=== PATIENT | male | born 1955 | race Caucasian/White ===

== ENCOUNTER 2017-06-12 14:34 | Emergency (ER) | payer MEDICAID, SELFPAY ==
[2017-06-12 14:37] VITALS: BP 128/84; PULSE 94; RESP 17; TEMP 37.3; O2SAT 93; BMI 29.5
--- NOTE | 2017-06-12 15:10 | EKG12_ITS ---
Test Reason : FALL Blood Pressure : / mmHG Vent. Rate : 089 BPM Atrial Rate : 089 BPM P-R Int : 194 ms QRS Dur : 096 ms QT Int : 352 ms P-R-T Axes : 045 -01 062 degrees QTc Int : 428 ms Normal sinus rhythm Inferior [place], age undetermined, cannot be excluded Confirmed by [address], KYLAH ([id number]), editor newspaper SATNAM MCFARLANE ([id number]) on 06/16/2017 1:13:41 PM Referred By: LYNETTE Confirmed By:KYLAH LEDEZMA MD
--- NOTE | 2017-06-12 15:10 | CT_ITS ---
STUDY: CT BRAIN WITHOUT CONTRAST REASON FOR EXAM: Male, 62 years old. Fell, + ETOH, laceration to bridge of nose. Hx hypertension, prostate cancer. RADIATION DOSAGE (If Supplied By Facility): CTDIvol = ( 44.99 ) mGy, DLP = ( 812.98 ) mGycm TECHNIQUE: Transaxial CT imaging of the brain was performed without administration of intravenous contrast material. Individualized dose optimization techniques were used for this CT. COMPARISON: None. FINDINGS: Normal soft tissue structures. Normal calvarium. Nasal bone fracture. There are calcifications around the cavernous carotid arteries. This is consistent for atherosclerotic disease. Normal size ventricles and extra-axial spaces for the patient's age. Normal white matter tracts of the cerebral hemispheres. Normal basal ganglia and thalami. Normal brainstem. Normal cerebellum. There is no intracranial hemorrhage. There are no findings of an acute ischemic infarction. There is mild maxillary sinus disease. There is an old right basal ganglia lacunar infarct. CT/Brain/Head without Contrast IMPRESSION: Normal unenhanced CT scan of the brain. Nasal bone fracture. Electronically Signed: Yvan Clifford MD at 17:37 EST , Service support ,
[2017-06-12] MEDS: 0.9% Normal Saline 1,000 ML 150 ML IV (15:43)
[2017-06-12] MEDS: Diphth,Pertuss(Acell),Tet Vac 0.5 ML Vial IM (15:43)
--- NOTE | 2017-06-12 15:46 | ED.DCSUM_ITS ---
- ER Visit Summary Date of Service: 06/12/17 Chief Complaint: Fall, blacked out History of Present Illness: The patient is a 62 M with a history of alcoholism. Patient states he has had approximately 6 24 ounce drinks today. He went to [facility] today to request detox. He apparently lost his balance walking down a ramp and fell. He states he either passed out briefly or blacked out. Patient does state that he normally drinks 6-12 24 ounce beers daily. He last went through detox last summer at [facility]. He states he has never had withdrawal seizures. Physical Examination: Vital signs are unremarkable. Patient's lying in bed in no acute distress. Head and neck examination reveals abrasions across the nasal bridge. There is no C-spine tenderness. Heart is regular rate and rhythm. Lung sounds are clear. Abdomen is soft nontender. Extremity examination is unremarkable. He has strong distal pulses with a normal neuro exam. Test Results: EKG is sinus 89 with no sign of acute ischemia. CT head is normal brain. There is a nasal bone fracture noted. CBC and chemistry studies are grossly unremarkable. He has mild hyponatremia 134. LFTs are significant only for an ALT is 69. Coags normal. EtOH is 336. Emergency Department Course and Treatment: Patient's nasal wounds were cleansed. He has large abrasions with areas of skin avulsion. There is no laceration amenable to suture. Patient is given a dose of Keflex due to the underlying nasal bone fracture. Patient tells me repeatedly that he does not want to go home, he wants to be admitted for detox. Although patient states he is starting to feel shaky has he has no visible tremor. He is not tachycardic. He is able to get up and ambulate to the restroom without difficulty. Spoke with the hospitalist and asked if there was any way to admit him for treatment with [facility]. I was advised they could not admit him for this. Patient was given the number for [facility] encouraged to call tomorrow morning. Patient has been in the ER 5-1/2 hours at this point. Treatment Plan: [] Disposition: Discharge Impression: 1. EtOH intoxication 2. Nasal bone fracture 3. Nasal abrasions 4. Fall This note was generated with [employer] dictation software. It may contain incorrect words, spelling, and punctuation that were not noted in review of the chart prior to signing ED Disposition - Plan for ED Patient: Disposition: Home or Assisted Living Chief Complaint: Fall Instructions: ED Abrasion, ED Alcohol Intoxication, ED Mechanical Fall, ED Fx Nasal Conf W X Ray Prescriptions: Cephalexin [Keflex] 500 mg PO Q6 #40 capsule Referrals: [facility] Doctor,Out of [NON-STAFF] - Additional Instructions: Please call [facility] tomorrow to be evaluated for detox [phone]
[2017-06-12 16:30] LABS: Absolute Lymphocyte Count 1.11 X10^3/ul (0.83-4.51); Absolute Neutrophil Count 4.5 X10^3/uL (2.0-7.7); Basophil# 0.14 X10^3/uL; Basophil% 2.2 % (0-1); Eosinophil# 0.06 X10^3/uL; Eosinophils% 0.9 % (0-5); Hematocrit 44.6 % (40-54); Hemoglobin 15.1 g/dl (13.0-16.5); Lymphocyte # 1.11 X10^3/ul (4.0); Lymphocyte % 17.5 % (19-41); Mean Corp Hgb Conc 33.9 g/gl (32-36); Mean Corpuscular Hgb 30.7 pg (27.0-32.0); Mean Corpuscular Volume 90.7 fL (80-94); Mean Platelet Vol. 9.3 fl (6.2-12.0); Monocyte# 0.48 X10^3/uL; Monocyte% 7.6 % (0-10); Neutrophil # 4.53 X10^3/uL (2.7-7.7); Neutrophil % 71.5 % (47-70); Platelet Count 305 K/mm3 (150-450); RBC Distribution Width CV 14.4 % (11.6-14.6); RBC Distribution Width SD 46.7 fl (35.1-43.9); Red Blood Count 4.92 M/mm3 (4.6-6.2); White Blood Count 6.3 K/mm3 (4.4-11.0)
[2017-06-12 16:32] LABS: POSITIVE COUNT NO; POSITIVE DIFFERENTIAL NO; POSITIVE MORPHOLOGY NO; Prothrombin Time (Protime)PT. 12.6 SECONDS (11.7-14.9)
[2017-06-12 16:33] LABS: Partial Thromboplast Time 24.3 Seconds (24.1-36.2)
[2017-06-12 16:45] LABS: AST(SGOT) 37 U/L (15-37); Alanine Aminotransfer ALT/SGPT 69 U/L (16-61); Albumin, Serum 4.3 g/dL (3.2-5.0); Alkaline Phosphatase 85 U/L (45-117); Anion Gap 14 (5-15); BUN 5 mg/dL (7-18); BUN/Creat Ratio 9.8 RATIO (10-20); Bilirubin, Direct 0.07 mg/dL (0.00-0.30); Calcium,Total 8.6 mg/dL (8.5-10.1); Chloride 98 mmol/L (98-107); Creatinine, Serum 0.51 mg/dL (0.70-1.30); EST Glomerular Filtration Rate 177 mL/min (>60); Est Glom Filt Rate - Afr Amer 214 mL/min (>60); Globulin 3.8 g/dL (2.2-4.2); Glucose 85 mg/dL (74-106); Protein, Total 8.1 g/dL (6.4-8.2); Sodium Level 134 mmol/L (136-145)
--- NOTE | 2017-06-12 17:20 | ED.RN ---
this rn received call from, pt etoh 336. dr. goodwin and yun rn informed.
--- NOTE | 2017-06-12 19:13 | ED.DEP ---
ED Disposition - Plan for ED Patient: Disposition: Home or Assisted Living Chief Complaint: Fall Instructions: ED Mechanical Fall, ED Fx Nasal Conf W X Ray, ED Abrasion, ED Alcohol Intoxication Prescriptions: Cephalexin [Keflex] 500 mg PO Q6 #40 capsule Referrals: [facility] Doctor,Out of [NON-STAFF] - Additional Instructions: Please call [facility] tomorrow to be evaluated for detox [phone]
--- NOTE | 2017-06-12 19:17 | DCINST.ED_ITS ---
ED Disposition - Plan for ED Patient: Disposition: Home or Assisted Living Chief Complaint: Fall Instructions: ED Mechanical Fall, ED Fx Nasal Conf W X Ray, ED Abrasion, ED Alcohol Intoxication Prescriptions: Cephalexin [Keflex] 500 mg PO Q6 #40 capsule Referrals: [facility] Doctor,Out of [NON-STAFF] - Additional Instructions: Please call [facility] tomorrow to be evaluated for detox [phone]
[2017-06-12] MEDS: LORazepam 1 MG Tablet PO (19:59)
[2017-06-12] MEDS: Cephalexin 250 MG Capsule 500 MG PO (19:59)
[2017-06-12 20:01] VITALS: BP 132/86; RESP 14; RESP 17
== END 2017-06-12 20:02 | disposition home or self-care (01) ==
PROVIDERS: Emergency Provider Emergency Medicine
DX: S02.2XXA Fracture of nasal bones, initial encounter for closed fracture (principal); F10.129 Alcohol abuse with intoxication, unspecified; E87.1 Hypo-osmolality and hyponatremia; I10 Essential (primary) hypertension; G62.9 Polyneuropathy, unspecified; Z85.46 Personal history of malignant neoplasm of prostate; Z72.0 Tobacco use; R00.0 Tachycardia, unspecified; Z79.899 Other long term (current) drug therapy; Z79.891 Long term (current) use of opiate analgesic; W10.2XXA Fall (on)(from) incline, initial encounter; Y93.01 Activity, walking, marching and hiking; Y92.538 Other ambulatory health services establishments as the place of occurrence of the external cause; Y99.8 Other external cause status; Y90.8 Blood alcohol level of 240 mg/100 ml or more
CPT/HCPCS: 70450; 80048; 80076; 80320; 85025; 85610; 85730; 90715; 93005; 96360; 96361; 99285; J7030; G0480

== ENCOUNTER 2017-06-13 15:20 | Inpatient (IN) | payer MEDICAID, SELFPAY ==
[2017-06-13 15:50] VITALS: BMI 27.7
[2017-06-13 15:56] VITALS: BMI 27.7
[2017-06-13 16:00] VITALS: BP 145/95; PULSE 104; RESP 18; TEMP 36.8; O2SAT 97
[2017-06-13] MEDS: Buprenorphine HCl 2 MG TAB.SUBL SL (17:23)
[2017-06-13] MEDS: Methocarbamol 750 MG Tablet PO ×2 (17:24→23:49)
[2017-06-13] MEDS: QUEtiapine 25 MG Tablet PO ×2 (17:25→23:49)
[2017-06-13] MEDS: cloNIDine HCl 0.1 MG Tablet PO ×2 (17:25→21:25)
[2017-06-13] MEDS: Dicyclomine 10 MG Capsule 20 MG PO ×2 (17:25→23:49)
[2017-06-13] MEDS: LORazepam 1 MG Tablet PO ×2 (17:25→21:21)
[2017-06-13 17:42] LABS: Absolute Lymphocyte Count 0.94 X10^3/ul (0.83-4.51); Absolute Neutrophil Count 4.1 X10^3/uL (2.0-7.7); Basophil# 0.13 X10^3/uL; Basophil% 2.3 % (0-1); Eosinophil# 0.04 X10^3/uL; Eosinophils% 0.7 % (0-5); Hematocrit 44.3 % (40-54); Hemoglobin 15.3 g/dl (13.0-16.5); Lymphocyte # 0.94 X10^3/ul (4.0); Lymphocyte % 16.6 % (19-41); Mean Corp Hgb Conc 34.5 g/gl (32-36); Mean Corpuscular Hgb 31.2 pg (27.0-32.0); Mean Corpuscular Volume 90.2 fL (80-94); Mean Platelet Vol. 9.6 fl (6.2-12.0); Monocyte# 0.43 X10^3/uL; Monocyte% 7.6 % (0-10); Neutrophil # 4.09 X10^3/uL (2.7-7.7); Neutrophil % 72.1 % (47-70); POSITIVE COUNT NO; POSITIVE DIFFERENTIAL NO; POSITIVE MORPHOLOGY NO; Platelet Count 330 K/mm3 (150-450); RBC Distribution Width CV 14.7 % (11.6-14.6); RBC Distribution Width SD 47.7 fl (35.1-43.9); Red Blood Count 4.91 M/mm3 (4.6-6.2); White Blood Count 5.7 K/mm3 (4.4-11.0)
[2017-06-13 17:50] LABS: ALB/GLOB Ratio 1.2 RATIO (0.9-2.4); AST(SGOT) 41 U/L (15-37); Alanine Aminotransfer ALT/SGPT 67 U/L (16-61); Albumin, Serum 4.3 g/dL (3.2-5.0); Alkaline Phosphatase 85 U/L (45-117); Anion Gap 15 (5-15); BUN 5 mg/dL (7-18); BUN/Creat Ratio 8.8 RATIO (10-20); Calcium,Total 8.8 mg/dL (8.5-10.1); Chloride 101 mmol/L (98-107); Creatinine, Serum 0.57 mg/dL (0.70-1.30); EST Glomerular Filtration Rate 156 mL/min (>60); Est Glom Filt Rate - Afr Amer 189 mL/min (>60); Estimated Creatinine Clearance 164.72 ml/min; Globulin 3.7 g/dL (2.2-4.2); Glucose 82 mg/dL (74-106); Magnesium 2.3 mg/dL (1.6-2.6); Potassium 3.9 mmol/L (3.5-5.1); Sodium Level 136 mmol/L (136-145)
[2017-06-13 19:54] LABS: Bacteria 0 SEEN /hpf (None Seen); Mucous, Urine 0 SEEN /hpf (<or=2+)
[2017-06-13 20:06] LABS: Color, Urine Yellow (Yellow); Glucose, Dipstick 250 mg/dl (Normal); Ketone-Dipstick 5 mg/dl (Negative); Leukocyte Esterase-Dipstick 25 /ul (Negative); Nitrite-Dipstick Negative (Negative); Occult Blood-Urine 250 /ul (Negative); Protein-Dipstick 30 mg/dl (Negative); Urine Bilirubin Dipstick Negative (Negative); Urine Clarity Clear (Clear); Urine Urobilinogen Normal (Normal)
[2017-06-13 20:16] LABS: Amphetamine Urine VISTA NEGATIVE (<1000 ng/mL); Barbiturate Urine VISTA NEGATIVE (< 200 ng/mL); Benzodiazepine Urine VISTA NEGATIVE (< 200 ng/mL); Cocaine Urine VISTA NEGATIVE (< 300 ng/mL); Ecstacy Urine VISTA NEGATIVE (< 500 ng/mL); Methadone Urine VISTA NEGATIVE (< 300 ng/mL); PCP Urine VISTA NEGATIVE (< 25 ng/mL); THC Urine VISTA NEGATIVE (< 50 ng/mL); Vista UDS pH Range 6
[2017-06-13 20:40] LABS: Amorphous Sediment 1+; Red Blood Cells-Urine 10-25 SEEN /hpf (0-5); Squamous Epithelial Cells - UA 5-10 SEEN /hpf (0-5); White Blood Cells 5-10 SEEN /hpf (0-5)
--- NOTE | 2017-06-13 21:16 | PCM.HP.STD ---
Problem List (1) Alcohol dependency Status: Acute Qualifiers: Substance use status: uncomplicated Qualified Code(s): F10.20 - Alcohol dependence, uncomplicated (2) Urinary incontinence with continuous leakage Status: Chronic (3) Chronic back pain Status: Chronic (4) Alcohol withdrawal Status: Acute Qualifiers: Complication of substance-induced condition: uncomplicated Qualified Code(s): F10.230 - Alcohol dependence with withdrawal, uncomplicated (5) History of prostate cancer Status: Acute History of Present Illness Date of Admission: 06/13/17 Chief Complaint: Alcohol withdrawal Patient is a 62 years old male with history of alcohol dependency. He consumes about 6 to 9 cans of 24 oz each a day, drinks through out the days. He had alcohol dependency rehabilitation 6 times in the past, last was in December 2016, where he remained sober for about 2 weeks. He states that he had bad withdrawal in the past, but he had no history of seizure or hallucination associated with withdrawal. Past Medical History Past Medical History (Chronic Problems): Chronic Problems Urinary incontinence with continuous leakage (Chronic) Chronic back pain (Chronic) Allergies ciprofloxacin [From Cipro] Allergy (Verified 06/13/17 16:27) Other PT STATES MAKES ME FALL DOWN Home Medications: Ambulatory Orders Medication Instructions Recorded Diltiazem HCl [Diltiazem 24Hr Cd] 240 mg PO DAILY 06/12/17 Lisinopril [Lisinopril] 20 mg PO DAILY 06/12/17 Oxycodone HCl/Acetaminophen 1 tab PO TID PRN 06/12/17 [Oxycodone-Acetaminophen 10-325] Surgical History: TURP Smoking Status: Current every day smoker Alcohol: Heavy Drugs: Cocaine - History of. No recent use., Marijuana - Occasionally. - *Family History Maternal History Items: No pertinent history Review of Systems Comment: ROS: In general: Patient has been in fair health. Weight is stable. NO fever, chills, or night sweats. Generalized feeling of tiredness. HEENT: Unremarkable. Patient denied of any dizziness, chronic headache, blurred vision, double vision, dry mouth, or nasal congestion. CV/respiratory: There is no exertional shortness of breath, chest pain, palpitation, wheezing, cough, claudication, cold feet, or peripheral edema. GI: Patient denied any abdominal pain, nausea, vomiting, diarrhea, constipation, melena, or hematochezia. : Urinary incontinence after prostate surgery. Neurology: Unremarkable. There is no history of seizure as an adult. Psychological: See HPI. Endocrine: Unremarkable. Musculoskeletal: Unremarkable. VTE Information - Inpt Only VTE Present on Admission: No VTE Mechan Device Prophylaxis: None VTE Pharm Prophylaxis ordered?: No Reason prophylaxis not ordered:: Treatment Not Indicated - Low risk. Patient Problems: Active and Suspected Problems Alcohol dependency (Acute) Alcohol withdrawal (Acute) History of prostate cancer (Acute) Objective: In general, patient is a well-nourished and developed adult. HEENT: Abrasion of left forehead and bridge of nose noted from an episode of fall yesterday while he was intoxicated. Heart: Auscultation is normal with regular rhythm and rate. There is no extra heart sounds, or murmurs. S1 and S2 are present. Point of maximal impulse is not displaced. Lungs: Lungs are clear to auscultation bilaterally. There is no wheezing, or crackles. Abdomen: Abdominal wall is non-tender, and non-distended. There is no palpable mass or organomegaly. Normoactive bowel sounds are present. Extremities: There is no cyanosis or clubbing. Peripheral pulses are palpable. There is no edema. Skin: There are no any skin discoloration or lesions. Neurological: CN II - XII are intact. Sensory and motor functions are grossly normal with no obvious deficit. Cerebellar functions are within normal range. Gait was not tested. - Physical Exam Vital Signs Temp Pulse Resp BP Pulse Ox 98.3 F 104 H 18 145/95 H 97 06/13/17 16:00 06/13/17 16:00 06/13/17 16:00 06/13/17 16:00 06/13/17 16:00 Oxygen Delivery Method Room Air Weight: 222 lb Body Mass Index (BMI) 27.7 Intake and Output for Last 24 Hours 06/11/17 06/12/17 06/13/17 23:59 23:59 23:59 Intake Total 600 / 600 Balance 600 / 600 Laboratory Tests Past 24 Hrs 06/13/17 06/13/17 06/13/17 17:17 17:17 19:45 WBC 5.7 RBC 4.91 Hgb 15.3 Hct 44.3 MCV 90.2 MCH 31.2 MCHC 34.5 RDW 14.7 H RDW Differential 47.7 H Plt Count 330 MPV 9.6 Immature Gran % (Auto) 0.700 Neut % (Auto) 72.1 H Lymph % (Auto) 16.6 L [place] % (Auto) 7.6 Eos % (Auto) 0.7 Baso % (Auto) 2.3 H Absolute Neuts (auto) 4.1 Absolute Lymphs (auto) 0.94 Total Counted Not Reportable Sodium 136 Potassium 3.9 Chloride 101 Carbon Dioxide 20.0 L Anion Gap 15 BUN 5 L Creatinine 0.57 L Estim Creat Clear Calc 164.72 Est GFR (MDRD) Af Amer 189 Est GFR (MDRD) Non-Af 156 BUN/Creatinine Ratio 8.8 L Glucose 82 Calcium 8.8 Magnesium 2.3 Total Bilirubin 0.30 AST 41 H ALT 67 H Alkaline Phosphatase 85 Total Protein 8.0 Albumin 4.3 Globulin 3.7 Albumin/Globulin Ratio 1.2 Urine Color Urine Clarity Urine pH Ur Specific [place] Urine Protein Urine Glucose (UA) Urine Ketones Urine Occult Blood Urine Nitrite Urine Bilirubin Urine Urobilinogen Ur Leukocyte Esterase Urine RBC Urine WBC Ur Squamous Epith Cells Amorphous Sediment Urine Bacteria Urine Mucus Urine Opiates Screen NEGATIVE Urine Methadone Screen NEGATIVE Ur Barbiturates Screen NEGATIVE Ur Phencyclidine Scrn NEGATIVE Ur Amphetamines Screen NEGATIVE U Methamphetamin-MDMA NEGATIVE U Benzodiazepines Scrn NEGATIVE Urine Cocaine Screen NEGATIVE U Cannabinoids Screen NEGATIVE Ur Drug Screen Comment 06/13/17 19:45 WBC RBC Hgb Hct MCV MCH MCHC RDW RDW Differential Plt Count MPV Immature Gran % (Auto) Neut % (Auto) Lymph % (Auto) [place] % (Auto) Eos % (Auto) Baso % (Auto) Absolute Neuts (auto) Absolute Lymphs (auto) Total Counted Sodium Potassium Chloride Carbon Dioxide Anion Gap BUN Creatinine Estim Creat Clear Calc Est GFR (MDRD) Af Amer Est GFR (MDRD) Non-Af BUN/Creatinine Ratio Glucose Calcium Magnesium Total Bilirubin AST ALT Alkaline Phosphatase Total Protein Albumin Globulin Albumin/Globulin Ratio Urine Color Yellow Urine Clarity Clear Urine pH 6.0 Ur Specific [place] 1.020 Urine Protein 30 H Urine Glucose (UA) 250 H Urine Ketones 5 H Urine Occult Blood 250 H Urine Nitrite Negative Urine Bilirubin Negative Urine Urobilinogen Normal Ur Leukocyte Esterase 25 H Urine RBC 10-25 SEEN Urine WBC 5-10 SEEN Ur Squamous Epith Cells 5-10 SEEN Amorphous Sediment 1+ Urine Bacteria 0 SEEN Urine Mucus 0 SEEN Urine Opiates Screen Urine Methadone Screen Ur Barbiturates Screen Ur Phencyclidine Scrn Ur Amphetamines Screen U Methamphetamin-MDMA U Benzodiazepines Scrn Urine Cocaine Screen U Cannabinoids Screen Ur Drug Screen Comment Assessment/Plan Active and Suspected Problems Alcohol dependency (Acute) Alcohol withdrawal (Acute) History of prostate cancer (Acute) Patient is a 62 years old male with history of alcohol dependency. He consumes about 6 to 9 cans of 24 oz each a day, drinks through out the days. He had alcohol dependency rehabilitation 6 times in the past, last was in December 2016, where he remained sober for about 2 weeks. He states that he had bad withdrawal in the past, but he had no history of seizure or hallucination associated with withdrawal. #1 Alcohol withdrawal. Follow [facility] stabilization protocol for alcohol, along with opiate withdrawal for oxycodone use. #2 Urinary incontinence. Chronic. #3 History of prostate cancer. #4 Chronic back pain. #5 S/P Fall while intoxicated. #6 Nicotine dependency. Nicotine path was provided. VTE prophylaxis: early ambulation. Patient is low risk. GI prophylaxis: H2 linh po. Patient is full code. Disposition: To be determined by [facility]. Code Visit Inpatient E&M: 10920 Init Hosp L2
[2017-06-13] MEDS: Famotidine 20 MG Tablet PO (21:25)
[2017-06-13] MEDS: traZODone 50 MG Tablet PO (21:25)
[2017-06-13 21:34] VITALS: BP 114/71; PULSE 112; RESP 18; TEMP 36.8; O2SAT 96
[2017-06-13] MEDS: dilTIAZem CD 240 MG Capsule PO (22:23)
[2017-06-13] MEDS: Lisinopril 20 MG Tablet PO (22:23)
[2017-06-13] MEDS: Pramipexole Di-HCl 0.25 MG Tablet PO (22:26)
[2017-06-13 22:34] VITALS: PULSE 125
[2017-06-13 22:48] VITALS: PULSE 142
[2017-06-13 23:51] VITALS: BP 99/59; PULSE 122; RESP 18; TEMP 36.8; O2SAT 96
[2017-06-14] VITALS (16 sets, daily range): BP systolic 85–113; BP diastolic 47–72; PULSE 89–109; RESP 16–18; TEMP 36.1–37.4; O2SAT 92–96
[2017-06-14] MEDS: LORazepam 1 MG Tablet PO ×5 (00:49→18:31)
[2017-06-14] MEDS: Buprenorphine HCl 2 MG TAB.SUBL SL ×3 (02:07→17:58)
[2017-06-14] MEDS: cloNIDine HCl 0.1 MG Tablet PO ×3 (02:07→21:24)
[2017-06-14] MEDS: Gabapentin 800 MG Tablet PO ×3 (05:22→17:59)
[2017-06-14] MEDS: Multivitamins,Ther W-Minerals Tablet 1 TABLET PO (08:27)
[2017-06-14] MEDS: Folic Acid 1 MG Tablet PO (08:27)
[2017-06-14] MEDS: Famotidine 20 MG Tablet PO ×2 (08:27→21:33)
[2017-06-14] MEDS: Thiamine Hydrochloride 100 MG Tablet PO (08:27)
--- NOTE | 2017-06-14 09:43 | PCM.PN.HOSP ---
Patient Problems: Active and Suspected Problems Alcohol dependency (Acute) Alcohol withdrawal (Acute) History of prostate cancer (Acute) Subjective: Patient is a 62-year-old male with a past medical history of severe alcohol abuse and prostate cancer who was admitted because he wanted to detox from alcohol and opiates. He is currently on the [facility] protocol for alcohol withdrawal and opiate withdrawal. Objective: Patient seen and examined. He complains of tremors in his upper extremities. He denies fever but admits to chills. He denies any nausea vomiting, any abdominal pain, any diarrhea, any cough or shortness of breath. Review of systems otherwise negative. Per discussion with nurse, CIWA score today is 5. According to nurse, patient was tachycardic up to the 130s yesterday. However his blood pressure was found in the 90s. Patient is on Cardizem for history of tachycardia and is also receiving clonidine per alcohol withdrawal protocol. Vitals/I&O's: Vital Signs Temp Pulse Resp BP Pulse Ox 98.3 F 103 H 18 94/56 L 92 06/14/17 08:16 06/14/17 08:16 06/14/17 08:16 06/14/17 08:16 06/14/17 08:16 Oxygen Delivery Method Room Air Weight: 222 lb Body Mass Index (BMI) 27.7 Intake and Output for Last 24 Hours 06/12/17 06/13/17 06/14/17 23:59 23:59 23:59 Intake Total 600 / 600 550 / 550 Balance 600 / 600 550 / 550 General: Alert, Oriented x3, Cooperative, - - Mild distress HEENT: Atraumatic, PERRLA, EOMI, Normocephalic Oral: Dry Mucosa Neck: Supple, No JVD, Negative Carotid Bruits Lungs: Clear to auscultation, Normal air movement, No rhonchi Cardiovascular: Regular Rhythm, Normal S1, Normal S2, No murmurs, Tachycardic Abdomen: Bowel Sounds Present, Soft, Non Tender, Non-Distended, No Hepato-splenomegaly Extremities: No clubbing, No cyanosis, No edema, Capillary Refill Less than 3 Seconds Skin: No rashes, No breakdown Musculoskeletal: No Tenderness to Palpation of Joints or Extremities Lymphatic: No Cervical, Supraclavicular, or Inguinal Adenopathy Neurological: Cranial nerves II-XII grossly intact, Motor Exam 5/5 strength throughout Psych/Mental Status: Anxious, Alert and oriented to time, place, person, mood and affect Laboratory Results 06/13/17 17:17: WBC 5.7, RBC 4.91, Hgb 15.3, Hct 44.3, MCV 90.2, MCH 31.2, MCHC 34.5, RDW 14.7 H, RDW Differential 47.7 H, Plt Count 330, MPV 9.6, Immature Gran % (Auto) 0.700, Neut % (Auto) 72.1 H, Lymph % (Auto) 16.6 L, [place] % (Auto) 7.6, Eos % (Auto) 0.7, Baso % (Auto) 2.3 H, Absolute Neuts (auto) 4.1, Absolute Lymphs (auto) 0.94, Total Counted Not Reportable 06/13/17 17:17: Sodium 136, Potassium 3.9, Chloride 101, Carbon Dioxide 20.0 L, Anion Gap 15, BUN 5 L, Creatinine 0.57 L, Estim Creat Clear Calc 164.72, Est GFR (MDRD) Af Amer 189, Est GFR (MDRD) Non-Af 156, BUN/Creatinine Ratio 8.8 L, Glucose 82, Calcium 8.8, Magnesium 2.3, Total Bilirubin 0.30, AST 41 H, ALT 67 H, Alkaline Phosphatase 85, Total Protein 8.0, Albumin 4.3, Globulin 3.7, Albumin/Globulin Ratio 1.2 06/13/17 19:45: Urine Opiates Screen NEGATIVE, Urine Methadone Screen NEGATIVE, Ur Barbiturates Screen NEGATIVE, Ur Phencyclidine Scrn NEGATIVE, Ur Amphetamines Screen NEGATIVE, U Methamphetamin-MDMA NEGATIVE, U Benzodiazepines Scrn NEGATIVE, Urine Cocaine Screen NEGATIVE, U Cannabinoids Screen NEGATIVE, Ur Drug Screen Comment 06/13/17 19:45: Urine Color Yellow, Urine Clarity Clear, Urine pH 6.0, Ur Specific [place] 1.020, Urine Protein 30 H, Urine Glucose (UA) 250 H, Urine Ketones 5 H, Urine Occult Blood 250 H, Urine Nitrite Negative, Urine Bilirubin Negative, Urine Urobilinogen Normal, Ur Leukocyte Esterase 25 H, Urine RBC 10-25 SEEN, Urine WBC 5-10 SEEN, Ur Squamous Epith Cells 5-10 SEEN, Amorphous Sediment 1+, Urine Bacteria 0 SEEN, Urine Mucus 0 SEEN Current Medications Acetaminophen (Tylenol) 500 mg PO Q4H PRN PRN PRN Reason: Temp > 100.4 F Al Hydroxide/Mg Hydroxide (Mylanta Ii) 30 ml PO Q6H PRN PRN PRN Reason: dyspesia Bisacodyl (Dulcolax) 10 mg RECTAL DAILY PRN PRN Reason: Constipation Buprenorphine HCl (Buprenorphine Hcl) 4 mg SL Q8H [facility] PRN Reason: Taper Stop: 06/16/17 21:59 Last Admin: 06/14/17 02:07 Dose: 4 mg Clonidine (Catapres) 0.1 mg PO Q4 [facility] Last Admin: 06/14/17 05:37 Dose: 0.1 mg Dicyclomine HCl (Bentyl) 20 mg PO Q6H PRN PRN PRN Reason: abdominal discomfort Last Admin: 06/13/17 23:49 Dose: 20 mg Diltiazem HCl (Cardizem Cd) 240 mg PO DAILY [facility] Last Admin: 06/13/17 22:23 Dose: 240 mg Famotidine (Pepcid) 20 mg PO BID [facility] Last Admin: 06/14/17 08:27 Dose: 20 mg Folic Acid (Folic Acid) 1 mg PO DAILY@0800 [facility] Last Admin: 06/14/17 08:27 Dose: 1 mg Gabapentin (Neurontin) 800 mg PO TIDCM [facility] Last Admin: 06/14/17 05:22 Dose: 800 mg Hydroxyzine Pamoate (Vistaril) 50 mg PO Q6H PRN PRN PRN Reason: Mild Anxiety (score 1/3) Last Admin: 06/13/17 21:30 Dose: 50 mg Ibuprofen (Motrin) 600 mg PO Q8H PRN PRN PRN Reason: Mild-Moderate Pain (1-5/10) Influenza Virus Vaccine Quadrival (Fluarix/Fluzone) 0.5 ml IM .ONCE ONE Stop: 06/14/17 10:01 Last Admin: 06/14/17 08:28 Dose: 0.5 ml Lisinopril (Zestril) 20 mg PO DAILY [facility] Last Admin: 06/14/17 08:23 Dose: Not Given Loperamide HCl (Imodium) 2 - 4 mg PO UD PRN PRN Reason: LOOSE STOOLS Lorazepam (Ativan) 1 mg PO Q4H [facility] PRN Reason: Taper Stop: 06/16/17 20:44 Last Admin: 06/14/17 08:27 Dose: 1 mg Magnesium Hydroxide (Milk Of Magnesia) 30 ml PO DAILY PRN PRN PRN Reason: Constipation Methocarbamol (Methocarbamol) 750 mg PO Q6H PRN PRN PRN Reason: Muscle Aches Last Admin: 06/13/17 23:49 Dose: 750 mg [facility]ivit[facility]/Minerals ([facility]) [facility] Last Admin: 06/14/17 08:27 Dose: 1 tablet Nicotine (Nicoderm Cq (Pbkc)) 21 mg TRANSDERM. DAILY [facility] Last Admin: 06/14/17 08:27 Dose: 21 mg Ondansetron HCl (Zofran Odt) 4 mg PO Q6H PRN PRN PRN Reason: NAUSEA Pramipexole Dihydrochloride (Mirapex) 0.25 mg PO Q12H PRN PRN PRN Reason: Restless legs Last Admin: 06/13/17 22:26 Dose: 0.25 mg Quetiapine Fumarate (Seroquel) 25 mg PO Q6H PRN PRN PRN Reason: Moderate Anxiety (score 2/3) Last Admin: 06/13/17 23:49 Dose: 25 mg Senna (Senokot) 1 tablet PO QHS PRN PRN Reason: Constipation Thi[facility] ([facility]amin B1) [facility] Last Admin: 06/14/17 08:27 Dose: 100 mg Trazodone HCl (Desyrel) 50 mg PO QHS [facility] Last Admin: 06/13/17 21:25 Dose: 50 mg Assessment/Plan Active and Suspected Problems Alcohol dependency (Acute) Alcohol withdrawal (Acute) History of prostate cancer (Acute) 1. Alcohol withdrawal Complaining of tremors. CIWA score today is 5. He has remained tachycardic which resolved with administration of Cardizem. He does have a history of sinus tachycardia and is on Cardizem for that. However blood pressure has been down in the 90s. Will keep on Cardizem and hold lisinopril. On alcohol withdrawal protocol per [facility] protoco 2. History of sinus tachycardia as documented above. Heart rate went up to the 130s yesterday but came down to the 90s with initiation of Cardizem. currently improving. Will continue cardizem 3. History of prostate cancer: Stable. 4. Chronic back pain: Is prescribed oxycodone by his PCP. Currently on opiate withdrawal protocol as well. 5. Nicotine dependence: On nicotine patch 6. Attention: On lisinopril and Cardizem. Lisinopril currently on hold due to hypotension. 7. DVT Prophylaxis: Encourage ambulation. Heparin 8. GI prophylaxis:famotidine This note was generated with [employer] software. It may contain incorrect words, spelling, and punctuation that were not noted in checking the note before signing. Code Visit Inpatient E&M: 48642 Subs Hosp L3
--- NOTE | 2017-06-14 09:51 | PN_ITS ---
Patient Problems: Active and Suspected Problems Alcohol dependency (Acute) Alcohol withdrawal (Acute) History of prostate cancer (Acute) Subjective: Patient is a 62-year-old male with a past medical history of severe alcohol abuse and prostate cancer who was admitted because he wanted to detox from alcohol and opiates. He is currently on the [facility] protocol for alcohol withdrawal and opiate withdrawal. Objective: Patient seen and examined. He complains of tremors in his upper extremities. He denies fever but admits to chills. He denies any nausea vomiting, any abdominal pain, any diarrhea, any cough or shortness of breath. Review of systems otherwise negative. Per discussion with nurse, CIWA score today is 5. According to nurse, patient was tachycardic up to the 130s yesterday. However his blood pressure was found in the 90s. Patient is on Cardizem for history of tachycardia and is also receiving clonidine per alcohol withdrawal protocol. Vitals/I&O's: Vital Signs Temp Pulse Resp BP Pulse Ox 98.3 F 103 H 18 94/56 L 92 06/14/17 08:16 06/14/17 08:16 06/14/17 08:16 06/14/17 08:16 06/14/17 08:16 Oxygen Delivery Method Room Air Weight: 222 lb Body Mass Index (BMI) 27.7 Intake and Output for Last 24 Hours 06/12/17 06/13/17 06/14/17 23:59 23:59 23:59 Intake Total 600 / 600 550 / 550 Balance 600 / 600 550 / 550 General: Alert, Oriented x3, Cooperative, - - Mild distress HEENT: Atraumatic, PERRLA, EOMI, Normocephalic Oral: Dry Mucosa Neck: Supple, No JVD, Negative Carotid Bruits Lungs: Clear to auscultation, Normal air movement, No rhonchi Cardiovascular: Regular Rhythm, Normal S1, Normal S2, No murmurs, Tachycardic Abdomen: Bowel Sounds Present, Soft, Non Tender, Non-Distended, No Hepato- splenomegaly Extremities: No clubbing, No cyanosis, No edema, Capillary Refill Less than 3 Seconds Skin: No rashes, No breakdown Musculoskeletal: No Tenderness to Palpation of Joints or Extremities Lymphatic: No Cervical, Supraclavicular, or Inguinal Adenopathy Neurological: Cranial nerves II-XII grossly intact, Motor Exam 5/5 strength throughout Psych/Mental Status: Anxious, Alert and oriented to time, place, person, mood and affect Laboratory Results 06/13/17 17:17: WBC 5.7, RBC 4.91, Hgb 15.3, Hct 44.3, MCV 90.2, MCH 31.2, MCHC 34.5, RDW 14.7 H, RDW Differential 47.7 H, Plt Count 330, MPV 9.6, Immature Gran % (Auto) 0.700, Neut % (Auto) 72.1 H, Lymph % (Auto) 16.6 L, [place] % (Auto) 7.6, Eos % (Auto) 0.7, Baso % (Auto) 2.3 H, Absolute Neuts (auto) 4.1, Absolute Lymphs (auto) 0.94, Total Counted Not Reportable 06/13/17 17:17: Sodium 136, Potassium 3.9, Chloride 101, Carbon Dioxide 20.0 L, Anion Gap 15, BUN 5 L, Creatinine 0.57 L, Estim Creat Clear Calc 164.72, Est GFR (MDRD) Af Amer 189, Est GFR (MDRD) Non-Af 156, BUN/Creatinine Ratio 8.8 L, Glucose 82, Calcium 8.8, Magnesium 2.3, Total Bilirubin 0.30, AST 41 H, ALT 67 H , Alkaline Phosphatase 85, Total Protein 8.0, Albumin 4.3, Globulin 3.7, Albumin /Globulin Ratio 1.2 06/13/17 19:45: Urine Opiates Screen NEGATIVE, Urine Methadone Screen NEGATIVE, Ur Barbiturates Screen NEGATIVE, Ur Phencyclidine Scrn NEGATIVE, Ur Amphetamines Screen NEGATIVE, U Methamphetamin-MDMA NEGATIVE, U Benzodiazepines Scrn NEGATIVE, Urine Cocaine Screen NEGATIVE, U Cannabinoids Screen NEGATIVE, Ur Drug Screen Comment 06/13/17 19:45: Urine Color Yellow, Urine Clarity Clear, Urine pH 6.0, Ur Specific [place] 1.020, Urine Protein 30 H, Urine Glucose (UA) 250 H, Urine Ketones 5 H, Urine Occult Blood 250 H, Urine Nitrite Negative, Urine Bilirubin Negative, Urine Urobilinogen Normal, Ur Leukocyte Esterase 25 H, Urine RBC 10- 25 SEEN, Urine WBC 5-10 SEEN, Ur Squamous Epith Cells 5-10 SEEN, Amorphous Sediment 1+, Urine Bacteria 0 SEEN, Urine Mucus 0 SEEN Current Medications Acetaminophen (Tylenol) 500 mg PO Q4H PRN PRN PRN Reason: Temp > 100.4 F Al Hydroxide/Mg Hydroxide (Mylanta Ii) 30 ml PO Q6H PRN PRN PRN Reason: dyspesia Bisacodyl (Dulcolax) 10 mg RECTAL DAILY PRN PRN Reason: Constipation Buprenorphine HCl (Buprenorphine Hcl) 4 mg SL Q8H [facility] PRN Reason: Taper Stop: 06/16/17 21:59 Last Admin: 06/14/17 02:07 Dose: 4 mg Clonidine (Catapres) 0.1 mg PO Q4 [facility] Last Admin: 06/14/17 05:37 Dose: 0.1 mg Dicyclomine HCl (Bentyl) 20 mg PO Q6H PRN PRN PRN Reason: abdominal discomfort Last Admin: 06/13/17 23:49 Dose: 20 mg Diltiazem HCl (Cardizem Cd) 240 mg PO DAILY [facility] Last Admin: 06/13/17 22:23 Dose: 240 mg Famotidine (Pepcid) 20 mg PO BID [facility] Last Admin: 06/14/17 08:27 Dose: 20 mg Folic Acid (Folic Acid) 1 mg PO DAILY@0800 [facility] Last Admin: 06/14/17 08:27 Dose: 1 mg Gabapentin (Neurontin) 800 mg PO TIDCM [facility] Last Admin: 06/14/17 05:22 Dose: 800 mg Hydroxyzine Pamoate (Vistaril) 50 mg PO Q6H PRN PRN PRN Reason: Mild Anxiety (score 1/3) Last Admin: 06/13/17 21:30 Dose: 50 mg Ibuprofen (Motrin) 600 mg PO Q8H PRN PRN PRN Reason: Mild-Moderate Pain (1-5/10) Influenza Virus Vaccine Quadrival (Fluarix/Fluzone) 0.5 ml IM .ONCE ONE Stop: 06/14/17 10:01 Last Admin: 06/14/17 08:28 Dose: 0.5 ml Lisinopril (Zestril) 20 mg PO DAILY [facility] Last Admin: 06/14/17 08:23 Dose: Not Given Loperamide HCl (Imodium) 2 - 4 mg PO UD PRN PRN Reason: LOOSE STOOLS Lorazepam (Ativan) 1 mg PO Q4H [facility] PRN Reason: Taper Stop: 06/16/17 20:44 Last Admin: 06/14/17 08:27 Dose: 1 mg Magnesium Hydroxide (Milk Of Magnesia) 30 ml PO DAILY PRN PRN PRN Reason: Constipation Methocarbamol (Methocarbamol) 750 mg PO Q6H PRN PRN PRN Reason: Muscle Aches Last Admin: 06/13/17 23:49 Dose: 750 mg Multivitamins/Minerals (Multivitamin With Minerals) [facility] Last Admin: 06/14/17 08:27 Dose: 1 tablet Nicotine (Nicoderm Cq (Pbkc)) 21 mg TRANSDERM. DAILY [facility] Last Admin: 06/14/17 08:27 Dose: 21 mg Ondansetron HCl (Zofran Odt) 4 mg PO Q6H PRN PRN PRN Reason: NAUSEA Pramipexole Dihydrochloride (Mirapex) 0.25 mg PO Q12H PRN PRN PRN Reason: Restless legs Last Admin: 06/13/17 22:26 Dose: 0.25 mg Quetiapine Fumarate (Seroquel) 25 mg PO Q6H PRN PRN PRN Reason: Moderate Anxiety (score 2/3) Last Admin: 06/13/17 23:49 Dose: 25 mg Senna (Senokot) 1 tablet PO QHS PRN PRN Reason: Constipation Thiamine HCl (Vitamin B1) [facility] Last Admin: 06/14/17 08:27 Dose: 100 mg Trazodone HCl (Desyrel) 50 mg PO QHS [facility] Last Admin: 06/13/17 21:25 Dose: 50 mg Assessment/Plan Active and Suspected Problems Alcohol dependency (Acute) Alcohol withdrawal (Acute) History of prostate cancer (Acute) 1. Alcohol withdrawal * Complaining of tremors. CIWA score today is 5. * He has remained tachycardic which resolved with administration of Cardizem. He does have a history of sinus tachycardia and is on Cardizem for that. However blood pressure has been down in the 90s. Will keep on Cardizem and hold lisinopril. * On alcohol withdrawal protocol per [facility] protoco * * 2. History of sinus tachycardia * as documented above. Heart rate went up to the 130s yesterday but came down to the 90s with initiation of Cardizem. * currently improving. Will continue cardizem * 3. History of prostate cancer: Stable. 4. Chronic back pain: Is prescribed oxycodone by his PCP. Currently on opiate withdrawal protocol as well. 5. Nicotine dependence: On nicotine patch 6. Attention: On lisinopril and Cardizem. Lisinopril currently on hold due to hypotension. 7. DVT Prophylaxis: Encourage ambulation. Heparin 8. GI prophylaxis:famotidine This note was generated with [employer] dictation software. It may contain incorrect words, spelling, and punctuation that were not noted in checking the note before signing. Code Visit Inpatient E&M: 95751 Subs Hosp L3
[2017-06-14] MEDS: dilTIAZem CD 240 MG Capsule PO (12:21)
[2017-06-14] MEDS: 0.9% Normal Saline 1,000 ML 125 ML IV (18:23)
[2017-06-14] MEDS: traZODone 50 MG Tablet PO (21:24)
[2017-06-15] VITALS (12 sets, daily range): BP systolic 94–153; BP diastolic 53–76; PULSE 87–103; RESP 14–18; TEMP 36.4–37.7; O2SAT 94–96
[2017-06-15] MEDS: LORazepam 1 MG Tablet PO ×4 (00:49→22:42)
[2017-06-15] MEDS: Buprenorphine HCl 2 MG TAB.SUBL SL ×3 (02:06→22:42)
[2017-06-15] MEDS: cloNIDine HCl 0.1 MG Tablet PO ×6 (02:11→22:41)
[2017-06-15] MEDS: 0.9% Normal Saline 1,000 ML 125 ML IV ×3 (02:25→17:28)
[2017-06-15 06:43] LABS: Absolute Lymphocyte Count 0.84 X10^3/ul (0.83-4.51); Absolute Neutrophil Count 2.3 X10^3/uL (2.0-7.7); Basophil% 2.7 % (0-1); Eosinophil# 0.14 X10^3/uL; Eosinophils% 3.8 % (0-5); Hematocrit 36.1 % (40-54); Hemoglobin 11.6 g/dl (13.0-16.5); Lymphocyte # 0.84 X10^3/ul (4.0); Lymphocyte % 22.6 % (19-41); Mean Corp Hgb Conc 32.1 g/gl (32-36); Mean Corpuscular Hgb 30.4 pg (27.0-32.0); Mean Corpuscular Volume 94.8 fL (80-94); Mean Platelet Vol. 9.7 fl (6.2-12.0); Monocyte# 0.34 X10^3/uL; Monocyte% 9.1 % (0-10); Neutrophil # 2.28 X10^3/uL (2.7-7.7); Neutrophil % 61.3 % (47-70); Platelet Count 189 K/mm3 (150-450); RBC Distribution Width CV 14.4 % (11.6-14.6); RBC Distribution Width SD 48.9 fl (35.1-43.9); Red Blood Count 3.81 M/mm3 (4.6-6.2); White Blood Count 3.7 K/mm3 (4.4-11.0)
[2017-06-15 06:45] LABS: POSITIVE COUNT NO; POSITIVE DIFFERENTIAL NO; POSITIVE MORPHOLOGY NO
[2017-06-15 07:02] LABS: Anion Gap 6 (5-15); BUN 16 mg/dL (7-18); BUN/Creat Ratio 15.7 RATIO (10-20); Calcium,Total 8.4 mg/dL (8.5-10.1); Chloride 101 mmol/L (98-107); Creatinine, Serum 1.02 mg/dL (0.70-1.30); EST Glomerular Filtration Rate 79 mL/min (>60); Est Glom Filt Rate - Afr Amer 96 mL/min (>60); Estimated Creatinine Clearance 92.05 ml/min; Glucose 96 mg/dL (74-106); Magnesium 2.1 mg/dL (1.6-2.6); Sodium Level 135 mmol/L (136-145)
[2017-06-15] MEDS: Thiamine Hydrochloride 100 MG Tablet PO (08:47)
[2017-06-15] MEDS: Famotidine 20 MG Tablet PO ×2 (08:47→22:41)
[2017-06-15] MEDS: Multivitamins,Ther W-Minerals Tablet 1 TABLET PO (08:47)
[2017-06-15] MEDS: dilTIAZem CD 240 MG Capsule PO (08:48)
[2017-06-15] MEDS: Folic Acid 1 MG Tablet PO (08:48)
[2017-06-15] MEDS: Gabapentin 800 MG Tablet PO ×3 (08:48→16:55)
[2017-06-15] MEDS: Lisinopril 20 MG Tablet PO (08:51)
--- NOTE | 2017-06-15 09:32 | PCM.PN.HOSP ---
Patient Problems: Active and Suspected Problems Alcohol dependency (Acute) Alcohol withdrawal (Acute) History of prostate cancer (Acute) Subjective: Patient seen and examined. He feels well today even though he still complains of tremors. He denies any fever or chills, any shortness of breath, any cough, any lightheadedness or dizziness, any abdominal pain, any diarrhea vomiting. Review of systems otherwise negative. Patient was sitting up in bed eating a healthy breakfast when I saw him. Objective: Patient is a 62-year-old male with a past medical history of severe alcohol abuse and prostate cancer who was admitted because he wanted to detox from alcohol and opiates. He is currently on the [facility] protocol for alcohol withdrawal and opiate withdrawal. He has remained stable. Vitals/I&O's: Vital Signs Temp Pulse Resp BP Pulse Ox 97.6 F L 101 H 18 102/55 L 94 06/15/17 09:00 06/15/17 09:00 06/15/17 09:00 06/15/17 09:00 06/15/17 09:00 Oxygen Flow Rate 2 Oxygen Delivery Method Room Air Weight: 222 lb Body Mass Index (BMI) 27.7 Intake and Output for Last 24 Hours 06/13/17 06/14/17 06/15/17 23:59 23:59 23:59 Intake Total 600 / 600 550 / 550 1896 / 189 Balance 600 / 600 550 / 550 1896 / 1896 General: Alert, Oriented x3, Cooperative HEENT: Atraumatic, PERRLA, EOMI, Normocephalic Oral: Moist Mucosa Neck: Supple, No JVD, Negative Carotid Bruits Lungs: Clear to auscultation, Normal air movement, No rhonchi, No wheeze, No rales Cardiovascular: Regular Rhythm, Normal S1, Normal S2, No murmurs, Tachycardic - Heart rate is around 101 Abdomen: Bowel Sounds Present, Soft, Non Tender Extremities: No clubbing, No cyanosis, No edema, Capillary Refill Less than 3 Seconds Skin: No rashes, No breakdown Musculoskeletal: No Tenderness to Palpation of Joints or Extremities Lymphatic: No Cervical, Supraclavicular, or Inguinal Adenopathy Neurological: Cranial nerves II-XII grossly intact, - - Has very minimal tremors of upper extremities. Psych/Mental Status: Normal Affect, Appropriate, Alert and oriented to time, place, person, mood and affect Laboratory Results 06/15/17 06:25: WBC 3.7 L, RBC 3.81 L, Hgb 11.6 L, Hct 36.1 L, MCV 94.8 H, MCH 30.4, MCHC 32.1, RDW 14.4, RDW Differential 48.9 H, Plt Count 189, MPV 9.7, Immature Gran % (Auto) 0.500, Neut % (Auto) 61.3, Lymph % (Auto) 22.6, [place] % (Auto) 9.1, Eos % (Auto) 3.8, Baso % (Auto) 2.7 H, Absolute Neuts (auto) 2.3, Absolute Lymphs (auto) 0.84, Total Counted Not Reportable 06/15/17 06:25: Sodium 135 L, Potassium 4.0, Chloride 101, Carbon Dioxide 28.0, Anion Gap 6, BUN 16, Creatinine 1.02, Estim Creat Clear Calc 92.05, Est GFR (MDRD) Af Amer 96, Est GFR (MDRD) Non-Af 79, BUN/Creatinine Ratio 15.7, Glucose 96, Calcium 8.4 L, Magnesium 2.1 Current Medications Acetaminophen (Tylenol) 500 mg PO Q4H PRN PRN PRN Reason: Temp > 100.4 F Al Hydroxide/Mg Hydroxide (Mylanta Ii) 30 ml PO Q6H PRN PRN PRN Reason: dyspesia Bisacodyl (Dulcolax) 10 mg RECTAL DAILY PRN PRN Reason: Constipation Buprenorphine HCl (Buprenorphine Hcl) 2 mg SL Q8H [facility] PRN Reason: Taper Stop: 06/16/17 21:59 Last Admin: 06/15/17 08:57 Dose: 2 mg Clonidine (Catapres) 0.1 mg PO Q4 [facility] Last Admin: 06/15/17 08:49 Dose: 0.1 mg Dicyclomine HCl (Bentyl) 20 mg PO Q6H PRN PRN PRN Reason: abdominal discomfort Last Admin: 06/13/17 23:49 Dose: 20 mg Diltiazem HCl (Cardizem Cd) 240 mg PO DAILY [facility] Last Admin: 06/15/17 08:48 Dose: 240 mg Famotidine (Pepcid) 20 mg PO BID [facility] Last Admin: 06/15/17 08:47 Dose: 20 mg Folic Acid (Folic Acid) 1 mg PO DAILY@0800 [facility] Last Admin: 06/15/17 08:48 Dose: 1 mg Gabapentin (Neurontin) 800 mg PO TIDCM [facility] Last Admin: 06/15/17 08:48 Dose: 800 mg Heparin Sodium (Porcine) (Heparin Na) 5,000 unit SC Q8 [facility] Last Admin: 06/15/17 05:53 Dose: 5,000 units Hydroxyzine Pamoate (Vistaril) 50 mg PO Q6H PRN PRN PRN Reason: Mild Anxiety (score 1/3) Last Admin: 06/13/17 21:30 Dose: 50 mg Sodium Chloride () 1,000 mls @ 125 mls/hr IV .Q8H [facility] Last Admin: 06/15/17 09:01 Dose: 125 mls/hr Ibuprofen (Motrin) 600 mg PO Q8H PRN PRN PRN Reason: Mild-Moderate Pain (1-5/10) Lisinopril (Zestril) 20 mg PO DAILY [facility] Last Admin: 06/15/17 08:51 Dose: 20 mg Loperamide HCl (Imodium) 2 - 4 mg PO UD PRN PRN Reason: LOOSE STOOLS Lorazepam (Ativan) 1 mg PO Q6H [facility] PRN Reason: Taper Stop: 06/16/17 20:44 Last Admin: 06/15/17 06:52 Dose: 1 mg Magnesium Hydroxide (Milk Of Magnesia) 30 ml PO DAILY PRN PRN PRN Reason: Constipation Methocarbamol (Methocarbamol) 750 mg PO Q6H PRN PRN PRN Reason: Muscle Aches Last Admin: 06/13/17 23:49 Dose: 750 mg Multivitamins/Minerals ([facility]ivitamin With Minerals) [facility] Last Admin: 06/15/17 08:47 Dose: 1 tablet Nicotine (Nicoderm Cq (Pbkc)) 21 mg TRANSDERM. DAILY [facility] Last Admin: 06/15/17 08:49 Dose: 21 mg Ondansetron HCl (Zofran Odt) 4 mg PO Q6H PRN PRN PRN Reason: NAUSEA Pramipexole Dihydrochloride (Mirapex) 0.25 mg PO Q12H PRN PRN PRN Reason: Restless legs Last Admin: 06/13/17 22:26 Dose: 0.25 mg Quetiapine Fumarate (Seroquel) 25 mg PO Q6H PRN PRN PRN Reason: Moderate Anxiety (score 2/3) Last Admin: 06/13/17 23:49 Dose: 25 mg Senna (Senokot) 1 tablet PO QHS PRN PRN Reason: Constipation Sodium Chloride () 5 - 30 ml IV UD PRN PRN Reason: SALINE FLUSH Thiamine HCl ([facility]itamin B1) [facility] Last Admin: 06/15/17 08:47 Dose: 100 mg Trazodone HCl (Desyrel) 50 mg PO QHS [facility] Last Admin: 06/14/17 21:24 Dose: 50 mg Assessment/Plan Active and Suspected Problems Alcohol dependency (Acute) Alcohol withdrawal (Acute) History of prostate cancer (Acute) 1. Alcohol withdrawal Still complaining of tremors. CIWA score today is 7 Still remains mildly tachycardic with heart rate around 101 this morning. Cardizem for tachycardia. On alcohol withdrawal protocol with Ativan per [facility] protocol. Today Is day 3 of admission. 2. History of sinus tachycardia as documented above. HR is improving. Is 101 this morning on Cardizem; will continue 3. History of prostate cancer: Stable. 4. Chronic back pain: Is prescribed oxycodone by his PCP. Currently on opiate withdrawal protocol as well. 5. Nicotine dependence: On nicotine patch 6. Hypertension: On lisinopril and Cardizem. Lisinopril currently on hold due to hypotension. BP this morning is 102/55; will continue holding lisinopril 7. Macrocytic anemia Hb is 11.6, with MCV of ~ 95; this is most likely due to alcohol will monitor; encouraged to stop drinking will check vitamin B12 and folate levels as well 8. Hyponatremia Na today is 135; on IVF. WIll monitor 9. DVT Prophylaxis: Encourage ambulation. Heparin sc 10. GI prophylaxis:famotidine This note was generated with [employer] dictation software. It may contain incorrect words, spelling, and punctuation that were not noted in checking the note before signing. Code Visit Inpatient E&M: 84667 Subs Hosp L3
--- NOTE | 2017-06-15 09:37 | PN_ITS ---
Patient Problems: Active and Suspected Problems Alcohol dependency (Acute) Alcohol withdrawal (Acute) History of prostate cancer (Acute) Subjective: Patient seen and examined. He feels well today even though he still complains of tremors. He denies any fever or chills, any shortness of breath, any cough, any lightheadedness or dizziness, any abdominal pain, any diarrhea vomiting. Review of systems otherwise negative. Patient was sitting up in bed eating a healthy breakfast when I saw him. Objective: Patient is a 62-year-old male with a past medical history of severe alcohol abuse and prostate cancer who was admitted because he wanted to detox from alcohol and opiates. He is currently on the [facility] protocol for alcohol withdrawal and opiate withdrawal. He has remained stable. Vitals/I&O's: Vital Signs Temp Pulse Resp BP Pulse Ox 97.6 F L 101 H 18 102/55 L 94 06/15/17 09:00 06/15/17 09:00 06/15/17 09:00 06/15/17 09:00 06/15/17 09:00 Oxygen Flow Rate 2 Oxygen Delivery Method Room Air Weight: 222 lb Body Mass Index (BMI) 27.7 Intake and Output for Last 24 Hours 06/13/17 06/14/17 06/15/17 23:59 23:59 23:59 Intake Total 600 / 600 550 / 550 1896 / 189 Balance 600 / 600 550 / 550 1896 / 1896 General: Alert, Oriented x3, Cooperative HEENT: Atraumatic, PERRLA, EOMI, Normocephalic Oral: Moist Mucosa Neck: Supple, No JVD, Negative Carotid Bruits Lungs: Clear to auscultation, Normal air movement, No rhonchi, No wheeze, No rales Cardiovascular: Regular Rhythm, Normal S1, Normal S2, No murmurs, Tachycardic - Heart rate is around 101 Abdomen: Bowel Sounds Present, Soft, Non Tender Extremities: No clubbing, No cyanosis, No edema, Capillary Refill Less than 3 Seconds Skin: No rashes, No breakdown Musculoskeletal: No Tenderness to Palpation of Joints or Extremities Lymphatic: No Cervical, Supraclavicular, or Inguinal Adenopathy Neurological: Cranial nerves II-XII grossly intact, - - Has very minimal tremors of upper extremities. Psych/Mental Status: Normal Affect, Appropriate, Alert and oriented to time, place, person, mood and affect Laboratory Results 06/15/17 06:25: WBC 3.7 L, RBC 3.81 L, Hgb 11.6 L, Hct 36.1 L, MCV 94.8 H, MCH 30.4, MCHC 32.1, RDW 14.4, RDW Differential 48.9 H, Plt Count 189, MPV 9.7, Immature Gran % (Auto) 0.500, Neut % (Auto) 61.3, Lymph % (Auto) 22.6, [place] % ( Auto) 9.1, Eos % (Auto) 3.8, Baso % (Auto) 2.7 H, Absolute Neuts (auto) 2.3, Absolute Lymphs (auto) 0.84, Total Counted Not Reportable 06/15/17 06:25: Sodium 135 L, Potassium 4.0, Chloride 101, Carbon Dioxide 28.0, Anion Gap 6, BUN 16, Creatinine 1.02, Estim Creat Clear Calc 92.05, Est GFR ( MDRD) Af Amer 96, Est GFR (MDRD) Non-Af 79, BUN/Creatinine Ratio 15.7, Glucose 96, Calcium 8.4 L, Magnesium 2.1 Current Medications Acetaminophen (Tylenol) 500 mg PO Q4H PRN PRN PRN Reason: Temp > 100.4 F Al Hydroxide/Mg Hydroxide (Mylanta Ii) 30 ml PO Q6H PRN PRN PRN Reason: dyspesia Bisacodyl (Dulcolax) 10 mg RECTAL DAILY PRN PRN Reason: Constipation Buprenorphine HCl (Buprenorphine Hcl) 2 mg SL Q8H [facility] PRN Reason: Taper Stop: 06/16/17 21:59 Last Admin: 06/15/17 08:57 Dose: 2 mg Clonidine (Catapres) 0.1 mg PO Q4 [facility] Last Admin: 06/15/17 08:49 Dose: 0.1 mg Dicyclomine HCl (Bentyl) 20 mg PO Q6H PRN PRN PRN Reason: abdominal discomfort Last Admin: 06/13/17 23:49 Dose: 20 mg Diltiazem HCl (Cardizem Cd) 240 mg PO DAILY [facility] Last Admin: 06/15/17 08:48 Dose: 240 mg Famotidine (Pepcid) 20 mg PO BID [facility] Last Admin: 06/15/17 08:47 Dose: 20 mg Folic Acid (Folic Acid) 1 mg PO DAILY@0800 [facility] Last Admin: 06/15/17 08:48 Dose: 1 mg Gabapentin (Neurontin) 800 mg PO TIDCM [facility] Last Admin: 06/15/17 08:48 Dose: 800 mg Heparin Sodium (Porcine) (Heparin Na) 5,000 unit SC Q8 [facility] Last Admin: 06/15/17 05:53 Dose: 5,000 units Hydroxyzine Pamoate (Vistaril) 50 mg PO Q6H PRN PRN PRN Reason: Mild Anxiety (score 1/3) Last Admin: 06/13/17 21:30 Dose: 50 mg Sodium Chloride () 1,000 mls @ 125 mls/hr IV .Q8H [facility] Last Admin: 06/15/17 09:01 Dose: 125 mls/hr Ibuprofen (Motrin) 600 mg PO Q8H PRN PRN PRN Reason: Mild-Moderate Pain (1-5/10) Lisinopril (Zestril) 20 mg PO DAILY [facility] Last Admin: 06/15/17 08:51 Dose: 20 mg Loperamide HCl (Imodium) 2 - 4 mg PO UD PRN PRN Reason: LOOSE STOOLS Lorazepam (Ativan) 1 mg PO Q6H [facility] PRN Reason: Taper Stop: 06/16/17 20:44 Last Admin: 06/15/17 06:52 Dose: 1 mg Magnesium Hydroxide (Milk Of Magnesia) 30 ml PO DAILY PRN PRN PRN Reason: Constipation Methocarbamol (Methocarbamol) 750 mg PO Q6H PRN PRN PRN Reason: Muscle Aches Last Admin: 06/13/17 23:49 Dose: 750 mg Multivitamins/Minerals (Multivitamin With Minerals) [facility] Last Admin: 06/15/17 08:47 Dose: 1 tablet Nicotine (Nicoderm Cq (Pbkc)) 21 mg TRANSDERM. DAILY [facility] Last Admin: 06/15/17 08:49 Dose: 21 mg Ondansetron HCl (Zofran Odt) 4 mg PO Q6H PRN PRN PRN Reason: NAUSEA Pramipexole Dihydrochloride (Mirapex) 0.25 mg PO Q12H PRN PRN PRN Reason: Restless legs Last Admin: 06/13/17 22:26 Dose: 0.25 mg Quetiapine Fumarate (Seroquel) 25 mg PO Q6H PRN PRN PRN Reason: Moderate Anxiety (score 2/3) Last Admin: 06/13/17 23:49 Dose: 25 mg Senna (Senokot) 1 tablet PO QHS PRN PRN Reason: Constipation Sodium Chloride () 5 - 30 ml IV UD PRN PRN Reason: SALINE FLUSH Thiamine HCl (Vitamin B1) [facility] Last Admin: 06/15/17 08:47 Dose: 100 mg Trazodone HCl (Desyrel) 50 mg PO QHS [facility] Last Admin: 06/14/17 21:24 Dose: 50 mg Assessment/Plan Active and Suspected Problems Alcohol dependency (Acute) Alcohol withdrawal (Acute) History of prostate cancer (Acute) 1. Alcohol withdrawal * Still complaining of tremors. CIWA score today is 7 * Still remains mildly tachycardic with heart rate around 101 this morning. Cardizem for tachycardia. * On alcohol withdrawal protocol with Ativan per [facility] protocol. * Today Is day 3 of admission. * * 2. History of sinus tachycardia * as documented above. HR is improving. Is 101 this morning * on Cardizem; will continue * 3. History of prostate cancer: Stable. 4. Chronic back pain: Is prescribed oxycodone by his PCP. Currently on opiate withdrawal protocol as well. 5. Nicotine dependence: On nicotine patch 6. Hypertension: On lisinopril and Cardizem. Lisinopril currently on hold due to hypotension. BP this morning is 102/55; will continue holding lisinopril 7. Macrocytic anemia * Hb is 11.6, with MCV of ~ 95; this is most likely due to alcohol * will monitor; encouraged to stop drinking * will check vitamin B12 and folate levels as well * 8. Hyponatremia * Na today is 135; on IVF. WIll monitor * 9. DVT Prophylaxis: Encourage ambulation. Heparin sc 10. GI prophylaxis:famotidine This note was generated with [employer] software. It may contain incorrect words, spelling, and punctuation that were not noted in checking the note before signing. Code Visit Inpatient E&M: 55012 [facility] Hosp L3
[2017-06-15] MEDS: QUEtiapine 25 MG Tablet PO (18:28)
[2017-06-15] MEDS: traZODone 50 MG Tablet PO (22:41)
[2017-06-16] MEDS: 0.9% Normal Saline 1,000 ML 125 ML IV (01:29)
[2017-06-16 02:23] VITALS: BP 135/76; PULSE 94; RESP 16; TEMP 37; O2SAT 93
[2017-06-16] MEDS: cloNIDine HCl 0.1 MG Tablet PO ×6 (02:33→21:27)
[2017-06-16] MEDS: LORazepam 1 MG Tablet PO ×3 (03:45→20:49)
[2017-06-16 07:00] LABS: Anion Gap 7 (5-15); BUN 8 mg/dL (7-18); BUN/Creat Ratio 12.8 RATIO (10-20); Calcium,Total 8.2 mg/dL (8.5-10.1); Chloride 104 mmol/L (98-107); Creatinine, Serum 0.63 mg/dL (0.70-1.30); EST Glomerular Filtration Rate 139 mL/min (>60); Est Glom Filt Rate - Afr Amer 168 mL/min (>60); Estimated Creatinine Clearance 149.03 ml/min; Glucose 132 mg/dL (74-106); Magnesium 1.6 mg/dL (1.6-2.6); Potassium 4.2 mmol/L (3.5-5.1); Sodium Level 136 mmol/L (136-145)
[2017-06-16] MEDS: Gabapentin 800 MG Tablet PO ×3 (08:30→17:08)
[2017-06-16] MEDS: Folic Acid 1 MG Tablet PO (08:30)
[2017-06-16] MEDS: Multivitamins,Ther W-Minerals Tablet 1 TABLET PO (08:30)
[2017-06-16] MEDS: Thiamine Hydrochloride 100 MG Tablet PO (08:30)
[2017-06-16 10:00] VITALS: BP 147/80; PULSE 101; RESP 18; TEMP 37.1
[2017-06-16] MEDS: Buprenorphine HCl 2 MG TAB.SUBL SL (10:13)
[2017-06-16] MEDS: Famotidine 20 MG Tablet PO ×2 (10:15→21:28)
--- NOTE | 2017-06-16 10:39 | PCM.PN.HOSP ---
Patient Problems: Active and Suspected Problems Alcohol dependency (Acute) Alcohol withdrawal (Acute) History of prostate cancer (Acute) Subjective: CC: f/u alcohol WD he still reports significant tremors, dizziness and unstable gait and does not feel he is ready to go home. Vitals/I&O's: Vital Signs Temp Pulse Resp BP Pulse Ox 98.7 F 96 18 127/73 H 97 06/17/17 08:13 06/17/17 08:13 06/17/17 08:22 06/17/17 08:13 06/17/17 08:13 Oxygen Flow Rate 2 Oxygen Delivery Method Room Air Weight: 100.698 kg Body Mass Index (BMI) 27.7 Intake and Output for Last 24 Hours 06/15/17 06/16/17 06/17/17 23:59 23:59 23:59 Intake Total 3100 / 3100 3219 / 3219 Balance 3100 / 3100 3219 / 3219 General: Alert, Oriented x3 HEENT: Atraumatic Oral: Moist Mucosa Neck: Supple, No JVD Lungs: Clear to auscultation Cardiovascular: Normal S1, Normal S2 Abdomen: Bowel Sounds Present, Soft, Non Tender Current Medications Acetaminophen (Tylenol) 500 mg PO Q4H PRN PRN PRN Reason: Temp > 100.4 F Al Hydroxide/Mg Hydroxide (Mylanta Ii) 30 ml PO Q6H PRN PRN PRN Reason: dyspesia Bisacodyl (Dulcolax) 10 mg RECTAL DAILY PRN PRN Reason: Constipation Clonidine (Catapres) 0.1 mg PO Q4 [facility] Last Admin: 06/17/17 08:14 Dose: 0.1 mg Dicyclomine HCl (Bentyl) 20 mg PO Q6H PRN PRN PRN Reason: abdominal discomfort Last Admin: 06/13/17 23:49 Dose: 20 mg Diltiazem HCl (Cardizem Cd) 240 mg PO DAILY [facility] Last Admin: 06/17/17 08:15 Dose: 240 mg Famotidine (Pepcid) 20 mg PO BID [facility] Last Admin: 06/17/17 08:16 Dose: 20 mg Folic Acid (Folic Acid) 1 mg PO DAILY@0800 [facility] Last Admin: 06/17/17 08:15 Dose: 1 mg Gabapentin (Neurontin) 800 mg PO TIDCM [facility] Last Admin: 06/17/17 08:15 Dose: 800 mg Heparin Sodium (Porcine) (Heparin Na) 5,000 unit SC Q8 [facility] Last Admin: 06/17/17 05:12 Dose: Not Given Hydroxyzine Pamoate (Vistaril) 50 mg PO Q6H PRN PRN PRN Reason: Mild Anxiety (score 1/3) Last Admin: 06/16/17 20:49 Dose: 50 mg Ibuprofen (Motrin) 600 mg PO Q8H PRN PRN PRN Reason: Mild-Moderate Pain (1-5/10) Last Admin: 06/16/17 13:16 Dose: 600 mg Lisinopril (Zestril) 20 mg PO DAILY [facility] Last Admin: 06/15/17 08:51 Dose: 20 mg Loperamide HCl (Imodium) 2 - 4 mg PO UD PRN PRN Reason: LOOSE STOOLS Lorazepam (Ativan) 1 mg PO Q4H PRN PRN PRN Reason: Alcohol Withdrawal Last Admin: 06/17/17 09:47 Dose: 1 mg Magnesium Hydroxide (Milk Of Magnesia) 30 ml PO DAILY PRN PRN PRN Reason: Constipation Methocarbamol (Methocarbamol) 750 mg PO Q6H PRN PRN PRN Reason: Muscle Aches Last Admin: 06/13/17 23:49 Dose: 750 mg Multivitamins/Minerals (Multivitamin With Minerals) [facility] Last Admin: 06/17/17 08:15 Dose: 1 tablet Nicotine (Nicoderm Cq (Pbkc)) 21 mg TRANSDERM. DAILY [facility] Last Admin: 06/17/17 08:16 Dose: 21 mg Ondansetron HCl (Zofran Odt) 4 mg PO Q6H PRN PRN PRN Reason: NAUSEA Pramipexole Dihydrochloride (Mirapex) 0.25 mg PO Q12H PRN PRN PRN Reason: Restless legs Last Admin: 06/13/17 22:26 Dose: 0.25 mg Quetiapine Fumarate (Seroquel) 25 mg PO Q6H PRN PRN PRN Reason: Moderate Anxiety (score 2/3) Last Admin: 06/16/17 23:43 Dose: 25 mg Senna (Senokot) 1 tablet PO QHS PRN PRN Reason: Constipation Sodium Chloride () 5 - 30 ml IV UD PRN PRN Reason: SALINE FLUSH Thiamine HCl (Vitamin B1) 100 mg PO DAILYCM [facility] Last Admin: 06/17/17 08:15 Dose: 100 mg Trazodone HCl (Desyrel) 50 mg PO QHS [facility] Last Admin: 06/16/17 21:28 Dose: 50 mg Assessment/Plan Active and Suspected Problems Alcohol dependency (Acute) Alcohol withdrawal (Acute) History of prostate cancer (Acute) 1. Alcohol withdrawal; will continue medical stabilization protocol. 2. Nicotine dependence; on nicotine patch, recommended to quit. 3. History of prostate cancer; Stable. 4. Chronic back pain; his pain is controlled. 5. Disposition; will aim for discharge in AM This is for service date 06/15/2016 Code Visit Inpatient E&M: 88733 Subs Hosp L2
[2017-06-16] MEDS: dilTIAZem CD 240 MG Capsule PO (10:59)
[2017-06-16] MEDS: Ibuprofen 600 MG Tablet PO (13:16)
[2017-06-16 14:00] VITALS: BP 138/76; PULSE 91; RESP 18; TEMP 36.9
[2017-06-16] MEDS: QUEtiapine 25 MG Tablet PO ×2 (14:29→23:43)
[2017-06-16 18:00] VITALS: BP 121/67; PULSE 87; RESP 18; TEMP 36.5
[2017-06-16 20:42] VITALS: BP 126/79; PULSE 92; RESP 16; TEMP 36.4
[2017-06-16 20:45] VITALS: BP 126/79; PULSE 92; RESP 16; TEMP 36.4; O2SAT 94
[2017-06-16] MEDS: traZODone 50 MG Tablet PO (21:28)
[2017-06-17] MEDS: LORazepam 1 MG Tablet PO ×3 (00:53→09:47)
[2017-06-17 01:00] VITALS: BP 155/100; PULSE 96; RESP 16; TEMP 36.9; O2SAT 94
[2017-06-17] MEDS: cloNIDine HCl 0.1 MG Tablet PO ×3 (01:01→08:14)
[2017-06-17 05:09] VITALS: BP 147/84; PULSE 90; RESP 18; TEMP 37.2; O2SAT 97
[2017-06-17 05:17] VITALS: BP 147/84; PULSE 90; RESP 18; TEMP 37.2
[2017-06-17 08:13] VITALS: BP 127/73; PULSE 96; RESP 18; TEMP 37.1; O2SAT 97
[2017-06-17] MEDS: Thiamine Hydrochloride 100 MG Tablet PO (08:15)
[2017-06-17] MEDS: Multivitamins,Ther W-Minerals Tablet 1 TABLET PO (08:15)
[2017-06-17] MEDS: dilTIAZem CD 240 MG Capsule PO (08:15)
[2017-06-17] MEDS: Gabapentin 800 MG Tablet PO (08:15)
[2017-06-17] MEDS: Folic Acid 1 MG Tablet PO (08:15)
[2017-06-17] MEDS: Famotidine 20 MG Tablet PO (08:16)
[2017-06-17 08:22] VITALS: RESP 18
--- NOTE | 2017-06-17 10:41 | PN_ITS ---
Patient Problems: Active and Suspected Problems Alcohol dependency (Acute) Alcohol withdrawal (Acute) History of prostate cancer (Acute) Subjective: CC: f/u alcohol WD he still reports significant tremors, dizziness and unstable gait and does not feel he is ready to go home. Vitals/I&O's: Vital Signs Temp Pulse Resp BP Pulse Ox 98.7 F 96 18 127/73 H 97 06/17/17 08:13 06/17/17 08:13 06/17/17 08:22 06/17/17 08:13 06/17/17 08:13 Oxygen Flow Rate 2 Oxygen Delivery Method Room Air Weight: 100.698 kg Body Mass Index (BMI) 27.7 Intake and Output for Last 24 Hours 06/15/17 06/16/17 06/17/17 23:59 23:59 23:59 Intake Total 3100 / 3100 3219 / 3219 Balance 3100 / 3100 3219 / 3219 General: Alert, Oriented x3 HEENT: Atraumatic Oral: Moist Mucosa Neck: Supple, No JVD Lungs: Clear to auscultation Cardiovascular: Normal S1, Normal S2 Abdomen: Bowel Sounds Present, Soft, Non Tender Current Medications Acetaminophen (Tylenol) 500 mg PO Q4H PRN PRN PRN Reason: Temp > 100.4 F Al Hydroxide/Mg Hydroxide (Mylanta Ii) 30 ml PO Q6H PRN PRN PRN Reason: dyspesia Bisacodyl (Dulcolax) 10 mg RECTAL DAILY PRN PRN Reason: Constipation Clonidine (Catapres) 0.1 mg PO Q4 [facility] Last Admin: 06/17/17 08:14 Dose: 0.1 mg Dicyclomine HCl (Bentyl) 20 mg PO Q6H PRN PRN PRN Reason: abdominal discomfort Last Admin: 06/13/17 23:49 Dose: 20 mg Diltiazem HCl (Cardizem Cd) 240 mg PO DAILY [facility] Last Admin: 06/17/17 08:15 Dose: 240 mg Famotidine (Pepcid) 20 mg PO BID [facility] Last Admin: 06/17/17 08:16 Dose: 20 mg Folic Acid (Folic Acid) 1 mg PO DAILY@0800 [facility] Last Admin: 06/17/17 08:15 Dose: 1 mg Gabapentin (Neurontin) 800 mg PO TIDCM [facility] Last Admin: 06/17/17 08:15 Dose: 800 mg Heparin Sodium (Porcine) (Heparin Na) 5,000 unit SC Q8 [facility] Last Admin: 06/17/17 05:12 Dose: Not Given Hydroxyzine Pamoate (Vistaril) 50 mg PO Q6H PRN PRN PRN Reason: Mild Anxiety (score 1/3) Last Admin: 06/16/17 20:49 Dose: 50 mg Ibuprofen (Motrin) 600 mg PO Q8H PRN PRN PRN Reason: Mild-Moderate Pain (1-5/10) Last Admin: 06/16/17 13:16 Dose: 600 mg Lisinopril (Zestril) 20 mg PO DAILY [facility] Last Admin: 06/15/17 08:51 Dose: 20 mg Loperamide HCl (Imodium) 2 - 4 mg PO UD PRN PRN Reason: LOOSE STOOLS Lorazepam (Ativan) 1 mg PO Q4H PRN PRN PRN Reason: Alcohol Withdrawal Last Admin: 06/17/17 09:47 Dose: 1 mg Magnesium Hydroxide (Milk Of Magnesia) 30 ml PO DAILY PRN PRN PRN Reason: Constipation Methocarbamol (Methocarbamol) 750 mg PO Q6H PRN PRN PRN Reason: Muscle Aches Last Admin: 06/13/17 23:49 Dose: 750 mg Multivitamins/Minerals ([facility]ivitamin With Minerals) [facility] Last Admin: 06/17/17 08:15 Dose: 1 tablet Nicotine (Nicoderm Cq (Pbkc)) 21 mg TRANSDERM. DAILY [facility] Last Admin: 06/17/17 08:16 Dose: 21 mg Ondansetron HCl (Zofran Odt) 4 mg PO Q6H PRN PRN PRN Reason: NAUSEA Pramipexole Dihydrochloride (Mirapex) 0.25 mg PO Q12H PRN PRN PRN Reason: Restless legs Last Admin: 06/13/17 22:26 Dose: 0.25 mg Quetiapine Fumarate (Seroquel) 25 mg PO Q6H PRN PRN PRN Reason: Moderate Anxiety (score 2/3) Last Admin: 06/16/17 23:43 Dose: 25 mg Senna (Senokot) 1 tablet PO QHS PRN PRN Reason: Constipation Sodium Chloride () 5 - 30 ml IV UD PRN PRN Reason: SALINE FLUSH Thiamine HCl (Vitamin B1) 100 mg PO DAILYCM [facility] Last Admin: 06/17/17 08:15 Dose: 100 mg Trazodone HCl (Desyrel) 50 mg PO QHS [facility] Last Admin: 06/16/17 21:28 Dose: 50 mg Assessment/Plan Active and Suspected Problems Alcohol dependency (Acute) Alcohol withdrawal (Acute) History of prostate cancer (Acute) 1. Alcohol withdrawal; will continue medical stabilization protocol. 2. Nicotine dependence; on nicotine patch, recommended to quit. 3. History of prostate cancer; Stable. 4. Chronic back pain; his pain is controlled. 5. Disposition; will aim for discharge in AM This is for service date 06/15/2016 Code Visit Inpatient E&M: 16750 Subs Hosp L2
--- NOTE | 2017-06-17 10:57 | PCM.DC ---
- Discharge Diagnoses Current Active Problems: Current Active and Chronic Problems Alcohol dependency (Acute) Urinary incontinence with continuous leakage (Chronic) Chronic back pain (Chronic) Alcohol withdrawal (Acute) History of prostate cancer (Acute) You will use the following diet at home:: Regular Discharge Activity: Return to Normal Activity Allergies/Adverse Reactions: Allergies ciprofloxacin [From Cipro] Allergy (Verified 06/13/17 16:27) Other PT STATES MAKES ME FALL DOWN Medications to take at Discharge Diltiazem HCl [Diltiazem 24Hr Cd] 240 mg PO DAILY 06/12/17 Lisinopril [Lisinopril] 20 mg PO DAILY 06/12/17 Oxycodone HCl/Acetaminophen [Oxycodone-Acetaminophen 10-325] 1 tab PO TID PRN 06/12/17 Gabapentin [Neurontin] 800 mg PO TIDCM 06/13/17 Primary Care Physician: Care Physician,No Primary [Primary Care Provider] - Within 1 Week Proposed Discharge Date: 06/17/17
--- NOTE | 2017-06-17 10:59 | PCM.DC.SUM ---
Discharge Date and Diagnosis Date of Admission: 06/13/17 Date of Discharge: 06/17/17 - Primary Discharge Diagnosis Active and Suspected Problems Alcohol dependency (Acute) Alcohol withdrawal (Acute) History of prostate cancer (Acute) - Secondary Discharge Diagnosis Chronic Problems Urinary incontinence with continuous leakage (Chronic) Chronic back pain (Chronic) Hospital Course and Treatment Summary of Care Provided: This is a 62 years old male with history of alcohol dependency who presented with symptom Complex of alcohol withdrawal after he had quit drinking. She was diagnosed with acute alcohol withdrawal and admitted to the hospital, based on the alcohol withdrawal protocol for medical stabilization. His symptoms did improve with his stay in the hospital and at this point the patient denies any tremors or any obvious symptoms noted with. He was discharged in a stable condition and recommended to follow-up for outpatient alcohol rehabilitation program. Discharge Diet: No Restrictions Discharge Activity: Return to Normal Activity Home Medications: Medications to take at Discharge Diltiazem HCl [Diltiazem 24Hr Cd] 240 mg PO DAILY 06/12/17 Lisinopril [Lisinopril] 20 mg PO DAILY 06/12/17 Oxycodone HCl/Acetaminophen [Oxycodone-Acetaminophen 10-325] 1 tab PO TID PRN 06/12/17 Gabapentin [Neurontin] 800 mg PO TIDCM 06/13/17 Primary Care Physician: Care Physician,No Primary [Primary Care Provider] - Within 1 Week Disposition: Home Meaningful Use Info Meaningful Use Diagnoses (Choose all that apply): None applicable Code Visit Inpatient E&M: 01780 Disch Hosp
== END 2017-06-17 11:55 | disposition home or self-care (01) | DRG 434 ==
PROVIDERS: Student in an Organized Health Care Education/Training Program; Admitting Provider Hospitalist; Visit Provider Internal Medicine
DX: F10.239 Alcohol dependence with withdrawal, unspecified (principal); E87.1 Hypo-osmolality and hyponatremia; F10.229 Alcohol dependence with intoxication, unspecified; S02.2XXA Fracture of nasal bones, initial encounter for closed fracture; D53.9 Nutritional anemia, unspecified; F17.200 Nicotine dependence, unspecified, uncomplicated; R00.0 Tachycardia, unspecified; Z79.891 Long term (current) use of opiate analgesic; Y90.8 Blood alcohol level of 240 mg/100 ml or more; Z85.46 Personal history of malignant neoplasm of prostate; Z23 Encounter for immunization; W10.2XXA Fall (on)(from) incline, initial encounter; Y93.01 Activity, walking, marching and hiking; Z79.899 Other long term (current) drug therapy; S00.31XA Abrasion of nose, initial encounter; G89.29 Other chronic pain; M54.9 Dorsalgia, unspecified; I10 Essential (primary) hypertension; S00.81XA Abrasion of other part of head, initial encounter; R32 Unspecified urinary incontinence
CPT/HCPCS: 36415; 70450; 80048; 80053; 80076; 80307; 80320; 81001; 83735; 85025; 85610; 85730; 90715; 93005; 96360; 96361; 99285; J7030; 90686; G0480

== ENCOUNTER 2017-08-18 11:26 | Inpatient (IN) | payer MEDICAID, SELFPAY ==
[2017-08-18] VITALS (10 sets, daily range): BP systolic 142–171; BP diastolic 96–109; PULSE 102–117; RESP 16–20; TEMP 36.7–37.1; O2SAT 96–98; BMI 26.9; BMI 27.1
--- NOTE | 2017-08-18 11:53 | EKG12_ITS ---
Test Reason : Blood Pressure : / mmHG Vent. Rate : 097 BPM Atrial Rate : 097 BPM P-R Int : 174 ms QRS Dur : 092 ms QT Int : 338 ms P-R-T Axes : 051 -20 065 degrees QTc Int : 429 ms Normal sinus rhythm Leftward axis Low voltage QRS (limb leads) Confirmed by DARIEN STRE[address], KYLAH ([id number]), rewrite editor SATNAM MCFARLANE ([id number] on 08/21/2017 1:00:57 PM Referred By: MARELY Confirmed By:KYLAH LEDEZMA MD
--- NOTE | 2017-08-18 11:53 | CT_ITS ---
STUDY: CT BRAIN WITHOUT CONTRAST REASON FOR EXAM: Male, 62 years old. Confusion. RADIATION DOSAGE (If Supplied By Facility): CTDIvol = ( 44.99 ) mGy, DLP = ( 796.11 ) mGycm TECHNIQUE: Transaxial CT imaging of the brain was performed without administration of intravenous contrast material. Individualized dose optimization techniques were used for this CT. COMPARISON: June 12, 2017. FINDINGS: Normal soft tissue structures. Nasal bone fracture is redemonstrated. Normal size ventricles and extra-axial spaces for the patient's age. Normal white matter tracts of the cerebral hemispheres. And seen is a subinsular cyst versus chronic right basal ganglia lacunar infarct. Normal brainstem. Normal cerebellum. There is no intracranial hemorrhage. There is no large vessel territory ischemia/edema. Again seen is opacification with air within the left maxillary sinus. CT/Brain/Head without Contrast IMPRESSION: No CT evident acute intracranial pathology. Nonspecific left maxillary sinus disease. No paranasal sinus air-fluid levels. Electronically Signed: Jevon Alexandra MD at 13:01 EDT , Service support ,
[2017-08-18 12:26] LABS: Absolute Lymphocyte Count 0.61 X10^3/ul (0.83-4.51); Absolute Neutrophil Count 2.9 X10^3/uL (2.0-7.7); Basophil# 0.09 X10^3/uL; Basophil% 2.2 % (0-1); Eosinophil# 0.03 X10^3/uL; Eosinophils% 0.7 % (0-5); Hematocrit 45.6 % (40-54); Hemoglobin 15.4 g/dl (13.0-16.5); Lymphocyte # 0.61 X10^3/ul (4.0); Lymphocyte % 14.6 % (19-41); Mean Corp Hgb Conc 33.8 g/gl (32-36); Mean Corpuscular Hgb 30.6 pg (27.0-32.0); Mean Corpuscular Volume 90.5 fL (80-94); Mean Platelet Vol. 9.9 fl (6.2-12.0); Monocyte# 0.52 X10^3/uL; Monocyte% 12.5 % (0-10); Neutrophil # 2.89 X10^3/uL (2.7-7.7); Neutrophil % 69.3 % (47-70); Platelet Count 181 K/mm3 (150-450); RBC Distribution Width CV 15.2 % (11.6-14.6); Red Blood Count 5.04 M/mm3 (4.6-6.2); White Blood Count 4.2 K/mm3 (4.4-11.0)
[2017-08-18 12:31] LABS: POSITIVE COUNT NO; POSITIVE DIFFERENTIAL NO; POSITIVE MORPHOLOGY NO
[2017-08-18] MEDS: 0.9% Normal Saline 1,000 ML 150 ML IV (12:32)
[2017-08-18 12:44] LABS: AST(SGOT) 158 U/L (15-37); Alanine Aminotransfer ALT/SGPT 158 U/L (16-61); Albumin, Serum 3.8 g/dL (3.2-5.0); Alkaline Phosphatase 122 U/L (45-117); Anion Gap 11 (5-15); BUN 3 mg/dL (7-18); BUN/Creat Ratio 5.3 RATIO (10-20); Calcium,Total 8.7 mg/dL (8.5-10.1); Chloride 102 mmol/L (98-107); Creatinine, Serum 0.56 mg/dL (0.70-1.30); EST Glomerular Filtration Rate 157 mL/min (>60); Est Glom Filt Rate - Afr Amer 190 mL/min (>60); Estimated Creatinine Clearance 167.66 ml/min; Globulin 3.9 g/dL (2.2-4.2); Glucose 88 mg/dL (74-106); Potassium 3.7 mmol/L (3.5-5.1); Protein, Total 7.7 g/dL (6.4-8.2); Sodium Level 136 mmol/L (136-145)
--- NOTE | 2017-08-18 13:23 | ED.RN ---
HOSPITALIST PAGED FOR DR YAP
--- NOTE | 2017-08-18 13:41 | ED.VISSUMM ---
- ER Visit Summary Date of Service: 08/18/17 Chief Complaint: [Confusion] History of Present Illness: The patient is a 62 M [presents to the emergency department with confusion over the last 4-5 weeks. Patient has been at home alone and binge drinking for the last 5 weeks. Passer brings the patient and after speaking with [facility] as patient would like alcohol detox. Patient's informaticist states that he has had several visits to the patient's home with the patient's brother and the patient has no recollection of these visits. Patient's been speaking with his mother on the phone and patient has no recollection of these conversations. Patient's more withdrawn than usual and less verbal than usual per informaticist. Patient denies any headache or recent falls. Patient did have a fall a few months ago. Patient states that he normally drinks beer and his last drink was this morning. Patient denies recent illness. Patient does have a history of urinary incontinence related to states surgery years ago.] Physical Examination: [HEENT-PERRLA, EOMI. Cranial nerves II through XII grossly intact. TMs clear. Mucous membranes moist. No adenopathy. There is a strong smell of urine as I enter the room. Cardiovascular-regular rate and rhythm without murmur or ectopy Lungs-clear to auscultation, chest wall stable without crepitus or subcu emphysema Abdomen-normoactive bowel sounds, soft, nontender, no rebound or rigidity, no peritoneal signs. Neuro imnf-wufzab-koid and heel wood testing within normal limits. Negative Romberg. Patient does have a fine tremor noted. Patient is confused to time but is alert person and place. Extremities-intact ?4, normal range of motion, normal pulses, atraumatic] Test Results: [CT scan of the brain without contrast showed chronic changes otherwise nothing acute. EKG obtained arrival shows sinus rhythm with a ventricular rate 97 bpm. CBC with differential showed a white count of 4.2, hemoglobin 15, hematocrit 46, platelets 181. Chemistries unremarkable. LFTs showed an elevated alk phos 122 ALT was 158 and AST was 158 troponin was less than 0.02 alcohol was 167. Urinalysis ordered and pending] Emergency Department Course and Treatment: [Patient was given normal saline and started on Librium.] Treatment Plan: [Admit for further workup and evaluation of patient's confusion as I suspect likely related to alcohol] Disposition: [Admit ] Impression: [Mental status change/confusion Alcohol intoxication/abuse] This note was generated with [employer] dictation software. It may contain incorrect words, spelling, and punctuation that were not noted in review of the chart prior to signing ED Disposition - Plan for ED Patient: Chief Complaint: General Illness Referrals: Care Physician,No Primary [Primary Care Provider] -
--- NOTE | 2017-08-18 13:46 | ED.DCSUM_ITS ---
- ER Visit Summary Date of Service: 08/18/17 Chief Complaint: [Confusion] History of Present Illness: The patient is a 62 M [presents to the emergency department with confusion over the last 4-5 weeks. Patient has been at home alone and binge drinking for the last 5 weeks. Passer brings the patient and after speaking with [facility] as patient would like alcohol detox. Patient's shotweld operator states that he has had several visits to the patient's home with the patient's brother and the patient has no recollection of these visits. Patient' s been speaking with his mother on the phone and patient has no recollection of these conversations. Patient's more withdrawn than usual and less verbal than usual per shotweld operator. Patient denies any headache or recent falls. Patient did have a fall a few months ago. Patient states that he normally drinks beer and his last drink was this morning. Patient denies recent illness. Patient does have a history of urinary incontinence related to states surgery years ago.] Physical Examination: [HEENT-PERRLA, EOMI. Cranial nerves II through XII grossly intact. TMs clear. Mucous membranes moist. No adenopathy. There is a strong smell of urine as I enter the room. Cardiovascular-regular rate and rhythm without murmur or ectopy Lungs-clear to auscultation, chest wall stable without crepitus or subcu emphysema Abdomen-normoactive bowel sounds, soft, nontender, no rebound or rigidity, no peritoneal signs. Neuro nioe-jjhouq-fsgc and heel wood testing within normal limits. Negative Romberg. Patient does have a fine tremor noted. Patient is confused to time but is alert person and place. Extremities-intact ?4, normal range of motion, normal pulses, atraumatic] Test Results: [CT scan of the brain without contrast showed chronic changes otherwise nothing acute. EKG obtained arrival shows sinus rhythm with a ventricular rate 97 bpm. CBC with differential showed a white count of 4.2, hemoglobin 15, hematocrit 46, platelets 181. Chemistries unremarkable. LFTs showed an elevated alk phos 122 ALT was 158 and AST was 158 troponin was less than 0.02 alcohol was 167. Urinalysis ordered and pending] Emergency Department Course and Treatment: [Patient was given normal saline and started on Librium.] Treatment Plan: [Admit for further workup and evaluation of patient's confusion as I suspect likely related to alcohol] Disposition: [Admit ] Impression: [Mental status change/confusion Alcohol intoxication/abuse] This note was generated with [employer] dictation software. It may contain incorrect words, spelling, and punctuation that were not noted in review of the chart prior to signing ED Disposition - Plan for ED Patient: Chief Complaint: General Illness Referrals: Care Physician,No Primary [Primary Care Provider] -
[2017-08-18] MEDS: chlordiazePOXIDE 25 MG Capsule PO (13:50)
--- NOTE | 2017-08-18 14:12 | PCM.HP.STD ---
Problem List (1) Encephalopathy Status: Acute (2) Chest pain Status: Acute (3) Anxiety Status: Acute (4) Alcohol withdrawal Status: Acute (5) Alcohol dependency Status: Acute Qualifiers: (6) Urinary incontinence with continuous leakage Status: Chronic (7) Chronic back pain Status: Chronic (8) History of prostate cancer Status: Acute History of Present Illness Date of Admission: 08/18/17 Chief Complaint: Confusion. Chest pain. The patient is a 62 year old M who is been brought in for confusion by his pastors. Patient's had some pastors, see him and talk with him in the patient has no recollection of any encounter happening. Patient's mother's called him before patient has no recollection or when he has. So with the confusion, patient was brought into the hospital. Head CT was unremarkable for any acute process. Patient also is also complaining of some midsternal chest pain and some anxiety. Patient states that this is been going on for months and states that his symptoms get worse when he longer he is not drinking and better when he does resume drinking. Patient thinks that he is quit alcohol before but had no recollection of actually being admitted here in May for alcohol withdrawal treatment. Patient is a poor historian so much of the history is taken to the emergency room physician. Patient is requesting withdrawal treatment for alcohol. States that it is he wants to do it for his health. When told that he does not really manifest a lot of remorse regards to his alcohol abuse he said that he wants to essentially mend fences with his family quitting. [] Past Medical History Past Medical History (Chronic Problems): Chronic Problems Urinary incontinence with continuous leakage (Chronic) Chronic back pain (Chronic) Allergies ciprofloxacin [From Cipro] Allergy (Verified 08/18/17 11:31) Other PT STATES MAKES ME FALL DOWN Home Medications: Ambulatory Orders Medication Instructions Recorded NK [NK] 08/18/17 Surgical History: TURP Smoking Status: Heavy Smoker (>10/day) Tobacco Use: Cigarettes Alcohol: Heavy Drugs: None - *Family History Maternal History Items: No pertinent history, - - No heart disease Review of Systems Constitutional: Denies: Chills, Fever, Weight Change Eyes: Denies: Blurred vision, Double vision HEENT: Denies: Head Aches, Sinus Congestion, Sinus Drainage Cardiovascular: Reports: Chest Pain. Denies: Palpitations Respiratory: Denies: Cough, Shortness of breath at rest, Sputum production Gastrointestinal: Denies: Abdominal Pain, Nausea, Vomiting Genitourinary: Denies: Dysuria Musculoskeletal: Denies: Joint Pain, Joint Tenderness Skin: Denies: Rash, Wounds Neurological: Denies: Numbness, Tingling, Focal weakness Psychiatric: Denies: Anxiety, Depression Hematologic/ Lymphatic: Denies: Easy Bruising, Easy Bleeding, Hx of blood clot VTE Information - Inpt Only VTE Present on Admission: No VTE Pharm Prophylaxis ordered?: Yes Patient Problems: Active and Suspected Problems Encephalopathy (Acute) Chest pain (Acute) Anxiety (Acute) Alcohol withdrawal (Acute) - Physical Exam General: Alert, Cooperative, No apparent distress, - - oriented x1 HEENT: Atraumatic, PERRLA, Normocephalic, - - bilaterally lateral nystagmus Oral: Moist Mucosa, No Gingival or Mucosal Lesions/ Ulcerations Neck: No Nodes, Thyroid Normal Size and Texture Lungs: Clear to auscultation, Normal air movement, No rhonchi, No wheeze Cardiovascular: Regular rate, Regular Rhythm, Normal S1, Normal S2, No murmurs Abdomen: Bowel Sounds Present, Soft, Non Tender, Non-Distended, No Hepato-splenomegaly Extremities: No edema, No Calf Tenderness Skin: No rashes, No breakdown Musculoskeletal: No Tenderness to Palpation of Joints or Extremities, No Muscle Wasting Neurological: Cranial nerves II-XII grossly intact, Deep Tendon Reflexes 2+/4 and Symmetrical, Neuro grossly intact, Motor Exam 5/5 strength throughout Psych/Mental Status: Flat Affect Vital Signs Temp Pulse Resp BP Pulse Ox 36.7 C 108 H 16 142/96 H 97 08/18/17 11:28 08/18/17 13:37 08/18/17 13:37 08/18/17 13:37 08/18/17 13:37 Oxygen Delivery Method Room Air Weight: 97.7 kg Body Mass Index (BMI) 26.9 Laboratory Tests Past 24 Hrs 08/18/17 08/18/17 08/18/17 12:10 12:10 12:10 WBC 4.2 L RBC 5.04 Hgb 15.4 Hct 45.6 MCV 90.5 MCH 30.6 MCHC 33.8 RDW 15.2 H RDW Differential 49.0 H Plt Count 181 MPV 9.9 Immature Gran % (Auto) 0.700 Neut % (Auto) 69.3 Lymph % (Auto) 14.6 L [place] % (Auto) 12.5 H Eos % (Auto) 0.7 Baso % (Auto) 2.2 H Absolute Neuts (auto) 2.9 Absolute Lymphs (auto) 0.61 L Total Counted Not Reportable Sodium 136 Potassium 3.7 Chloride 102 Carbon Dioxide 23.0 Anion Gap 11 BUN 3 L Creatinine 0.56 L Estim Creat Clear Calc 167.66 Est GFR (MDRD) Af Amer 190 Est GFR (MDRD) Non-Af 157 BUN/Creatinine Ratio 5.3 L Glucose 88 Calcium 8.7 Total Bilirubin 0.40 AST 158 H ALT 158 H Alkaline Phosphatase 122 H Troponin I < 0.02 Total Protein 7.7 Albumin 3.8 Globulin 3.9 Albumin/Globulin Ratio 1.0 Ethyl Alcohol 167.0 Assessment/Plan Active and Suspected Problems Encephalopathy (Acute) Chest pain (Acute) Anxiety (Acute) Alcohol withdrawal (Acute) 1. Acute alcohol withdrawal Patient's CIWA score is 7, however he did receive Librium before I saw him. I expressed the patient is very concerned he is really does know obvious remorse and I felt that he would be not an ideal candidate for seeking withdrawal treatment I told him that we have given the benefit of doubt. Afterwards, I reviewed his chart and saw that he was here in May for acute alcohol withdrawal treatment and that he is always a failed that. He has been consuming 624 ounce beers per day. Patient will be on thiamine and folate. I am not sure the patient will really qualify for [facility] at this hospital being that he was here 2 months ago for the same reason. 2. Encephalopathy Patient is oriented ?1. May be warranted he is [place]. The patient is technically intoxicated as well which certainly adds to that. He has no idea what the date is he does not know who the president is he does not know his location at this time. I suspect this is chronic but previous evaluations did not assess his orientation. Suspect patient probably at his baseline but will order an MRI to evaluate for any other acute process. Head CT was unremarkable. 3. Chest pain: Suspect more related with anxiety than anything. We will cycle troponins and check a stress test. 4. Prophylaxis with Lovenox. Code Visit Inpatient E&M: 75058 Init Hosp L3
--- NOTE | 2017-08-18 14:22 | HP.PCM_ITS ---
Problem List (1) Encephalopathy Status: Acute (2) Chest pain Status: Acute (3) Anxiety Status: Acute (4) Alcohol withdrawal Status: Acute (5) Alcohol dependency Status: Acute Qualifiers: (6) Urinary incontinence with continuous leakage Status: Chronic (7) Chronic back pain Status: Chronic (8) History of prostate cancer Status: Acute History of Present Illness Date of Admission: 08/18/17 Chief Complaint: Confusion. Chest pain. The patient is a 62 year old M who is been brought in for confusion by his pastors. Patient's had some pastors, see him and talk with him in the patient has no recollection of any encounter happening. Patient's mother's called him before patient has no recollection or when he has. So with the confusion, patient was brought into the hospital. Head CT was unremarkable for any acute process. Patient also is also complaining of some midsternal chest pain and some anxiety. Patient states that this is been going on for months and states that his symptoms get worse when he longer he is not drinking and better when he does resume drinking. Patient thinks that he is quit alcohol before but had no recollection of actually being admitted here in May for alcohol withdrawal treatment. Patient is a poor historian so much of the history is taken to the emergency room physician. Patient is requesting withdrawal treatment for alcohol. States that it is he wants to do it for his health. When told that he does not really manifest a lot of remorse regards to his alcohol abuse he said that he wants to essentially mend fences with his family quitting. [] Past Medical History Past Medical History (Chronic Problems): Chronic Problems Urinary incontinence with continuous leakage (Chronic) Chronic back pain (Chronic) Allergies ciprofloxacin [From Cipro] Allergy (Verified 08/18/17 11:31) Other PT STATES MAKES ME FALL DOWN Home Medications: Ambulatory Orders Medication Instructions Recorded NK [NK] 08/18/17 Surgical History: TURP Smoking Status: Heavy Smoker (>10/day) Tobacco Use: Cigarettes Alcohol: Heavy Drugs: None - *Family History Maternal History Items: No pertinent history, - - No heart disease Review of Systems Constitutional: Denies: Chills, Fever, Weight Change Eyes: Denies: Blurred vision, Double vision HEENT: Denies: Head Aches, Sinus Congestion, Sinus Drainage Cardiovascular: Reports: Chest Pain. Denies: Palpitations Respiratory: Denies: Cough, Shortness of breath at rest, Sputum production Gastrointestinal: Denies: Abdominal Pain, Nausea, Vomiting Genitourinary: Denies: Dysuria Musculoskeletal: Denies: Joint Pain, Joint Tenderness Skin: Denies: Rash, Wounds Neurological: Denies: Numbness, Tingling, Focal weakness Psychiatric: Denies: Anxiety, Depression Hematologic/ Lymphatic: Denies: Easy Bruising, Easy Bleeding, Hx of blood clot VTE Information - Inpt Only VTE Present on Admission: No VTE Pharm Prophylaxis ordered?: Yes Patient Problems: Active and Suspected Problems Encephalopathy (Acute) Chest pain (Acute) Anxiety (Acute) Alcohol withdrawal (Acute) - Physical Exam General: Alert, Cooperative, No apparent distress, - - oriented x1 HEENT: Atraumatic, PERRLA, Normocephalic, - - bilaterally lateral nystagmus Oral: Moist Mucosa, No Gingival or Mucosal Lesions/ Ulcerations Neck: No Nodes, Thyroid Normal Size and Texture Lungs: Clear to auscultation, Normal air movement, No rhonchi, No wheeze Cardiovascular: Regular rate, Regular Rhythm, Normal S1, Normal S2, No murmurs Abdomen: Bowel Sounds Present, Soft, Non Tender, Non-Distended, No Hepato- splenomegaly Extremities: No edema, No Calf Tenderness Skin: No rashes, No breakdown Musculoskeletal: No Tenderness to Palpation of Joints or Extremities, No Muscle Wasting Neurological: Cranial nerves II-XII grossly intact, Deep Tendon Reflexes 2+/4 and Symmetrical, Neuro grossly intact, Motor Exam 5/5 strength throughout Psych/Mental Status: Flat Affect Vital Signs Temp Pulse Resp BP Pulse Ox 36.7 C 108 H 16 142/96 H 97 08/18/17 11:28 08/18/17 13:37 08/18/17 13:37 08/18/17 13:37 08/18/17 13:37 Oxygen Delivery Method Room Air Weight: 97.7 kg Body Mass Index (BMI) 26.9 Laboratory Tests Past 24 Hrs 08/18/17 08/18/17 08/18/17 12:10 12:10 12:10 WBC 4.2 L RBC 5.04 Hgb 15.4 Hct 45.6 MCV 90.5 MCH 30.6 MCHC 33.8 RDW 15.2 H RDW Differential 49.0 H Plt Count 181 MPV 9.9 Immature Gran % (Auto) 0.700 Neut % (Auto) 69.3 Lymph % (Auto) 14.6 L [place] % (Auto) 12.5 H Eos % (Auto) 0.7 Baso % (Auto) 2.2 H Absolute Neuts (auto) 2.9 Absolute Lymphs (auto) 0.61 L Total Counted Not Reportable Sodium 136 Potassium 3.7 Chloride 102 Carbon Dioxide 23.0 Anion Gap 11 BUN 3 L Creatinine 0.56 L Estim Creat Clear Calc 167.66 Est GFR (MDRD) Af Amer 190 Est GFR (MDRD) Non-Af 157 BUN/Creatinine Ratio 5.3 L Glucose 88 Calcium 8.7 Total Bilirubin 0.40 AST 158 H ALT 158 H Alkaline Phosphatase 122 H Troponin I < 0.02 Total Protein 7.7 Albumin 3.8 Globulin 3.9 Albumin/Globulin Ratio 1.0 Ethyl Alcohol 167.0 Assessment/Plan Active and Suspected Problems Encephalopathy (Acute) Chest pain (Acute) Anxiety (Acute) Alcohol withdrawal (Acute) 1. Acute alcohol withdrawal * Patient's CIWA score is 7, however he did receive Librium before I saw him. * I expressed the patient is very concerned he is really does know obvious remorse and I felt that he would be not an ideal candidate for seeking withdrawal treatment I told him that we have given the benefit of doubt. Afterwards, I reviewed his chart and saw that he was here in May for acute alcohol withdrawal treatment and that he is always a failed that. He has been consuming 624 ounce beers per day. Patient will be on thiamine and folate. * I am not sure the patient will really qualify for [facility] at this hospital being that he was here 2 months ago for the same reason. 2. Encephalopathy * Patient is oriented ?1. * May be warranted he is [place]. The patient is technically intoxicated as well which certainly adds to that. * He has no idea what the date is he does not know who the president is he does not know his location at this time. * I suspect this is chronic but previous evaluations did not assess his orientation. Suspect patient probably at his baseline but will order an MRI to evaluate for any other acute process. Head CT was unremarkable. 3. Chest pain: * Suspect more related with anxiety than anything. We will cycle troponins and check a stress test. 4. Prophylaxis with Lovenox. Code Visit Inpatient E&M: 74994 Init Hosp L3
--- NOTE | 2017-08-18 15:23 | MRI_ITS ---
STUDY: MRI BRAIN WITHOUT CONTRAST REASON FOR EXAM: Male, 62 years old. Confusion TECHNIQUE: Standardized multiplanar fat and water weighted pulse sequences were obtained. COMPARISON: CT of the brain on August 18, 2017 FINDINGS: Mild cerebral atrophy.. Normal white matter tracts of the supratentorial brain. Mild diffuse cerebellar atrophy. Normal bilateral basal ganglia. Normal thalami. There is no extra-axial fluid accumulation. Normal flow voids within the major intracranial circulation suggesting patency by spin echo criteria. Normal sella turcica, pituitary gland, infundibular stalk, optic chiasm and hypothalamus. Normal tectal plate and pineal gland. Normal midbrain, sylvia and medulla. Mild cerebellar atrophy. Normal basal cisterns. Normal bilateral temporal bones. Normal bilateral internal auditory canals. No demonstrated orbital abnormality, within the constraints of a routine brain study. Prominent mucosal thickening in left maxillary sinus.. Normal calvarium and skull base. Normal visualized soft tissue structures. Normal visualized upper cervical spine. MRI/Brain without Contrast IMPRESSION: Mild cerebral and cerebellar atrophy. No significant white matter disease or evidence for acute infarct Electronically Signed: Hugh Ogden MD at 19:54 EDT , Service support ,
--- NOTE | 2017-08-18 16:10 | NURSING ---
Patient's belly dump driver brought patient in to ER. His belly dump driver's name is Derek Colon and patient gave verbal consent for information to be given to him. Notified by Derek that patient's mother is his POA and that she recently went into a retirement. Derek requests to be notified for any changes or for anything that might be needed.
[2017-08-18 16:28] LABS: Prothrombin Time (Protime)PT. 13.6 SECONDS (11.7-14.9)
[2017-08-18] MEDS: Lactated Ringers 1,000 ML 125 ML IV (16:43)
[2017-08-18] MEDS: 0.9% NaCl Peripheral Flush Adult/Peds IV (16:43)
[2017-08-18] MEDS: LORazepam 1 MG Tablet PO ×2 (17:16→21:23)
[2017-08-18] MEDS: Dicyclomine 10 MG Capsule 20 MG PO (19:40)
[2017-08-18] MEDS: Famotidine 20 MG Tablet PO (21:23)
[2017-08-19] VITALS (14 sets, daily range): BP systolic 87–178; BP diastolic 54–122; PULSE 94–116; RESP 14–22; TEMP 36.7–37.2; O2SAT 97–98
[2017-08-19] MEDS: Loperamide 2 MG Capsule PO ×2 (01:11→13:58)
[2017-08-19] MEDS: LORazepam 1 MG Tablet PO ×5 (01:11→22:11)
[2017-08-19 01:34] LABS: Bacteria 0 SEEN /hpf (None Seen); Mucous, Urine 0 SEEN /hpf (<or=2+); Red Blood Cells-Urine 0 SEEN /hpf (0-5); Squamous Epithelial Cells - UA 0 SEEN /hpf (0-5); White Blood Cells 0 SEEN /hpf (0-5)
[2017-08-19 01:41] LABS: Vista UDS pH Range 7
[2017-08-19 01:54] LABS: Color, Urine Yellow (Yellow); Glucose, Dipstick Normal (Normal); Ketone-Dipstick Negative (Negative); Leukocyte Esterase-Dipstick 25 /ul (Negative); Nitrite-Dipstick Negative (Negative); Occult Blood-Urine 10 /ul (Negative); Protein-Dipstick Negative (Negative); Specific Gravity, Urine 1.015 (1.002-1.030); Urine Bilirubin Dipstick Negative (Negative); Urine Clarity Clear (Clear); Urine Urobilinogen Normal (Normal); Urine pH 6.5 (5.0 - 8.0)
[2017-08-19 02:38] LABS: Amphetamine Urine VISTA NEGATIVE (<1000 ng/mL); Barbiturate Urine VISTA NEGATIVE (< 200 ng/mL); Benzodiazepine Urine VISTA POSITIVE (< 200 ng/mL); Cocaine Urine VISTA NEGATIVE (< 300 ng/mL); Ecstacy Urine VISTA NEGATIVE (< 500 ng/mL); Methadone Urine VISTA NEGATIVE (< 300 ng/mL); PCP Urine VISTA NEGATIVE (< 25 ng/mL); THC Urine VISTA NEGATIVE (< 50 ng/mL)
[2017-08-19] MEDS: hydrALAZINE 20 MG/ML Vial IV (06:01)
[2017-08-19] MEDS: 0.9% NaCl Peripheral Flush Adult/Peds IV ×2 (06:02→19:44)
[2017-08-19 06:35] LABS: Cholesterol 140 mg/dL (200); High Density Lipoprotein 79 mg/dL; Thyroid Stim Hormone (TSH) 1.73 uIU/mL (0.358-3.74); Triglycerides 58 mg/dL; Very Low Density Lipoprotein 12 mg/dL (5-40)
--- NOTE | 2017-08-19 06:54 | PCM.PN.HOSP ---
Patient Problems: Active and Suspected Problems Encephalopathy (Acute) Chest pain (Acute) Anxiety (Acute) Alcohol withdrawal (Acute) Subjective: Patient notes overnight still having tremors and did not sleep well. Denies any hallucinations. Patient denies any recurrent chest discomfort. Patient noted that he does have ongoing anxiety and feels that this is contributing to his withdrawal symptoms. Discussed the fact that he has been using alcohol as a method of dealing with underlying anxiety and depression and related that following acute withdrawal treatment it would be beneficial for him with [facility] to arrange counseling and possible medication consideration including SSRI. patient denies fevers, chills, nausea, emesis, abdominal pain or dyspnea. Objective: Physical Examination: General: awake, alert, oriented x 3 and cooperative, seated upright in bd, fatigued appearance. Skin: normal color, turgor, no icterus, cyanosis. HEENT: AT/NC, EOMI, PERRLA, mildly dry MM. Lungs: Diminished BS BL, > bases, no rales, ronchi or wheezing. Heart: Regular rate and rhythm; no gallop, rub audible. Abdomen: soft, overweight, NTTP, ND, normal BS. Extremities: no cyanosis, clubbing, or edema. Neurological: patient awake, alert, oriented x 3; cognitive function intact; pupils equally reactive to light and accomodation; cranial nerves II-XII grossly normal, moving all 4 extremities, no focal deficits, strength mildly to moderately globally decreased secondary to acute withdrawal, mild tremor present. Psychiatric: affect appears fatigued, mildly flat, despite his comments no acute evidence of depressive or anxiety feelings. Vitals/I&O's: Vital Signs Temp Pulse Resp BP Pulse Ox 98.5 F 105 H 18 152/96 H 97 08/19/17 05:28 08/19/17 06:01 08/19/17 05:28 08/19/17 06:50 08/18/17 15:55 Oxygen Delivery Method Room Air Weight: 217 lb 2.485 oz Body Mass Index (BMI) 27.1 Intake and Output for Last 24 Hours 08/17/17 08/18/17 08/19/17 23:59 23:59 23:59 Intake Total 970 / 970 Balance 970 / 970 Laboratory Results 08/18/17 15:53: Troponin I < 0.02 08/18/17 15:53: PT 13.6, INR 1.0 08/18/17 21:09: Troponin I < 0.02 08/19/17 01:15: Urine Color Yellow, Urine Clarity Clear, Urine pH 6.5, Ur Specific [place] 1.015, Urine Protein Negative, Urine Glucose (UA) Normal, Urine Ketones Negative, Urine Occult Blood 10 H, Urine Nitrite Negative, Urine Bilirubin Negative, Urine Urobilinogen Normal, Ur Leukocyte Esterase 25 H, Urine RBC 0 SEEN, Urine WBC 0 SEEN, Ur Squamous Epith Cells 0 SEEN, Urine Bacteria 0 SEEN, Urine Mucus 0 SEEN 08/19/17 01:15: Urine Opiates Screen NEGATIVE, Urine Methadone Screen NEGATIVE, Ur Barbiturates Screen NEGATIVE, Ur Phencyclidine Scrn NEGATIVE, Ur Amphetamines Screen NEGATIVE, U Methamphetamin-MDMA NEGATIVE, U Benzodiazepines Scrn POSITIVE H, Urine Cocaine Screen NEGATIVE, U Cannabinoids Screen NEGATIVE, Ur Drug Screen Comment 08/19/17 05:32: Triglycerides 58, Cholesterol 140, LDL Cholesterol 49, VLDL Cholesterol 12, HDL Cholesterol 79, TSH 1.73 Current Medications Acetaminophen (Tylenol) 650 mg PO Q6H PRN PRN PRN Reason: Mild Pain (1-3)/Temp > 100.7 F Dicyclomine HCl (Bentyl) 20 mg PO Q6H PRN PRN PRN Reason: abdominal discomfort Last Admin: 08/18/17 19:40 Dose: 20 mg Enoxaparin Sodium (Lovenox) 40 mg SC DAILY@1000 [facility] Famotidine (Pepcid) 20 mg PO BID [facility] Last Admin: 08/18/17 21:23 Dose: 20 mg Folic Acid (Folic Acid) 1 mg PO DAILY@0800 [facility] Ibuprofen (Motrin) 600 mg PO Q8H PRN PRN PRN Reason: Mild-Moderate Pain (1-5/10) Loperamide HCl (Imodium) 2 mg PO Q2H PRN PRN PRN Reason: Diarrhea Last Admin: 08/19/17 01:11 Dose: 2 mg Lorazepam (Ativan) 1 mg PO Q4H [facility] PRN Reason: Taper Stop: 08/21/17 18:14 Last Admin: 08/19/17 05:21 Dose: 1 mg Magnesium Hydroxide (Milk Of Magnesia) 30 ml PO DAILY PRN PRN PRN Reason: Constipation Methocarbamol (Methocarbamol) 750 mg PO Q6H PRN PRN PRN Reason: Muscle Aches Nicotine (Nicoderm Cq (Pbkc)) 21 mg TRANSDERM. DAILY JOE Last Admin: 08/18/17 16:51 Dose: 21 mg Nicotine Polacrilex ([place] Nicotine (Pbkc)) 4 mg PO Q2H PRN PRN PRN Reason: Nicotine Craving Last Admin: 08/18/17 22:10 Dose: 4 mg Nitroglycerin (Nitrostat) 0.4 mg SUBLINGUAL Q5M PRN PRN Reason: CHEST PAIN Nutritional Formula (Lactose Free) (Ensure Clear) 120 ml PO 4X/DAY JOE Ondansetron HCl (Zofran) 4 mg IV Q8H PRN PRN PRN Reason: NAUSEA Sodium Chloride () 5 - 30 ml IV UD PRN PRN Reason: SALINE FLUSH Last Admin: 08/19/17 06:02 Dose: 10 ml Thiamine HCl (Vitamin B1) 100 mg PO DAILYCM JOE Medical Necessity - Tobacco Use Smoking Status: Current every day smoker Tobacco Use: Cigarettes Assessment/Plan Active and Suspected Problems Encephalopathy (Acute) Chest pain (Acute) Anxiety (Acute) Alcohol withdrawal (Acute) The patient is a 62 y/o M w/ PMHx: Hx Prostate CA, Chronic Back Pain, Urinary Incontinence, Anxiety and Depression, EtOH Abuse who presents to the [facility] ED on 08/18/17, brought in per his Gnosticism with confusion and onset midsternal chest pain ongoing for several months with recent decision for sobriety with acute EtOH withdrawal sxs. (1) Acute EtOH Withdrawal: Admitted to [facility] on telemetry, routine labs including CBC, CMP, urine for drug screen, urinalysis, initiated and continued on [facility] service protocol with taper course of ativan, Given ongoing sxs and fatigue will assure addition of as needed Seroquel, Catapres, Bentyl, Vistaril, antiemetics, Tylenol. Once patient clinically improved and completion of taper nearing will plan [facility] assistance for transition to next level of rehabilitation care including encouragement of therapy given underlying anxiety and depression. Mag, phos pending. Maintain on CIWA protocol. Maintain on MVI, thiamine, folic acid. (2) Encephalopathy: Likely secondary to #1, improved, although possibly chronic component secondary to prolonged EtOH Abuse and exposure, CT Head without acute findings, UA unremarkable, CXR not performed but unremarkable exam per admission ED/physician. (3) Chest Pain: Suspected more secondary to anxiety. No ongoing chest pain overnight following admission. EKG in ED no acute findings, initial trop normal ?1. Maintained on a monitored bed to assure no acute myocardial infarction with serial cardiac enzymes and EKGs. Planned AM nuclear stress testing. FLP not marked appearing. ASA, NG, morphine. Mag and phos pending. (4) Abnormal Liver Enzymes: Admission AST/ALT 158/158, Alk phos 122, likely secondary to his EtOH Abuse, repeat CMP in AM. (5) Tobacco Abuse: Encouraged cessation, inpatient consultation per RT, NR if desired. (6) Elevated BP without HTN Dx: Elevated over the last 24 hours, likely in part secondary to withdrawal, but suspect component HTN, will add low dose ACEI, continue to monitor, PRN hydralazine. (7) Anxiety and Depression: Not on regimen, would benefit from outpatient therapy and likely initiation SSRI. [facility] to assist in set-up. (8) GERD: Famotidine. (9) DVT Prophylaxis: SCDs, lovenox. Code Visit Inpatient E&M: 66837 Subs Hosp L2
--- NOTE | 2017-08-19 07:05 | PN_ITS ---
Patient Problems: Active and Suspected Problems Encephalopathy (Acute) Chest pain (Acute) Anxiety (Acute) Alcohol withdrawal (Acute) Subjective: Patient notes overnight still having tremors and did not sleep well. Denies any hallucinations. Patient denies any recurrent chest discomfort. Patient noted that he does have ongoing anxiety and feels that this is contributing to his withdrawal symptoms. Discussed the fact that he has been using alcohol as a method of dealing with underlying anxiety and depression and related that following acute withdrawal treatment it would be beneficial for him with [facility] to arrange counseling and possible medication consideration including SSRI. patient denies fevers, chills, nausea, emesis, abdominal pain or dyspnea. Objective: Physical Examination: General: awake, alert, oriented x 3 and cooperative, seated upright in bd, fatigued appearance. Skin: normal color, turgor, no icterus, cyanosis. HEENT: AT/NC, EOMI, PERRLA, mildly dry MM. Lungs: Diminished BS BL, > bases, no rales, ronchi or wheezing. Heart: Regular rate and rhythm; no gallop, rub audible. Abdomen: soft, overweight, NTTP, ND, normal BS. Extremities: no cyanosis, clubbing, or edema. Neurological: patient awake, alert, oriented x 3; cognitive function intact; pupils equally reactive to light and accomodation; cranial nerves II-XII grossly normal, moving all 4 extremities, no focal deficits, strength mildly to moderately globally decreased secondary to acute withdrawal, mild tremor present. Psychiatric: affect appears fatigued, mildly flat, despite his comments no acute evidence of depressive or anxiety feelings. Vitals/I&O's: Vital Signs Temp Pulse Resp BP Pulse Ox 98.5 F 105 H 18 152/96 H 97 08/19/17 05:28 08/19/17 06:01 08/19/17 05:28 08/19/17 06:50 08/18/17 15:55 Oxygen Delivery Method Room Air Weight: 217 lb 2.485 oz Body Mass Index (BMI) 27.1 Intake and Output for Last 24 Hours 08/17/17 08/18/17 08/19/17 23:59 23:59 23:59 Intake Total 970 / 970 Balance 970 / 970 Laboratory Results 08/18/17 15:53: Troponin I < 0.02 08/18/17 15:53: PT 13.6, INR 1.0 08/18/17 21:09: Troponin I < 0.02 08/19/17 01:15: Urine Color Yellow, Urine Clarity Clear, Urine pH 6.5, Ur Specific [place] 1.015, Urine Protein Negative, Urine Glucose (UA) Normal, Urine Ketones Negative, Urine Occult Blood 10 H, Urine Nitrite Negative, Urine Bilirubin Negative, Urine Urobilinogen Normal, Ur Leukocyte Esterase 25 H, Urine RBC 0 SEEN, Urine WBC 0 SEEN, Ur Squamous Epith Cells 0 SEEN, Urine Bacteria 0 SEEN, Urine Mucus 0 SEEN 08/19/17 01:15: Urine Opiates Screen NEGATIVE, Urine Methadone Screen NEGATIVE, Ur Barbiturates Screen NEGATIVE, Ur Phencyclidine Scrn NEGATIVE, Ur Amphetamines Screen NEGATIVE, U Methamphetamin-MDMA NEGATIVE, U Benzodiazepines Scrn POSITIVE H, Urine Cocaine Screen NEGATIVE, U Cannabinoids Screen NEGATIVE, Ur Drug Screen Comment 08/19/17 05:32: Triglycerides 58, Cholesterol 140, LDL Cholesterol 49, VLDL Cholesterol 12, HDL Cholesterol 79, TSH 1.73 Current Medications Acetaminophen (Tylenol) 650 mg PO Q6H PRN PRN PRN Reason: Mild Pain (1-3)/Temp > 100.7 F Dicyclomine HCl (Bentyl) 20 mg PO Q6H PRN PRN PRN Reason: abdominal discomfort Last Admin: 08/18/17 19:40 Dose: 20 mg Enoxaparin Sodium (Lovenox) 40 mg SC DAILY@1000 [facility] Famotidine (Pepcid) 20 mg PO BID [facility] Last Admin: 08/18/17 21:23 Dose: 20 mg Folic Acid (Folic Acid) 1 mg PO DAILY@0800 [facility] Ibuprofen (Motrin) 600 mg PO Q8H PRN PRN PRN Reason: Mild-Moderate Pain (1-5/10) Loperamide HCl (Imodium) 2 mg PO Q2H PRN PRN PRN Reason: Diarrhea Last Admin: 08/19/17 01:11 Dose: 2 mg Lorazepam (Ativan) 1 mg PO Q4H [facility] PRN Reason: Taper Stop: 08/21/17 18:14 Last Admin: 08/19/17 05:21 Dose: 1 mg Magnesium Hydroxide (Milk Of Magnesia) 30 ml PO DAILY PRN PRN PRN Reason: Constipation Methocarbamol (Methocarbamol) 750 mg PO Q6H PRN PRN PRN Reason: Muscle Aches Nicotine (Nicoderm Cq (Pbkc)) 21 mg TRANSDERM. DAILY JOE Last Admin: 08/18/17 16:51 Dose: 21 mg Nicotine Polacrilex (Rugby Nicotine (Pbkc)) 4 mg PO Q2H PRN PRN PRN Reason: Nicotine Craving Last Admin: 08/18/17 22:10 Dose: 4 mg Nitroglycerin (Nitrostat) 0.4 mg SUBLINGUAL Q5M PRN PRN Reason: CHEST PAIN Nutritional Formula (Lactose Free) (Ensure Clear) 120 ml PO 4X/DAY JOE Ondansetron HCl (Zofran) 4 mg IV Q8H PRN PRN PRN Reason: NAUSEA Sodium Chloride () 5 - 30 ml IV UD PRN PRN Reason: SALINE FLUSH Last Admin: 08/19/17 06:02 Dose: 10 ml Thiamine HCl (Vitamin B1) 100 mg PO DAILYCM JOE Medical Necessity - Tobacco Use Smoking Status: Current every day smoker Tobacco Use: Cigarettes Assessment/Plan Active and Suspected Problems Encephalopathy (Acute) Chest pain (Acute) Anxiety (Acute) Alcohol withdrawal (Acute) The patient is a 62 y/o M w/ PMHx: Hx Prostate CA, Chronic Back Pain, Urinary Incontinence, Anxiety and Depression, EtOH Abuse who presents to the [facility] ED on , brought in per his Hinduism with confusion and onset midsternal chest pain ongoing for several months with recent decision for sobriety with acute EtOH withdrawal sxs. (1) Acute EtOH Withdrawal: Admitted to [place] on telemetry, routine labs including CBC, CMP, urine for drug screen, urinalysis, initiated and continued on [facility] service protocol with taper course of ativan, Given ongoing sxs and fatigue will assure addition of as needed Seroquel, Catapres, Bentyl, Vistaril, antiemetics, Tylenol. Once patient clinically improved and completion of taper nearing will plan [facility] assistance for transition to next level of rehabilitation care including encouragement of therapy given underlying anxiety and depression. Mag, phos pending. Maintain on CIWA protocol. Maintain on MVI, thiamine, folic acid. (2) Encephalopathy: Likely secondary to #1, improved, although possibly chronic component secondary to prolonged EtOH Abuse and exposure, CT Head without acute findings, UA unremarkable, CXR not performed but unremarkable exam per admission ED/physician. (3) Chest Pain: Suspected more secondary to anxiety. No ongoing chest pain overnight following admission. EKG in ED no acute findings, initial trop normal ?1. Maintained on a monitored bed to assure no acute myocardial infarction with serial cardiac enzymes and EKGs. Planned AM nuclear stress testing. FLP not marked appearing. ASA, NG, morphine. Mag and phos pending. (4) Abnormal Liver Enzymes: Admission AST/ALT 158/158, Alk phos 122, likely secondary to his EtOH Abuse, repeat CMP in AM. (5) Tobacco Abuse: Encouraged cessation, inpatient consultation per RT, NR if desired. (6) Elevated BP without HTN Dx: Elevated over the last 24 hours, likely in part secondary to withdrawal, but suspect component HTN, will add low dose ACEI, continue to monitor, PRN hydralazine. (7) Anxiety and Depression: Not on regimen, would benefit from outpatient therapy and likely initiation SSRI. [facility] to assist in set-up. (8) GERD: Famotidine. (9) DVT Prophylaxis: SCDs, lovenox. Code Visit Inpatient E&M: 66214 Subs Hosp L2
[2017-08-19] MEDS: Dicyclomine 10 MG Capsule 20 MG PO (07:22)
[2017-08-19 07:52] LABS: Magnesium 1.9 mg/dL (1.6-2.6); Phosphorus 2.9 mg/dL (2.5-4.9)
[2017-08-19] MEDS: Aspirin 81 MG TAB.CHEW PO (09:18)
--- NOTE | 2017-08-19 12:31 | STRESSREP_ITS ---
Stress Test Report Date: 08/19/2017 Procedure: Pharmacologic stress nuclear imaging study Indications: Chest pain Consent: Per the patient Procedure: The patient underwent pharmacologic (Regadenoson) evaluation with a peak heart rate of 126 beats per minute (78 predicted maximal heart rate) and a peak blood pressure of 158/100 mmHg. The baseline ECG demonstrated normal sinus rhythm. The peak pharmacologic ECG demonstrated no obvious ECG changes. There were no cardiac dysrhythmias pretest, during pharmacologic infusion, or recovery. There was no complaint of chest discomfort during pharmacologic infusion or recovery. The examination was discontinued secondary to completion of protocol. Impression: 1. Pharmacologic (Regadenoson) evaluation 2. Peak pharmacologic ECG with no obvious ECG changes. 3. There were no cardiac dysrhythmias pretest, during pharmacologic infusion, or recovery 4. Nuclear images pending Myocardial perfusion imaging study: Technique: The patient was injected with 11.9 millicuries of technetium 99m Cardiolite and subsequently rest SPECT Cardiolite nuclear imaging was obtained in the horizontal long, vertical long, and short axis views. The patient underwent pharmacologic (Regadenoson) evaluation with a peak heart rate of 126 beats per minute (78 % percent predicted maximal heart rate) and a peak blood pressure of 158/100 mmHg. The patient was injected with 33.1 millicuries of technetium 99m Cardiolite and subsequently stress SPECT Cardiolite nuclear imaging was obtained in the horizontal long, vertical long, and short axis views. A gated Cardiolite study at peak stress was obtained. Interpretation: Rest and stress SPECT Cardiolite nuclear imaging status post realignment, normalization, and attenuation correction demonstrate relative uniform tracer uptake and myocardial perfusion appearing within normal limits. There is end systolic thickening and brightening. The gated Cardiolite study demonstrates myocardial thickening and inward wall motion. The reported LVEF is 68 %. Impression: 1. Rest and stress SPECT Cardiolite nuclear imaging demonstrate relative uniform tracer uptake and myocardial perfusion appearing within normal limits. 2. The gated Cardiolite study reports an LVEF of 68 %. This note was generated with [employer] software. It may contain incorrect words, spelling, and punctuation that were not noted in checking the note before signing.
[2017-08-19] MEDS: Thiamine Hydrochloride 100 MG Tablet PO (13:50)
[2017-08-19] MEDS: cloNIDine HCl 0.1 MG Tablet PO (13:50)
[2017-08-19] MEDS: Famotidine 20 MG Tablet PO ×2 (13:50→22:11)
[2017-08-19] MEDS: Folic Acid 1 MG Tablet PO (13:50)
[2017-08-19] MEDS: Enoxaparin 40 MG/0.4 ML Syringe SC (13:51)
[2017-08-19] MEDS: Multivitamins,Ther W-Minerals Tablet 1 TABLET PO (13:52)
[2017-08-19] MEDS: Lisinopril 5 MG Tablet PO (13:52)
[2017-08-19] MEDS: hydrOXYzine PAM 25 MG Capsule 50 MG PO ×2 (16:14→22:11)
[2017-08-19] MEDS: Ibuprofen 600 MG Tablet PO (16:14)
[2017-08-19] MEDS: dilTIAZem CD 240 MG Capsule PO (16:15)
[2017-08-19] MEDS: Gabapentin 800 MG Tablet PO (16:15)
[2017-08-19] MEDS: Lisinopril 20 MG Tablet PO (16:15)
[2017-08-19] MEDS: Methocarbamol 750 MG Tablet PO ×2 (16:15→22:11)
--- NOTE | 2017-08-19 19:05 | RAD_ITS ---
STUDY: X-RAY - RIGHT FOOT CLINICAL: Male, 62 years old. Infected great and second toes TECHNIQUE: 2 view(s) of the foot. COMPARISON: None. FINDINGS: Normal talus, calcaneus, and tarsal bones. Normal visualized subtalar, talonavicular, calcaneocuboid, tarsal and tarsometatarsal articulations. Normal metatarsi. Normal metatarsophalangeal joint of the great toe. Normal tibial and fibular sesamoid bones. Normal interphalangeal joint of the great toe. Normal second through fifth metatarsophalangeal joints. Normal interphalangeal joints of the lesser toes. There is very mild subchondral lucency of the distal phalanx of the great toe possibly representing early changes of acute osteomyelitis although there is no seng cortical destruction at this time. Three-phase bone scan or MRI would be helpful for further evaluation if indicated There is soft tissue swelling the distal great and second toes. RAD/Foot 2 Views IMPRESSION: Soft tissue swelling the distal first and second toe. Cannot exclude early changes of acute osteomyelitis of the distal phalanx of the great toe. Electronically Signed: Hugh Ogden MD at 23:49 EDT , Service support ,
[2017-08-19] MEDS: Piperacil/Tazobactam 3.375 GM/50 ML ML IV (19:44)
--- NOTE | 2017-08-19 20:14 | PCM.RX.CS ---
Consult Pharmacy has been consulted to manage selected antiobiotic: Vancomycin Type of Consult: New start Suspected Infection: Skin/Soft tissue Labs: Sodium 136 mmol/L (136-145) 08/18/17 12:10 Potassium 3.7 mmol/L (3.5-5.1) 08/18/17 12:10 Chloride 102 mmol/L (98-107) 08/18/17 12:10 Carbon Dioxide 23.0 mmol/L (21.0-32.0) 08/18/17 12:10 Anion Gap 11 (5-15) 08/18/17 12:10 BUN 3 mg/dL (7-18) L 08/18/17 12:10 Creatinine 0.56 mg/dL (0.70-1.30) L 08/18/17 12:10 Est GFR (MDRD) Af Amer 190 mL/min (>60) 08/18/17 12:10 Est GFR (MDRD) Non-Af 157 mL/min (>60) 08/18/17 12:10 BUN/Creatinine Ratio 5.3 RATIO (10-20) L 08/18/17 12:10 Glucose 88 mg/dL (74-106) 08/18/17 12:10 Weight used for dosin.5 kg Estimated Creatinine Clearance: 168 ML/MIN Goal Trough: 10-15 mcg/mL Pharmacy Plan for Drug Dosing: Start at 1500mg IV q12h Pharmacy Service will continue to monitor and adjust dosing as required. Follow-Up Labs: Trough Vancomycin Labs to be done on [date and time ordered]: 08/21/17 at 07:30 before the 4th dose at 08:00
[2017-08-19 20:17] LABS: CRP, High Sensitivity Cardiac 1.92 mg/L
[2017-08-19 20:25] LABS: Erythrocyte Sedimentation Rate 15 mm/hr (0-20)
[2017-08-19] MEDS: Baclofen 10 MG Tablet PO (22:11)
[2017-08-20] VITALS (9 sets, daily range): BP systolic 86–132; BP diastolic 58–82; PULSE 85–101; RESP 16–18; TEMP 36.6–37.2; O2SAT 94–97
[2017-08-20] MEDS: LORazepam 1 MG Tablet PO ×3 (03:20→17:36)
[2017-08-20] MEDS: QUEtiapine 25 MG Tablet PO (03:20)
[2017-08-20] MEDS: cloNIDine HCl 0.1 MG Tablet PO ×2 (03:20→21:48)
[2017-08-20] MEDS: 0.9% NaCl IVPB Med Flush (250 mL) 15 ML IV (05:42)
[2017-08-20] MEDS: Methocarbamol 750 MG Tablet PO (05:45)
[2017-08-20] MEDS: hydrOXYzine PAM 25 MG Capsule 50 MG PO (05:45)
[2017-08-20] MEDS: Piperacil/Tazobactam 3.375 GM/50 ML ML IV ×3 (05:50→21:44)
--- NOTE | 2017-08-20 05:55 | MRI_ITS ---
STUDY: MRI RIGHT FOREFOOT WITHOUT CONTRAST REASON FOR EXAM: Male, 62 years old. Right foot ulcer at the first and second toe. TECHNIQUE: Standardized fat and water weighted pulse sequences were obtained in all 3 orthogonal planes. COMPARISON: X-ray August 19, 2017. FINDINGS: There is degenerative arthrosis of the metatarsophalangeal joint of the hallux. There is a bipartite fibula sesamoid. There is degenerative arthrosis of the interphalangeal joint of the hallus. Marrow edema of T2 signal hyperintensity of the proximal and distal phalanges of the great toe, series 8 images 10/25 through 02/24. Marrow edema T2 signal hyperintensity and osteomyelitis of the phalanges of the second digit, series 8 images and 16 Normal medial and lateral heads of the flexor hallucis brevis tendons. Normal flexor and extensor hallucis longus tendons. Normal second through fifth metatarsophalangeal (MTP) joints. Normal interphalangeal joints of the second through fifth toes. Normal proximal, middle and distal phalanges of the second through fifth toes. Normal first through fourth intermetatarsal spaces. Normal flexor and extensor tendons of the second through fifth toes. Normal visualized metatarsi. There is diffuse atrophy of the intrinsic muscles of the forefoot consistent with a peripheral neuropathy. Swelling of the toes. No fluid collection or abscess. MRI/Lower Ext/No Jt/w/o IMPRESSION: Osteomyelitis of the phalanges of the first and second toes. Electronically Signed: Luis Freeman MD at 20:17 EDT , Service support ,
[2017-08-20 06:17] LABS: ALB/GLOB Ratio 0.9 RATIO (0.9-2.4); AST(SGOT) 59 U/L (15-37); Alanine Aminotransfer ALT/SGPT 83 U/L (16-61); Albumin, Serum 2.7 g/dL (3.2-5.0); Alkaline Phosphatase 93 U/L (45-117); Anion Gap 8 (5-15); BUN 12 mg/dL (7-18); BUN/Creat Ratio 19.3 RATIO (10-20); Calcium,Total 8.2 mg/dL (8.5-10.1); Chloride 105 mmol/L (98-107); Creatinine, Serum 0.62 mg/dL (0.70-1.30); EST Glomerular Filtration Rate 140 mL/min (>60); Est Glom Filt Rate - Afr Amer 169 mL/min (>60); Estimated Creatinine Clearance 151.43 ml/min; Globulin 2.9 g/dL (2.2-4.2); Glucose 111 mg/dL (74-106); Potassium 3.2 mmol/L (3.5-5.1); Protein, Total 5.6 g/dL (6.4-8.2); Sodium Level 141 mmol/L (136-145)
[2017-08-20 07:39] LABS: Erythrocyte Sedimentation Rate 6 mm/hr (0-20)
[2017-08-20 07:42] LABS: Absolute Lymphocyte Count 0.78 X10^3/ul (0.83-4.51); Absolute Neutrophil Count 1.7 X10^3/uL (2.0-7.7); Basophil# 0.07 X10^3/uL; Basophil% 2.3 % (0-1); Eosinophil# 0.05 X10^3/uL; Eosinophils% 1.7 % (0-5); Hemoglobin 12.3 g/dl (13.0-16.5); Lymphocyte # 0.78 X10^3/ul (4.0); Lymphocyte % 25.8 % (19-41); Mean Corp Hgb Conc 33.2 g/gl (32-36); Mean Corpuscular Hgb 31.4 pg (27.0-32.0); Mean Corpuscular Volume 94.4 fL (80-94); Mean Platelet Vol. 10.8 fl (6.2-12.0); Monocyte# 0.39 X10^3/uL; Monocyte% 12.9 % (0-10); Neutrophil # 1.72 X10^3/uL (2.7-7.7); Platelet Count 154 K/mm3 (150-450); RBC Distribution Width CV 14.9 % (11.6-14.6); RBC Distribution Width SD 50.4 fl (35.1-43.9); Red Blood Count 3.92 M/mm3 (4.6-6.2)
[2017-08-20 07:43] LABS: POSITIVE COUNT NO; POSITIVE DIFFERENTIAL NO; POSITIVE MORPHOLOGY NO
--- NOTE | 2017-08-20 07:44 | PCM.HP.STD ---
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 (2) Ulcer of right foot with fat layer exposed Status: Chronic (3) Hammer toe of right foot Status: Chronic (4) Neuropathy Status: Chronic (5) Malnutrition Status: Chronic (6) Alcohol withdrawal Status: Acute History of Present Illness Date of Admission: 08/20/17 Chief Complaint: right foot wounds The patient is a 62 year old M was seen bedside this morning for right first and second toe ulcers. He is not aware of the onset. He reports he is not aware of the onset of this wound. He admits he has alcoholism and has been drinking nonstop for the past 3 weeks. He was brought into the emergency department yesterday. He noticed ulcers when he change his socks after 3 weeks. He denies known trauma. He denies claudication. He does have loss of sensation secondary to his neuropathy. He also relates his chronic pain following a prostate surgery that he had in the past. He reports he thinks the wounds are infected. Past Medical History Past Medical History (Chronic Problems): Chronic Problems Urinary incontinence with continuous leakage (Chronic) Chronic back pain (Chronic) Ulcer of right foot with necrosis of bone (Chronic) Ulcer of right foot with fat layer exposed (Chronic) Hammer toe of right foot (Chronic) Neuropathy (Chronic) Malnutrition (Chronic) Allergies ciprofloxacin [From Cipro] Adverse Reaction (Verified 08/18/17 14:29) FELL FLAT ON MY FACE PT STATES MAKES ME FALL DOWN Home Medications: Ambulatory Orders Medication Instructions Recorded Baclofen [Baclofen] 10 mg PO BID PRN 08/19/17 Diltiazem HCl [Diltiazem 24Hr ER] 240 mg PO DAILY 08/19/17 Gabapentin [Neurontin] 800 mg PO TID 08/19/17 Lisinopril [Lisinopril] 20 mg PO DAILY 08/19/17 Surgical History: TURP Smoking Status: Current every day smoker Tobacco Use: Cigarettes Alcohol: Heavy Drugs: None - *Family History Maternal History Items: No pertinent history, - - No heart disease Review of Systems Constitutional: Reports: Weakness, Fatigue. Denies: Chills, Fever Cardiovascular: Reports: Chest Pain. Denies: Claudication Respiratory: Denies: Shortness of Breath Gastrointestinal: Denies: Nausea, Vomiting Genitourinary: Reports: Incontinence Musculoskeletal: Denies: Foot Pain, Leg Pain Skin: Reports: Skin Changes, Wounds Neurological: Reports: Numbness, Tingling Psychiatric: Reports: Anxiety VTE Information - Inpt Only VTE Present on Admission: No VTE Mechan Device Prophylaxis: SCD's VTE Pharm Prophylaxis ordered?: Yes Patient Problems: Active and Suspected Problems Encephalopathy (Acute) Chest pain (Acute) Anxiety (Acute) Alcohol withdrawal (Acute) - Physical Exam General: Alert, Oriented x3, Cooperative HEENT: Atraumatic Extremities: No cyanosis, Capillary Refill Less than 3 Seconds - Less than 3 seconds to all digits bilateral foot, No Calf Tenderness - Negative Dontae and Ram sign bilateral, Diminished Peripheral Pulses - 2 out of 4 palpable DP pulses and 1 out of 4 PT pulses bilateral, Edema Skin: Ulcer/ Wound - No purulence on expression or streaking. There is an odor and there is devitalized fibrous tissue with nonviable tendon exposed and probed to bone to the dorsal proximal interphalangeal joint of the right second toe (pre-debridement measurement 1.1 x 1.0 x 0.2 cm, post debridement measurement 1.2 x 1.1 x 0.2 cm ; devitalized tendon was excised ) with a discolored phalanx head that is cross. There is also positive probe to bone on hallux at the dorsal medial aspect of the interphalangeal joint (pre-debridement measurement (8 x 9 x 1 mm pre-debridement, 9 x 10 x 1 mm post debridement). There is eschar fibrous and granular base wound that does not have probed the bone to the distal right hallux (1.5 x 1.4 x 0.1 cm pre-debridement, 1.5 x 1.5 x 0.1 post debridement measurement), - - The skin is atrophic and without hair Musculoskeletal: No Tenderness to Palpation of Joints or Extremities, Muscle Wasting, - - Compartments are lower extremity remain soft bilateral. Dorsal contraction of lesser toes noted and contracture of the right hallux is also noted. These are all reducible. No crepitus on palpation or bogginess on palpation at the wound site right foot. Active range of motion digits ?10. 5 out of 5 ankle muscle strength in all directions bilateral lower extremities. Neurological: - - Lack of epicritic sensation light touch bilateral lower extremities consistent with his neuropathic status Psych/Mental Status: Normal Affect, Appropriate Vital Signs Temp Pulse Resp BP Pulse Ox 98.5 F 85 16 118/74 94 08/20/17 03:15 08/20/17 03:15 08/20/17 03:15 08/20/17 03:15 08/20/17 07:42 Oxygen Delivery Method Room Air Weight: 98.5 kg Body Mass Index (BMI) 27.1 Intake and Output for Last 24 Hours 08/18/17 08/19/17 08/20/17 23:59 23:59 23:59 Intake Total 1919 1254 / 1254 Balance 1919 1254 / 1254 Laboratory Tests Past 24 Hrs 08/19/17 08/19/17 08/19/17 05:32 05:32 05:32 WBC RBC Hgb Hct MCV MCH MCHC RDW RDW Differential Plt Count MPV Immature Gran % (Auto) Neut % (Auto) Lymph % (Auto) [place] % (Auto) Eos % (Auto) Baso % (Auto) Absolute Neuts (auto) Absolute Lymphs (auto) Total Counted ESR 15 Sodium Potassium Chloride Carbon Dioxide Anion Gap BUN Creatinine Estim Creat Clear Calc Est GFR (MDRD) Af Amer Est GFR (MDRD) Non-Af BUN/Creatinine Ratio Glucose Calcium Phosphorus 2.9 Magnesium 1.9 Total Bilirubin AST ALT Alkaline Phosphatase C-React Prot Ext Range C-React Prot High Sens 1.92 Total Protein Albumin Globulin Albumin/Globulin Ratio 08/20/17 08/20/17 08/20/17 05:45 05:45 05:45 WBC 3.0 L RBC 3.92 L Hgb 12.3 L Hct 37.0 L MCV 94.4 H MCH 31.4 MCHC 33.2 RDW 14.9 H RDW Differential 50.4 H Plt Count 154 MPV 10.8 Immature Gran % (Auto) 0.300 Neut % (Auto) 57.0 Lymph % (Auto) 25.8 [place] % (Auto) 12.9 H Eos % (Auto) 1.7 Baso % (Auto) 2.3 H Absolute Neuts (auto) 1.7 L Absolute Lymphs (auto) 0.78 L Total Counted Not Reportable ESR 6 Sodium 141 Potassium 3.2 L Chloride 105 Carbon Dioxide 28.0 Anion Gap 8 BUN 12 Creatinine 0.62 L Estim Creat Clear Calc 151.43 Est GFR (MDRD) Af Amer 169 Est GFR (MDRD) Non-Af 140 BUN/Creatinine Ratio 19.3 Glucose 111 H Calcium 8.2 L Phosphorus Magnesium Total Bilirubin 0.40 AST 59 H ALT 83 H Alkaline Phosphatase 93 C-React Prot Ext Range Pending C-React Prot High Sens Total Protein 5.6 L Albumin 2.7 L Globulin 2.9 Albumin/Globulin Ratio 0.9 Assessment/Plan Active and Suspected Problems Encephalopathy (Acute) Chest pain (Acute) Anxiety (Acute) Alcohol withdrawal (Acute) Right second toe ulcer with exposed devitalized tendon bone; osteomyelitis is suspected Right hallux ulcer with at least fat layer exposed and positive probe to bone Infection right foot Hammer toe right foot Malnutrition Other comorbidities including alcoholic encephalopathy, alcohol abuse, and anxiety I reviewed and discussed his case today. His x-rays were reviewed and did not demonstrate any soft tissue emphysema, acute fracture dislocation, or distinct osseous destruction adjacent to the ulcer sites. It is difficult to see the distal digits due to his hammertoe superimposed deformities from the contracted digits. His labs are reviewed and he has a white blood cell count was 4.2, sedimentation rate 15, C-reactive protein 1.92. Infectious disease is on consultation and input will be greatly appreciated. Cultures were taken he was started on vancomycin and Zosyn his MRI for this morning was ordered and the results and tests are pending. Pending further workup this patient understands wound care with antibiotics versus surgical resection of possible infected bone including possible amputation are treatment options. His ulcer sites were excisionally debrided today including a fat layer to the right hallux and including the tendon layer to the right second toe. This was performed with a pickup and a 15 blade. The wound measurements are noted in the physical exam section. Pressure was applied to maintain hemostasis. He tolerated this well and local anesthetic was not necessary due to his neuropathy. The wounds were dressed with Betadine soaked gauze and were further secured in place with Noemí. He was advised to keep pressure off of this site by wearing a surgical shoe; this was ordered. I recommend nutritional improvement including Rafi supplementation to optimize healing. Medical management, alcohol withdrawal protocol, DVT prophylaxis, and pain management per primary team is appreciated. I will continue to follow him closely while in house and will further develop his plan after review the MRI. Thank you very much for the consultation. Please not hesitate to call if you have any questions. Erika Rodríguez DPM [facility] [phone]
[2017-08-20 08:14] LABS: CRP < 2.90 mg/L (0.0-3.0)
--- NOTE | 2017-08-20 08:44 | PCM.PN.HOSP ---
Patient Problems: Active and Suspected Problems Encephalopathy (Acute) Chest pain (Acute) Anxiety (Acute) Alcohol withdrawal (Acute) Subjective: Patient overnight with no acute events per self and per nursing report. This morning he is more alert and more able to give history and does confirm that right great and second toe wounds were present to the day prior to his presentation but is not sure when they occurred secondary to inebriated status. Notes that secondary to his neuropathy he sometimes does not realize he injures himself and does walk barefoot. He states that his withdrawal symptoms have markedly improved and he slept well. He denies any further chest discomfort. Patient denies fevers, chills, nausea, emesis, abdominal pain, chest pain or dyspnea. Objective: Physical Examination: General: awake, alert, oriented x 3 and cooperative, seated upright in bed in no apparent distress. Skin: normal color, turgor, no icterus, cyanosis except right 2nd toe wound, foul-smelling but no purulent draining, noted fibrous rough tissue and tendon exposed with ability to probe to the bone (1.1 x 1.0 x 0.2 cm) and discolored phalanx head that is cross in appearance in addition to 1st great toe wound with eschar, fibrous and glandular base with inability to probe to the bone with atrophic skin (1.5 x 1.4 x 0.1 cm) HEENT: AT/NC, EOMI, PERRLA, improved MMM. Lungs: CTA bilaterally, moderate effort, mild decrease BL bases, no rales, ronchi or wheezing. Heart: Regular rate and rhythm; no gallop, rub audible. Abdomen: soft, overweight, NTTP, ND, normal BS, no HSM. Extremities: no cyanosis, clubbing, see skin. Neurological: patient awake, alert, oriented x 3; cognitive function intact; pupils equally reactive to light and accomodation; cranial nerves II-XII grossly normal, moving all 4 extremities, no focal deficits, strength improving, moderately globally decreased. Psychiatric: affect appears normal, no acute evidence of depressive or anxiety feelings. Vitals/I&O's: Vital Signs Temp Pulse Resp BP Pulse Ox 98.5 F 85 16 118/74 94 08/20/17 03:15 08/20/17 03:15 08/20/17 03:15 08/20/17 03:15 08/20/17 07:42 Oxygen Delivery Method Room Air Weight: 217 lb 2.485 oz Body Mass Index (BMI) 27.1 Intake and Output for Last 24 Hours 08/18/17 08/19/17 08/20/17 23:59 23:59 23:59 Intake Total 1919 1254 / 1254 Balance 1919 1254 / 1254 Laboratory Results 08/19/17 05:32: ESR 15 08/19/17 05:32: C-React Prot High Sens 1.92 08/20/17 05:45: Sodium 141, Potassium 3.2 L, Chloride 105, Carbon Dioxide 28.0, Anion Gap 8, BUN 12, Creatinine 0.62 L, Estim Creat Clear Calc 151.43, Est GFR (MDRD) Af Amer 169, Est GFR (MDRD) Non-Af 140, BUN/Creatinine Ratio 19.3, Glucose 111 H, Calcium 8.2 L, Total Bilirubin 0.40, AST 59 H, ALT 83 H, Alkaline Phosphatase 93, Total Protein 5.6 L, Albumin 2.7 L, Globulin 2.9, Albumin/Globulin Ratio 0.9 08/20/17 05:45: WBC 3.0 L, RBC 3.92 L, Hgb 12.3 L, Hct 37.0 L, MCV 94.4 H, MCH 31.4, MCHC 33.2, RDW 14.9 H, RDW Differential 50.4 H, Plt Count 154, MPV 10.8, Immature Gran % (Auto) 0.300, Neut % (Auto) 57.0, Lymph % (Auto) 25.8, [place] % (Auto) 12.9 H, Eos % (Auto) 1.7, Baso % (Auto) 2.3 H, Absolute Neuts (auto) 1.7 L, Absolute Lymphs (auto) 0.78 L, Total Counted Not Reportable, ESR 6 08/20/17 05:45: C-React Prot Ext Range < 2.90 Current Medications Acetaminophen (Tylenol) 650 mg PO Q6H PRN PRN PRN Reason: Mild Pain (1-3)/Temp > 100.7 F Al Hydroxide/Mg Hydroxide (Mylanta Ii) 30 ml PO Q6H PRN PRN PRN Reason: dyspesia Aspirin (Aspirin, Baby) 81 mg PO DAILY@0800 [facility] Last Admin: 08/19/17 09:18 Dose: 81 mg Baclofen (Lioresal) 10 mg PO BID PRN PRN PRN Reason: PAIN Last Admin: 08/19/17 22:11 Dose: 10 mg Bisacodyl (Dulcolax) 10 mg RECTAL DAILY PRN PRN Reason: Constipation Clonidine (Catapres) 0.1 mg PO Q4 [facility] Last Admin: 08/20/17 05:41 Dose: Not Given Dicyclomine HCl (Bentyl) 20 mg PO Q6H PRN PRN PRN Reason: abdominal discomfort Last Admin: 08/19/17 07:22 Dose: 20 mg Diltiazem HCl (Cardizem Cd) 240 mg PO DAILY [facility] Last Admin: 08/19/17 16:15 Dose: 240 mg Enoxaparin Sodium (Lovenox) 40 mg SC DAILY@1000 [facility] Last Admin: 08/19/17 13:51 Dose: 40 mg Famotidine (Pepcid) 20 mg PO BID [facility] Last Admin: 08/19/17 22:11 Dose: 20 mg Folic Acid (Folic Acid) 1 mg PO DAILY@0800 [facility] Last Admin: 08/19/17 13:50 Dose: 1 mg Gabapentin (Neurontin) 800 mg PO TIDCM [facility] Last Admin: 08/19/17 16:15 Dose: 800 mg Hydralazine HCl (Apresoline Iv) 10 mg IV Q4H PRN PRN PRN Reason: SBP > 160 Hydroxyzine Pamoate (Vistaril Pamoate Capsule) 50 mg PO Q6H PRN PRN PRN Reason: Mild Anxiety (score 1/3) Last Admin: 08/20/17 05:45 Dose: 50 mg Piperacillin Sod/Tazobactam Sod (Zosyn) 3.375 gm in 50 mls @ 12.5 mls/hr IV Q8 [facility] Last Admin: 08/20/17 05:50 Dose: 12.5 mls/hr Vancomycin HCl 1,500 mg/ (Sodium Chloride) 530 mls @ 250 mls/hr IV Q12H [facility] Last Admin: 08/19/17 19:59 Dose: 250 mls/hr Sodium Chloride () 250 mls @ 15 mls/hr IV .[id number] PRN PRN Reason: SALINE FLUSH Last Admin: 08/20/17 05:42 Dose: 15 mls/hr Ibuprofen (Motrin) 600 mg PO Q8H PRN PRN PRN Reason: Mild-Moderate Pain (1-5/10) Last Admin: 08/19/17 16:14 Dose: 600 mg Lisinopril (Zestril) 20 mg PO DAILY [facility] Last Admin: 08/19/17 16:15 Dose: 20 mg Loperamide HCl (Imodium) 2 mg PO Q2H PRN PRN PRN Reason: Diarrhea Last Admin: 08/19/17 13:58 Dose: 2 mg Lorazepam (Ativan) 1 mg PO Q6H [facility] PRN Reason: Taper Stop: 08/21/17 18:14 Last Admin: 08/20/17 03:20 Dose: 1 mg Magnesium Hydroxide (Milk Of Magnesia) 30 ml PO DAILY PRN PRN PRN Reason: Constipation Methocarbamol (Methocarbamol) 750 mg PO Q6H PRN PRN PRN Reason: Muscle Aches Last Admin: 08/20/17 05:45 Dose: 750 mg Morphine Sulfate () 1 - 2 mg IV Q4H PRN PRN PRN Reason: chest pain Multivitamins/Minerals ([facility]) [facility] Last Admin: 08/19/17 13:52 Dose: 1 tablet Nicotine (Nicoderm Cq (Pbkc)) 21 mg TRANSDERM. DAILY [facility] Last Admin: 08/19/17 16:04 Dose: 21 mg Nicotine Polacrilex (Rugby Nicotine (Pbkc)) 4 mg PO Q2H PRN PRN PRN Reason: Nicotine Craving Last Admin: 08/19/17 22:11 Dose: 4 mg Nitroglycerin (Nitrostat) 0.4 mg SUBLINGUAL Q5M PRN PRN Reason: CHEST PAIN Nutritional Formula (Rafi - [place] Flavor) 1 packet PO BIDCM [facility] Nutritional Formula (Lactose Free) (Ensure Clear) 120 ml PO 4X/DAY [facility] Last Admin: 08/19/17 22:06 Dose: Not Given Ondansetron HCl (Zofran) 4 mg IV Q8H PRN PRN PRN Reason: NAUSEA Ondansetron HCl (Zofran Odt) 4 mg PO Q6H PRN PRN PRN Reason: NAUSEA Pramipexole Dihydrochloride (Mirapex) 0.25 mg PO Q12H PRN PRN PRN Reason: Restless legs Quetiapine Fumarate (Seroquel) 25 mg PO Q6H PRN PRN PRN Reason: Moderate Anxiety (score 2/3) Last Admin: 08/20/17 03:20 Dose: 25 mg Senna (Senokot) 1 tablet PO QHS PRN PRN Reason: Constipation Sodium Chloride () 5 - 30 ml IV UD PRN PRN Reason: SALINE FLUSH Last Admin: 08/19/17 19:44 Dose: 10 ml Thiamine HCl (Vitamin B1) 100 mg PO DAILYCM [facility] Last Admin: 08/19/17 13:50 Dose: 100 mg Trazodone HCl (Desyrel) 50 mg PO QHS [facility] Last Admin: 08/19/17 22:05 Dose: Not Given Medical Necessity - Tobacco Use Smoking Status: Current every day smoker Tobacco Use: Cigarettes Assessment/Plan Active and Suspected Problems Encephalopathy (Acute) Chest pain (Acute) Anxiety (Acute) Alcohol withdrawal (Acute) The patient is a 62 y/o M w/ PMHx: HTN, Hx Prostate CA, Chronic Back Pain, Urinary Incontinence, Anxiety and Depression, EtOH Abuse who presents to the [facility] ED on 08/18/17, brought in per his Islam with confusion and onset midsternal chest pain ongoing for several months with recent decision for sobriety with acute EtOH withdrawal sxs. (1) Acute EtOH Withdrawal: Admitted to [place] on telemetry, routine labs including CBC, CMP, urine for drug screen, urinalysis, initiated and continued on [facility] service protocol with taper course of ativan, Given ongoing sxs and fatigue will assure addition of as needed Seroquel, Catapres, Bentyl, Vistaril, antiemetics, Tylenol. Once patient clinically improved and completion of taper nearing will plan [facility] assistance for transition to next level of rehabilitation care including encouragement of therapy given underlying anxiety and depression. Mag, phos normal levels. Maintain on CIWA protocol. Maintain on MVI, thiamine, folic acid. (2) Encephalopathy: Likely secondary to #1, resolved, although possibly chronic component secondary to prolonged EtOH Abuse and exposure, CT Head without acute findings, UA unremarkable, CXR not performed but unremarkable exam per admission ED/physician, treating #4 as noted. (3) Chest Pain: Suspected more secondary to anxiety. No ongoing chest pain overnight following admission. EKG in ED no acute findings, initial trop normal ?1. Maintained on a monitored bed to assure no acute myocardial infarction with serial cardiac enzymes and EKGs which remained unremarkable. 08/19/17 AM nuclear stress testing unremarkable. FLP not marked appearing. Mag and phos normal level. (4) Infected Right Foot Wounds w/ R 2nd Toe Ulcer w/ Suspected Osteomyelitis and R Hallus Ulcer w/ Possible Osteomyelitis: Present on admission, unclear injury timeline as noted ongoing EtOH binge x 3 weeks with likely no clothing, including sock change during that time. Wound Cx, MRSA Wound pending. Maintained on IV Vanc and Zosyn, plain film with concern for osteo, pending MRI Foot, requested Podiatry consultation and ID consultation as likely long-term abx needed. CRP, ESR pending. Trend CBC, not marked upon presentation. (5) Abnormal Liver Enzymes: Admission AST/ALT 158/158, Alk phos 122, likely secondary to his EtOH Abuse and recent binge, improved, 08/20/17 AST/ALT 59/83, repeat CMP in AM. (5) Tobacco Abuse: Encouraged cessation, inpatient consultation per RT, NR if desired. (6) Confirmed HTN history: Maintain on home ACEI, Cardizem, PRN hydralazine. (7) Anxiety and Depression: Not on regimen, would benefit from outpatient therapy and likely initiation SSRI. [facility] to assist in set-up. (8) GERD: Famotidine. (9) Chronic Moderate to Severe Protein-Calorie Malnutrition: Evidenced by habitus, muscle and fat loss, secondary to co-morbidities and EtOH Abuse, maintain on supplementations, nutrition consulted. (10) DVT Prophylaxis: SCDs, lovenox. Code Visit Inpatient E&M: 08610 Subs Hosp L3
[2017-08-20] MEDS: Thiamine Hydrochloride 100 MG Tablet PO (08:47)
[2017-08-20] MEDS: Folic Acid 1 MG Tablet PO (08:47)
[2017-08-20] MEDS: Aspirin 81 MG TAB.CHEW PO (08:47)
[2017-08-20] MEDS: Multivitamins,Ther W-Minerals Tablet 1 TABLET PO (08:47)
[2017-08-20] MEDS: Gabapentin 800 MG Tablet PO ×3 (08:47→17:29)
--- NOTE | 2017-08-20 08:54 | PN_ITS ---
Patient Problems: Active and Suspected Problems Encephalopathy (Acute) Chest pain (Acute) Anxiety (Acute) Alcohol withdrawal (Acute) Subjective: Patient overnight with no acute events per self and per nursing report. This morning he is more alert and more able to give history and does confirm that right great and second toe wounds were present to the day prior to his presentation but is not sure when they occurred secondary to inebriated status. Notes that secondary to his neuropathy he sometimes does not realize he injures himself and does walk barefoot. He states that his withdrawal symptoms have markedly improved and he slept well. He denies any further chest discomfort. Patient denies fevers, chills, nausea, emesis, abdominal pain, chest pain or dyspnea. Objective: Physical Examination: General: awake, alert, oriented x 3 and cooperative, seated upright in bed in no apparent distress. Skin: normal color, turgor, no icterus, cyanosis except right 2nd toe wound, foul-smelling but no purulent draining, noted fibrous rough tissue and tendon exposed with ability to probe to the bone (1.1 x 1.0 x 0.2 cm) and discolored phalanx head that is cross in appearance in addition to 1st great toe wound with eschar, fibrous and glandular base with inability to probe to the bone with atrophic skin (1.5 x 1.4 x 0.1 cm) HEENT: AT/NC, EOMI, PERRLA, improved MMM. Lungs: CTA bilaterally, moderate effort, mild decrease BL bases, no rales, ronchi or wheezing. Heart: Regular rate and rhythm; no gallop, rub audible. Abdomen: soft, overweight, NTTP, ND, normal BS, no HSM. Extremities: no cyanosis, clubbing, see skin. Neurological: patient awake, alert, oriented x 3; cognitive function intact; pupils equally reactive to light and accomodation; cranial nerves II-XII grossly normal, moving all 4 extremities, no focal deficits, strength improving , moderately globally decreased. Psychiatric: affect appears normal, no acute evidence of depressive or anxiety feelings. Vitals/I&O's: Vital Signs Temp Pulse Resp BP Pulse Ox 98.5 F 85 16 118/74 94 08/20/17 03:15 08/20/17 03:15 08/20/17 03:15 08/20/17 03:15 08/20/17 07:42 Oxygen Delivery Method Room Air Weight: 217 lb 2.485 oz Body Mass Index (BMI) 27.1 Intake and Output for Last 24 Hours 08/18/17 08/19/17 08/20/17 23:59 23:59 23:59 Intake Total 1919 1254 / 1254 Balance 1919 1254 / 1254 Laboratory Results 08/19/17 05:32: ESR 15 08/19/17 05:32: C-React Prot High Sens 1.92 08/20/17 05:45: Sodium 141, Potassium 3.2 L, Chloride 105, Carbon Dioxide 28.0, Anion Gap 8, BUN 12, Creatinine 0.62 L, Estim Creat Clear Calc 151.43, Est GFR ( MDRD) Af Amer 169, Est GFR (MDRD) Non-Af 140, BUN/Creatinine Ratio 19.3, Glucose 111 H, Calcium 8.2 L, Total Bilirubin 0.40, AST 59 H, ALT 83 H, Alkaline Phosphatase 93, Total Protein 5.6 L, Albumin 2.7 L, Globulin 2.9, Albumin/Globulin Ratio 0.9 08/20/17 05:45: WBC 3.0 L, RBC 3.92 L, Hgb 12.3 L, Hct 37.0 L, MCV 94.4 H, MCH 31.4, MCHC 33.2, RDW 14.9 H, RDW Differential 50.4 H, Plt Count 154, MPV 10.8, Immature Gran % (Auto) 0.300, Neut % (Auto) 57.0, Lymph % (Auto) 25.8, [place] % ( Auto) 12.9 H, Eos % (Auto) 1.7, Baso % (Auto) 2.3 H, Absolute Neuts (auto) 1.7 L , Absolute Lymphs (auto) 0.78 L, Total Counted Not Reportable, ESR 6 08/20/17 05:45: C-React Prot Ext Range < 2.90 Current Medications Acetaminophen (Tylenol) 650 mg PO Q6H PRN PRN PRN Reason: Mild Pain (1-3)/Temp > 100.7 F Al Hydroxide/Mg Hydroxide (Mylanta Ii) 30 ml PO Q6H PRN PRN PRN Reason: dyspesia Aspirin (Aspirin, Baby) 81 mg PO DAILY@0800 [facility] Last Admin: 08/19/17 09:18 Dose: 81 mg Baclofen (Lioresal) 10 mg PO BID PRN PRN PRN Reason: PAIN Last Admin: 08/19/17 22:11 Dose: 10 mg Bisacodyl (Dulcolax) 10 mg RECTAL DAILY PRN PRN Reason: Constipation Clonidine (Catapres) 0.[address] [facility] Last Admin: 08/20/17 05:41 Dose: Not Given Dicyclomine HCl (Bentyl) 20 mg PO Q6H PRN PRN PRN Reason: abdominal discomfort Last Admin: 08/19/17 07:22 Dose: 20 mg Diltiazem HCl (Cardizem Cd) [address] [facility] Last Admin: 08/19/17 16:15 Dose: 240 mg Enoxaparin Sodium (Lovenox) 40 mg SC DAILY@1000 [facility] Last Admin: 08/19/17 13:51 Dose: 40 mg Famotidine (Pepcid) [address] [facility] Last Admin: 08/19/17 22:11 Dose: 20 mg Folic Acid (Folic Acid) 1 mg PO DAILY@0800 [facility] Last Admin: 08/19/17 13:50 Dose: 1 mg Gabapentin (Neurontin) [address] [facility] Last Admin: 08/19/17 16:15 Dose: 800 mg Hydralazine HCl (Apresoline Iv) 10 mg IV Q4H PRN PRN PRN Reason: SBP > 160 Hydroxyzine Pamoate (Vistaril Pamoate Capsule) 50 mg PO Q6H PRN PRN PRN Reason: Mild Anxiety (score 1/3) Last Admin: 08/20/17 05:45 Dose: 50 mg Piperacillin Sod/Tazobactam Sod (Zosyn) 3.375 gm in 50 mls @ 12.5 mls/hr IV Q8 [facility] Last Admin: 08/20/17 05:50 Dose: 12.5 mls/hr Vancomycin HCl 1,500 mg/ (Sodium Chloride) 530 mls @ 250 mls/hr IV Q12H [facility] Last Admin: 08/19/17 19:59 Dose: 250 mls/hr Sodium Chloride () 250 mls @ 15 mls/hr IV .[id number] PRN PRN Reason: SALINE FLUSH Last Admin: 08/20/17 05:42 Dose: 15 mls/hr Ibuprofen (Motrin) 600 mg PO Q8H PRN PRN PRN Reason: Mild-Moderate Pain (1-5/10) Last Admin: 08/19/17 16:14 Dose: 600 mg Lisinopril (Zestril) [address] [facility] Last Admin: 08/19/17 16:15 Dose: 20 mg Loperamide HCl (Imodium) 2 mg PO Q2H PRN PRN PRN Reason: Diarrhea Last Admin: 08/19/17 13:58 Dose: 2 mg Lorazepam (Ativan) [address] [facility] PRN Reason: Taper Stop: 08/21/17 18:14 Last Admin: 08/20/17 03:20 Dose: 1 mg Magnesium Hydroxide (Milk Of Magnesia) 30 ml PO DAILY PRN PRN PRN Reason: Constipation Methocarbamol (Methocarbamol) 750 mg PO Q6H PRN PRN PRN Reason: Muscle Aches Last Admin: 08/20/17 05:45 Dose: 750 mg Morphine Sulfate () 1 - 2 mg IV Q4H PRN PRN PRN Reason: chest pain Multivitamins/Minerals ([facility]) [facility] Last Admin: 08/19/17 13:52 Dose: 1 tablet Nicotine (Nicoderm Cq (Pbkc)) [address] [facility] Last Admin: 08/19/17 16:04 Dose: 21 mg Nicotine Polacrilex ([place]ugby Nicotine (Pbkc)) 4 mg PO Q2H PRN PRN PRN Reason: Nicotine Craving Last Admin: 08/19/17 22:11 Dose: 4 mg Nitroglycerin (Nitrostat) 0.4 mg SUBLINGUAL Q5M PRN PRN Reason: CHEST PAIN Nutritional Formula (Rafi - [place] Flavor) [address] [facility] Nutritional Formula (Lactose Free) (Ensure Clear) 120 ml PO 4X/DAY [facility] Last Admin: 08/19/17 22:06 Dose: Not Given Ondansetron HCl (Zofran) 4 mg IV Q8H PRN PRN PRN Reason: NAUSEA Ondansetron HCl (Zofran Odt) 4 mg PO Q6H PRN PRN PRN Reason: NAUSEA Pramipexole Dihydrochloride (Mirapex) 0.25 mg PO Q12H PRN PRN PRN Reason: Restless legs Quetiapine Fumarate (Seroquel) 25 mg PO Q6H PRN PRN PRN Reason: Moderate Anxiety (score 2/3) Last Admin: 08/20/17 03:20 Dose: 25 mg Senna (Senokot) 1 tablet PO QHS PRN PRN Reason: Constipation Sodium Chloride () 5 - 30 ml IV UD PRN PRN Reason: SALINE FLUSH Last Admin: 08/19/17 19:44 Dose: 10 ml Thiamine HCl (Vitamin B1) [address] [facility] Last Admin: 08/19/17 13:50 Dose: 100 mg Trazodone HCl (Desyrel) [address] [facility] Last Admin: 08/19/17 22:05 Dose: Not Given Medical Necessity - Tobacco Use Smoking Status: Current every day smoker Tobacco Use: Cigarettes Assessment/Plan Active and Suspected Problems Encephalopathy (Acute) Chest pain (Acute) Anxiety (Acute) Alcohol withdrawal (Acute) The patient is a 62 y/o M w/ PMHx: HTN, Hx Prostate CA, Chronic Back Pain, Urinary Incontinence, Anxiety and Depression, EtOH Abuse who presents to the [facility] ED on 08/18/17, brought in per his [employer] with confusion and onset midsternal chest pain ongoing for several months with recent decision for sobriety with acute EtOH withdrawal sxs. (1) Acute EtOH Withdrawal: Admitted to [place] on telemetry, routine labs including CBC, CMP, urine for drug screen, urinalysis, initiated and continued on [facility] service protocol with taper course of ativan, Given ongoing sxs and fatigue will assure addition of as needed Seroquel, Catapres, Bentyl, Vistaril, antiemetics, Tylenol. Once patient clinically improved and completion of taper nearing will plan [facility] assistance for transition to next level of rehabilitation care including encouragement of therapy given underlying anxiety and depression. Mag, phos normal levels. Maintain on CIWA protocol. Maintain on MVI, thiamine, folic acid. (2) Encephalopathy: Likely secondary to #1, resolved, although possibly chronic component secondary to prolonged EtOH Abuse and exposure, CT Head without acute findings, UA unremarkable, CXR not performed but unremarkable exam per admission ED/physician, treating #4 as noted. (3) Chest Pain: Suspected more secondary to anxiety. No ongoing chest pain overnight following admission. EKG in ED no acute findings, initial trop normal ?1. Maintained on a monitored bed to assure no acute myocardial infarction with serial cardiac enzymes and EKGs which remained unremarkable. 08/19/17 AM nuclear stress testing unremarkable. FLP not marked appearing. Mag and phos normal level. (4) Infected Right Foot Wounds w/ R 2nd Toe Ulcer w/ Suspected Osteomyelitis and R Hallus Ulcer w/ Possible Osteomyelitis: Present on admission, unclear injury timeline as noted ongoing EtOH binge x 3 weeks with likely no clothing, including sock change during that time. Wound Cx, MRSA Wound pending. Maintained on IV Vanc and Zosyn, plain film with concern for osteo, pending MRI Foot, requested Podiatry consultation and ID consultation as likely long-term abx needed. CRP, ESR pending. Trend CBC, not marked upon presentation. (5) Abnormal Liver Enzymes: Admission AST/ALT 158/158, Alk phos 122, likely secondary to his EtOH Abuse and recent binge, improved, 08/20/17 AST/ALT 59/83, repeat CMP in AM. (5) Tobacco Abuse: Encouraged cessation, inpatient consultation per RT, NR if desired. (6) Confirmed HTN history: Maintain on home ACEI, Cardizem, PRN hydralazine. (7) Anxiety and Depression: Not on regimen, would benefit from outpatient therapy and likely initiation SSRI. [facility] to assist in set-up. (8) GERD: Famotidine. (9) Chronic Moderate to Severe Protein-Calorie Malnutrition: Evidenced by habitus, muscle and fat loss, secondary to co-morbidities and EtOH Abuse, maintain on supplementations, nutrition consulted. (10) DVT Prophylaxis: SCDs, lovenox. Code Visit Inpatient E&M: 22997 Subs Hosp L3
[2017-08-20] MEDS: Loperamide 2 MG Capsule PO ×2 (09:17→19:11)
--- NOTE | 2017-08-20 09:29 | NURSING ---
infectious disease notified of consult - unable to put in info at this time - lock out of assessment no computer
[2017-08-20] MEDS: Enoxaparin 40 MG/0.4 ML Syringe SC (11:02)
[2017-08-20] MEDS: Famotidine 20 MG Tablet PO ×2 (11:03→21:44)
--- NOTE | 2017-08-20 12:13 | CON.PCM_ITS ---
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 Reason for Consult: osteo Consulted by: Dr. Davalos History of Present Illness: The patient is a 62 year old M with h/o etoh abuse and peripheral neuropathy who presented with confusion after etoh binge. Reports drinking 6-12 24oz beers daily for past few weeks. Last drink was yesterday AM. Got some shakes. Does not have feeling in his feet, so hadn't noticed wound on R foot. Reports some odor and drainage. Had MRSA abscess about 10 years ago. No fever or chills, no n/v/d. Full ROS performed and neg except as noted above. - Medical History Past Medical History (Chronic Problems): Chronic Problems Urinary incontinence with continuous leakage (Chronic) Chronic back pain (Chronic) Ulcer of right foot with necrosis of bone (Chronic) Ulcer of right foot with fat layer exposed (Chronic) Hammer toe of right foot (Chronic) Neuropathy (Chronic) Malnutrition (Chronic) Allergies/Adverse Reactions: Allergies ciprofloxacin [From Cipro] Adverse Reaction (Verified 08/18/17 14:29) FELL FLAT ON MY FACE PT STATES MAKES ME FALL DOWN Home Medications: Ambulatory Orders Medication Instructions Recorded Baclofen [Baclofen] 10 mg PO BID PRN 08/19/17 Diltiazem HCl [Diltiazem 24Hr ER] 240 mg PO DAILY 08/19/17 Gabapentin [Neurontin] 800 mg PO TID 08/19/17 Lisinopril [Lisinopril] 20 mg PO DAILY 08/19/17 - Social History SMOKING STATUS:: Current every day smoker Vital Signs Temp Pulse Resp BP Pulse Ox 99.0 F 101 H 18 86/58 L 97 08/20/17 08:57 08/20/17 08:57 08/20/17 08:57 08/20/17 08:57 08/20/17 08:57 Oxygen Delivery Method Room Air Weight: 98.5 kg Body Mass Index (BMI) 27.1 Microbiology Past 72 Hours 08/19/17 19:05 Gram Stain - Final Abs - Toe Wound Culture - Preliminary Gram negative tres 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 Tests Past 24 Hrs 08/19/17 08/19/17 08/20/17 05:32 05:32 05:45 WBC RBC Hgb Hct MCV MCH MCHC RDW RDW Differential Plt Count MPV Immature Gran % (Auto) Neut % (Auto) Lymph % (Auto) Cass % (Auto) Eos % (Auto) Baso % (Auto) Absolute Neuts (auto) Absolute Lymphs (auto) Total Counted ESR 15 Sodium 141 Potassium 3.2 L Chloride 105 Carbon Dioxide 28.0 Anion Gap 8 BUN 12 Creatinine 0.62 L Estim Creat Clear Calc 151.43 Est GFR (MDRD) Af Amer 169 Est GFR (MDRD) Non-Af 140 BUN/Creatinine Ratio 19.3 Glucose 111 H Calcium 8.2 L Total Bilirubin 0.40 AST 59 H ALT 83 H Alkaline Phosphatase 93 C-React Prot Ext Range C-React Prot High Sens 1.92 Total Protein 5.6 L Albumin 2.7 L Globulin 2.9 Albumin/Globulin Ratio 0.9 08/20/17 08/20/17 05:45 05:45 WBC 3.0 L RBC 3.92 L Hgb 12.3 L Hct 37.0 L MCV 94.4 H MCH 31.4 MCHC 33.2 RDW 14.9 H RDW Differential 50.4 H Plt Count 154 MPV 10.8 Immature Gran % (Auto) 0.300 Neut % (Auto) 57.0 Lymph % (Auto) 25.8 Cass % (Auto) 12.9 H Eos % (Auto) 1.7 Baso % (Auto) 2.3 H Absolute Neuts (auto) 1.7 L Absolute Lymphs (auto) 0.78 L Total Counted Not Reportable ESR 6 Sodium Potassium Chloride Carbon Dioxide Anion Gap BUN Creatinine Estim Creat Clear Calc Est GFR (MDRD) Af Amer Est GFR (MDRD) Non-Af BUN/Creatinine Ratio Glucose Calcium Total Bilirubin AST ALT Alkaline Phosphatase C-React Prot Ext Range < 2.90 C-React Prot High Sens Total Protein Albumin Globulin Albumin/Globulin Ratio - Other Studies Radiology: [] reviewed Other Studies: [] Route of nutrition/ use of supplements: [] Nutritional Intake: [] IV Site: [] Oneil Catheter: [] - Physical Exam General: Alert, Oriented x3, Cooperative, No apparent distress HEENT: Atraumatic, PERRLA, EOMI Neck: Supple, No Nodes Lungs: Clear to auscultation, Normal air movement Cardiovascular: Regular rate, Regular Rhythm, No murmurs Abdomen: Bowel Sounds Present, Soft, Non Tender, Non-Distended Extremities: No edema Skin: Ulcer/ Wound - R foot wrapped, some bloody drainage IV Site: Peripheral, without redness Musculoskeletal: No Tenderness to Palpation of Joints or Extremities Neurological: Cranial nerves II-XII grossly intact, - - peripheral neuropathy - Assessment/Plan Antibiotics: [] Assessment/Plan: [] Active and Suspected Problems Encephalopathy (Acute) Chest pain (Acute) Anxiety (Acute) Alcohol withdrawal (Acute) R 1st toe wound with likely underlying osteo - wound cx with GNR x2. Reports neuropathy in both feet up to mid-wood, will check B12 and folate levels as well as A1c. MRI pending. Podiatry did bedside debridement. Cont empiric vanc /zosyn. Has remote h/o MRSA. ESR was 15. Ordered mrsa pcr of wound. Etoh withdrawal - alt/ast improving. Thank you, will follow, d/w Dr. Davalos.
--- NOTE | 2017-08-20 12:22 | CASEMGMT ---
As per CM, pt may need surgery and IV antibiotics at discharge, MRI results pending. As per Nida mendes/[facility] [place], pt was living with his mother prior to this and his family has said he cannot return home. Pt's mother is in a mcfp at present after a hip fracture. SW spoke w/pt in room. Pt confirmed he cannot go home, states his mother has said cannot continue to live there. His mother told him she will not come home from the mcfp if he is still there. Pt states his mother has been there for 6 weeks. Pt states he moved in and just became a slug. He states with his mom being in the mcfp he had free reign and went crazy. Pt states going back to live w/her is not an option, states he screwed up. SW and pt discussed other options. Pt is willing to go to SNF. SW explained we will need to see what the results of the MRI are and the plan for his foot, to see if he needs surgery and/or IV antibiotics. Pt states he cannot walk, and is on disability. SW gently reminded pt that he did walk w/therapy, and though he may have not walked far and was using a cane, he did not need any help. SW explained that if pt needs IV antibiotics or surgery on his foot, this may qualify him for mcfp. SW did give pt a list of SNF's in [facility], pt would like to stay in [facility] if possible. We discussed other options if he does not need SNF, pt states he does not know what he will do. Pt states he can't go to [facility] because of his foot. MIRNA explained will come speak w/him again later today or tomorrow, once we know more medically the plan and the MRI results, and go from there. SW spoke w/Nida from [facility] [employer], other options may be explored if SNF not needed, though pt may be limited if he does need any type of medical care. Also, his insurance eliminates many options, as Medicaid is not accepted at many places. [facility] would not be able to take pt as he needs to be able to help around the house at certain facilities that are [place] based, and with his foot he may not be able to do this. MIRNA will continue to follow, will await MRI and will see what the plan will be for pt medically. DOMINICK Sapp, GUIDE TRAVEL
[2017-08-20 13:58] LABS: M R Staph aureus DNA By PCR Negative (Negative); Probe Check PASS; Specimen Processing Control PASS; Staph aureus DNA By PCR NEGATIVE (Negative)
--- NOTE | 2017-08-20 15:52 | CHAPLAIN ---
Type of Pastoral Visit _x__ Initial Visit ___ Follow-up Visit ___ On-call Visit ___ General Patient Visit ___ Spiritual Assessment ___ Family Conference ___ Bereavement ___ Rapid Response ___ Code Blue ___ Other (describe below) Pastoral Care Referral From _x__ Patient ___ Family ___ Nurse ___ Physician ___ Parts Professional ___ Delivery Driver Assistant ___ Other (describe below) Sacrament/Intervention _x__ Active listening ___ Anointing ___ Latter Day ___ Bereavement ___ Communion _x__ Lucy exploration ___ _x__ Life review _x__ Prayer ___ Reconciliation ___ Sacrament of Sick _x__ Supportive presence ___ Wedding ___ Other (describe below) Pastoral Comments patient reports that he was brought to hospital by family members who intervened after his 4 week binge with alcohol; pt says that he is now thankful for the help and is staying here willingly; pt says that he wants to be sober but admits to life long struggle with alcohol; pt says that he has a Latter Day heritage and religion background and is very open to spiritual help; pt would like to go to [facility] rehab if possible; pt says he has regrets about his life and would like for auto washer to pray for him and to return for more visits
[2017-08-21] VITALS (18 sets, daily range): BP systolic 110–142; BP diastolic 55–94; PULSE 78–97; RESP 15–18; TEMP 36.6–37.2; O2SAT 93–98
--- NOTE | 2017-08-21 | BON_PTH ---
PATIENT: TIMOTEO GUTIERREZ LOC: MS3 U#:[id number] AGE/SX: 62/M ROOM: NE316 RE08/18/[address]: Dr. Cony Mistry MD : [id number] BED: 1 DIS: 08/25/2017 SPEC #: [id number] RECD: 08/21/17 12:00 STATUS: PATSY REMragy #: [id number] JESSICA: 08/21/17 00:[address]: Erika Rodríguez DEPT: SURGICAL PATHOLOGY RECD BY: Hector Ramsay ENTERED: 08/21/17 12:03 SP TYPE: Bone OTHR DR: MD Dr. Jose Adams DO Dr. Jeanna Fascione, DPM Dr. Hal Casarez MD No Primary Care Phys Tissues: A - Bone of foot, NOS B - Bone of foot, NOS C - Toe, NOS Procedures: Decalcification bone/plaque Special Stain Group I Surgery Specimen Level III Surgery Specimen Level IV AFB Stain (control) GMS Stain (control) Comments: @ Ordering doctor for DEC edited from to @ by MELYSSA at 08/21/17 140 @ Ordering doctor for SUIII edited from to @ mandi RAGSDALE at 08/21/17 1408 @ Submitting doctor edited from to @ mandi RAGSDALE at 08/21/17 1407 HEADER OPERATION: Amputation, right toe hallux and second toe PRE-OP DIAGNOSIS: Osteomyelitis of first and second toe TISSUE SUBMITTED: A ? Right hallux clearance fragment, B ? Second toe right clearance fragment, C ? Hallux and second toe bone and soft tissue MICROSCOPIC DIAGNOSIS A. Right hallux clearance fragment: A piece of bone, negative for acute osteomyelitis. B. Second toe right clearance fragment: A piece of bone, negative for acute osteomyelitis. C. Hallux and second toe bone and soft tissue: Focal ulceration, acute inflammation and abscess formation. Underlying bone, negative for acute osteomyelitis. Special stains for acid fast bacilli and fungi are negative for organisms; matched controls are appropriate. SJ:lit 08/27/17 MICROSCOPIC DESCRIPTION Slides are reviewed. GROSS DESCRIPTION A - Received in fixative is one container labeled with the patient's name and designated right hallux clearance fragment bone. The specimen consists of a single irregular fragment of white-conti bone measuring 0.9 x 0.5 x 0.2 cm. The specimen is submitted in its entirety in one cassette after decalcification. B - Received in fixative is one container labeled with the patient's name and designated second toe right clearance fragment. The specimen consists of a single irregular fragment of white-conti bone measuring 1?x 0.8 x 0.3 cm. The specimen is submitted in its entirety in one cassette after decalcification. C - Received in fixative is one container labeled with the patient's name and designated hallux and second toe bone and soft tissue. The specimen consists of two toes. The largest fragment measures 7 x 3.5 x 2.6 cm. The smaller fragment measures 6.5 x 2 x 2 cm. The largest fragment contains portion of bone, skin, nail and soft tissue. The most distal part of the toe containing skin and soft tissue is missing. An ulcer is present on the dorsal surface measuring 1 x 0.5 x 0.2 cm. The bone and soft tissue of margin of resection are grossly unremarkable. The second toe contains a partially evulsed nailbed. An ulcer is present on the dorsal surface measuring 1.2 x 1 x 0.6 cm. The soft tissue and bone at margin of resection of the second toe likewise are grossly unremarkable. 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 ulcer from larger toe, bone underlying ulcer, 2 ? ulcer from smaller toe with bone underlying ulcer and nailbed. Both cassettes are submitted after appropriate decalcification. / AM:lit 08/21/17 More sections of bone are submitted in 3 more cassette, 3 to 5 after decalcification. TC:2 CPT: 28850, 07220 x2, 49795 x3, 09871 x2
[2017-08-21] MEDS: hydrOXYzine PAM 25 MG Capsule 50 MG PO (01:28)
[2017-08-21] MEDS: cloNIDine HCl 0.1 MG Tablet PO ×5 (01:28→22:33)
[2017-08-21] MEDS: LORazepam 1 MG Tablet PO ×2 (01:30→12:15)
[2017-08-21] MEDS: Piperacil/Tazobactam 3.375 GM/50 ML ML IV ×3 (05:58→22:34)
[2017-08-21] MEDS: 0.9% Normal Saline 1,000 ML 100 ML IV ×2 (07:30→20:11)
[2017-08-21 07:38] LABS: Absolute Lymphocyte Count 0.65 X10^3/ul (0.83-4.51); Absolute Neutrophil Count 1.9 X10^3/uL (2.0-7.7); Basophil# 0.08 X10^3/uL; Basophil% 2.5 % (0-1); Eosinophil# 0.07 X10^3/uL; Eosinophils% 2.2 % (0-5); Hematocrit 38.2 % (40-54); Hemoglobin 12.4 g/dl (13.0-16.5); Lymphocyte # 0.65 X10^3/ul (4.0); Lymphocyte % 20.4 % (19-41); Mean Corp Hgb Conc 32.5 g/gl (32-36); Mean Corpuscular Hgb 30.8 pg (27.0-32.0); Mean Platelet Vol. 10.3 fl (6.2-12.0); Monocyte# 0.48 X10^3/uL; Monocyte% 15.1 % (0-10); Neutrophil # 1.89 X10^3/uL (2.7-7.7); Neutrophil % 59.5 % (47-70); Platelet Count 160 K/mm3 (150-450); RBC Distribution Width CV 15.1 % (11.6-14.6); RBC Distribution Width SD 50.7 fl (35.1-43.9); Red Blood Count 4.02 M/mm3 (4.6-6.2); White Blood Count 3.2 K/mm3 (4.4-11.0)
[2017-08-21 07:41] LABS: POSITIVE COUNT NO; POSITIVE DIFFERENTIAL NO; POSITIVE MORPHOLOGY NO
[2017-08-21 07:55] LABS: Hemoglobin A1c 5.4 % (4.2-6.3)
[2017-08-21 08:26] LABS: Vancomycin, Trough Level 12.7 ug/mL (5.0-15.0)
--- NOTE | 2017-08-21 08:54 | PCM.PN.HOSP ---
Patient Problems: Active and Suspected Problems Encephalopathy (Acute) Chest pain (Acute) Anxiety (Acute) Alcohol withdrawal (Acute) Subjective: Patient with no acute events overnight per self and per nursing report. He states he feels remarkably improved in regards to withdrawal symptoms with no further tremoring. He also denies any further chest discomfort. discussed recent MRI with evidence of osteomyelitis in both the first and second toe with pending reevaluation per podiatry with possible further intervention to which patient is amenable. Given IV antibiotic therapy needs versus possible operative intervention patient will likely need half-way facility. Patient denies fevers, chills, nausea, emesis, abdominal pain, chest pain or dyspnea. Objective: Physical Examination: General: awake, alert, oriented x 3 and cooperative, seated upright in bed in no apparent distress. Skin: normal color, turgor, no icterus, cyanosis except dressed RLE, mild serosanguious drainage [Admit wound with right 2nd toe wound, foul-smelling but no purulent draining, noted fibrous rough tissue and tendon exposed with ability to probe to the bone (1.1 x 1.0 x 0.2 cm) and discolored phalanx head that is cross in appearance in addition to 1st great toe wound with eschar, fibrous and glandular base with inability to probe to the bone with atrophic skin (1.5 x 1.4 x 0.1 cm)] HEENT: AT/NC, EOMI, PERRLA, MMM. Lungs: CTA bilaterally, moderate effort, mild decrease BL bases, no rales, ronchi or wheezing. Heart: Regular rate and rhythm; no gallop, rub audible. Abdomen: soft, overweight, NTTP, ND, normal BS. Extremities: no cyanosis, clubbing, see skin. Neurological: patient awake, alert, oriented x 3; cognitive function intact; pupils equally reactive to light and accomodation; cranial nerves II-XII grossly normal, moving all 4 extremities, no focal deficits, strength improving, improving, mildly to moderately globally decreased. Psychiatric: affect appears normal, no acute evidence of depressive or anxiety feelings. Vitals/I&O's: Vital Signs Temp Pulse Resp BP Pulse Ox 98.0 F 97 16 136/93 H 98 08/21/17 05:37 08/21/17 05:37 08/21/17 05:37 08/21/17 05:37 08/21/17 04:00 Oxygen Delivery Method Room Air Weight: 217 lb 2.485 oz Body Mass Index (BMI) 27.1 Intake and Output for Last 24 Hours 08/19/17 08/20/17 08/21/17 23:59 23:59 23:59 Intake Total 1919 3108 / 3108 2145 / 2145 Balance 1919 3108 / 3108 2145 / 2145 Microbiology Past 72 Hours 08/19/17 19:05 Abs - Toe Gram Stain - Final 08/19/17 19:05 Abs - Toe Wound Culture - Preliminary Proteus vulgaris GNR lactose academic director Gram positive organism Laboratory Results 08/20/17 11:20: S.aureus Protein A PCR NEGATIVE, MRSA (PCR) Negative 08/21/17 07:20: Vancomycin Trough 12.7 08/21/17 07:20: WBC 3.2 L, RBC 4.02 L, Hgb 12.4 L, Hct 38.2 L, MCV 95.0 H, MCH 30.8, MCHC 32.5, RDW 15.1 H, RDW Differential 50.7 H, Plt Count 160, MPV 10.3, Immature Gran % (Auto) 0.300, Neut % (Auto) 59.5, Lymph % (Auto) 20.4, [place] % (Auto) 15.1 H, Eos % (Auto) 2.2, Baso % (Auto) 2.5 H, Absolute Neuts (auto) 1.9 L, Absolute Lymphs (auto) 0.65 L, Total Counted Not Reportable 08/21/17 07:20: Vitamin B12 Pending 08/21/17 07:20: Folate 12.20 08/21/17 07:20: Hemoglobin A1c 5.4 Current Medications Acetaminophen (Tylenol) 650 mg PO Q6H PRN PRN PRN Reason: Mild Pain (1-3)/Temp > 100.7 F Al Hydroxide/Mg Hydroxide (Mylanta Ii) 30 ml PO Q6H PRN PRN PRN Reason: dyspesia Aspirin (Aspirin, Baby) 81 mg PO DAILY@0800 JOE Last Admin: 08/21/17 08:52 Dose: Not Given Baclofen (Lioresal) 10 mg PO BID PRN PRN PRN Reason: PAIN Last Admin: 08/19/17 22:11 Dose: 10 mg Bisacodyl (Dulcolax) 10 mg RECTAL DAILY PRN PRN Reason: Constipation Clonidine (Catapres) 0.1 mg PO Q4 [facility] Last Admin: 08/21/17 05:58 Dose: 0.1 mg Dicyclomine HCl (Bentyl) 20 mg PO Q6H PRN PRN PRN Reason: abdominal discomfort Last Admin: 08/19/17 07:22 Dose: 20 mg Diltiazem HCl (Cardizem Cd) 240 mg PO DAILY [facility] Last Admin: 08/20/17 11:15 Dose: Not Given Enoxaparin Sodium (Lovenox) 40 mg SC DAILY@1000 [facility] Last Admin: 08/20/17 11:02 Dose: 40 mg Famotidine (Pepcid) 20 mg PO BID [facility] Last Admin: 08/20/17 21:44 Dose: 20 mg Folic Acid (Folic Acid) 1 mg PO DAILY@0800 [facility] Last Admin: 08/21/17 08:52 Dose: Not Given Gabapentin (Neurontin) 800 mg PO TIDCM [facility] Last Admin: 08/21/17 08:52 Dose: Not Given Hydralazine HCl (Apresoline Iv) 10 mg IV Q4H PRN PRN PRN Reason: SBP > 160 Hydroxyzine Pamoate (Vistaril Pamoate Capsule) 50 mg PO Q6H PRN PRN PRN Reason: Mild Anxiety (score 1/3) Last Admin: 08/21/17 01:28 Dose: 50 mg Piperacillin Sod/Tazobactam Sod (Zosyn) 3.375 gm in 50 mls @ 12.5 mls/hr IV Q8 [facility] Last Admin: 08/21/17 05:58 Dose: 12.5 mls/hr Vancomycin HCl 1,500 mg/ (Sodium Chloride) 530 mls @ 250 mls/hr IV Q12H [facility] Last Admin: 08/20/17 20:03 Dose: 250 mls/hr Sodium Chloride () 250 mls @ 15 mls/hr IV .[id number] PRN PRN Reason: SALINE FLUSH Last Admin: 08/20/17 05:42 Dose: 15 mls/hr Sodium Chloride () 1,000 mls @ 100 mls/hr IV .Q10H [facility] Ibuprofen (Motrin) 600 mg PO Q8H PRN PRN PRN Reason: Mild-Moderate Pain (1-5/10) Last Admin: 08/19/17 16:14 Dose: 600 mg Lisinopril (Zestril) 20 mg PO DAILY [facility] Last Admin: 08/20/17 11:15 Dose: Not Given Loperamide HCl (Imodium) 2 mg PO Q2H PRN PRN PRN Reason: Diarrhea Last Admin: 08/20/17 19:11 Dose: 2 mg Lorazepam (Ativan) 1 mg PO Q8H [facility] PRN Reason: Taper Stop: 08/21/17 18:14 Last Admin: 08/21/17 01:30 Dose: 1 mg Magnesium Hydroxide (Milk Of Magnesia) 30 ml PO DAILY PRN PRN PRN Reason: Constipation Methocarbamol (Methocarbamol) 750 mg PO Q6H PRN PRN PRN Reason: Muscle Aches Last Admin: 08/20/17 05:45 Dose: 750 mg Morphine Sulfate () 1 - 2 mg IV Q4H PRN PRN PRN Reason: chest pain Multivitamins/Minerals ([facility] With Minerals) [facility] Last Admin: 08/21/17 08:52 Dose: Not Given Nicotine (Nicoderm Cq (Pbkc)) 21 mg TRANSDERM. DAILY [facility] Last Admin: 08/20/17 09:22 Dose: 21 mg Nicotine Polacrilex (Rugby Nicotine (Pbkc)) 4 mg PO Q2H PRN PRN PRN Reason: Nicotine Craving Last Admin: 08/20/17 19:02 Dose: 4 mg Nitroglycerin (Nitrostat) 0.4 mg SUBLINGUAL Q5M PRN PRN Reason: CHEST PAIN Nutritional Formula (Rafi - [place] Flavor) 1 packet PO BIDCM [facility] Last Admin: 08/21/17 08:52 Dose: Not Given Nutritional Formula (Lactose Free) (Ensure Clear) 120 ml PO 4X/DAY [facility] Last Admin: 08/20/17 21:42 Dose: 120 ml Ondansetron HCl (Zofran) 4 mg IV Q8H PRN PRN PRN Reason: NAUSEA Ondansetron HCl (Zofran Odt) 4 mg PO Q6H PRN PRN PRN Reason: NAUSEA Pramipexole Dihydrochloride (Mirapex) 0.25 mg PO Q12H PRN PRN PRN Reason: Restless legs Quetiapine Fumarate (Seroquel) 25 mg PO Q6H PRN PRN PRN Reason: Moderate Anxiety (score 2/3) Last Admin: 08/20/17 03:20 Dose: 25 mg Senna (Senokot) 1 tablet PO QHS PRN PRN Reason: Constipation Sodium Chloride () 5 - 30 ml IV UD PRN PRN Reason: SALINE FLUSH Last Admin: 08/19/17 19:44 Dose: 10 ml Thiamine HCl (Vitamin B1) 100 mg PO DAILYCM JOE Last Admin: 08/21/17 08:52 Dose: Not Given Trazodone HCl (Desyrel) 50 mg PO QHS [facility] Last Admin: 08/20/17 21:43 Dose: Not Given Medical Necessity - Tobacco Use Smoking Status: Current every day smoker Tobacco Use: Cigarettes Assessment/Plan Active and Suspected Problems Encephalopathy (Acute) Chest pain (Acute) Anxiety (Acute) Alcohol withdrawal (Acute) The patient is a 62 y/o M w/ PMHx: HTN, Hx Prostate CA, Chronic Back Pain, Urinary Incontinence, Anxiety and Depression, EtOH Abuse who presents to the [facility] ED on 08/18/17, brought in per his Sabianism with confusion and onset midsternal chest pain ongoing for several months with recent decision for sobriety with acute EtOH withdrawal sxs. (1) Infected Right Foot Wounds w/ R 2nd Toe Ulcer and R Hallus Ulcer w/ Acute Osteomyelitis: Present on admission, unclear injury timeline as noted ongoing EtOH binge x 3 weeks with likely no clothing, including sock change during that time. Wound Cx, MRSA Wound pending. Maintained on IV Vanc and Zosyn, plain film with concern for osteo, follow-up MRI Foot w/ osteomyelitis of the phalanges of the first and second toes, Podiatry consulted and ID consulted. Given high risk for loss to follow-up and wound care, best option surgical intervention. Reviewed with Dr. Rodríguez and awaiting decision for OR 08/21/17 versus 08/22/17. ation as likely long-term abx needed. CRP, ESR normal levels. Trend CBC, not marked upon presentation. (2) Acute EtOH Withdrawal: Continued on [facility] service protocol with taper course of ativan, continue also PRN Seroquel, Catapres, Bentyl, Vistaril, antiemetics, Tylenol. Mag, phos normal levels. Maintain on CIWA protocol. Maintain on MVI, thiamine, folic acid. (3) Encephalopathy: Likely secondary to #1, #2, #4, resolved, although possibly chronic component secondary to prolonged EtOH Abuse and exposure, CT Head without acute findings, UA unremarkable, CXR not performed but unremarkable exam per admission ED/physician. (4) Chest Pain: Suspected more secondary to anxiety. No ongoing chest pain overnight following admission. EKG in ED no acute findings, initial trop normal ?1. Maintained on a monitored bed to assure no acute myocardial infarction with serial cardiac enzymes and EKGs which remained unremarkable. 08/19/17 AM nuclear stress testing unremarkable. FLP not marked appearing. Mag and phos normal level. (5) Abnormal Liver Enzymes: Admission AST/ALT 158/158, Alk phos 122, likely secondary to his EtOH Abuse and recent binge, improved, 08/20/17 AST/ALT 59/83, 08/21/17 AST/ALT pending. (5) Tobacco Abuse: Encouraged cessation, inpatient consultation per RT, NR if desired. (6) Confirmed HTN history: Maintain on home ACEI, Cardizem, PRN hydralazine. (7) Anxiety and Depression: Not on regimen, would benefit from outpatient therapy and likely initiation SSRI. (8) GERD: Famotidine. (9) Chronic Moderate to Severe Protein-Calorie Malnutrition: Evidenced by habitus, muscle and fat loss, secondary to co-morbidities and EtOH Abuse, maintain on supplementations, nutrition consulted. (10) Chronic Macrocytic Anemia: Admission Hgb 12.3, repeat 12.4, stable, vitamin B12 pending, folic acid normal level, pending Fe panel and ferritin, likely secondary to EtOH Abuse, maintained on folic acid and vitamin B12 as noted. (11) DVT Prophylaxis: SCDs, lovenox on hold for possible OR today. Code Visit Inpatient E&M: 48266 Subs Hosp L3
--- NOTE | 2017-08-21 09:04 | PCM.PROGNOTE ---
Patient Problems: Active and Suspected Problems Encephalopathy (Acute) Chest pain (Acute) Anxiety (Acute) Alcohol withdrawal (Acute) Subjective: This 62-year-old male with history of alcohol abuse and tachycardia was seen this morning for follow-up of infected right first and second toes with osteomyelitis. He denies fever, chill, nausea, vomiting at this time. He reports he finally slept last night. His pain is controlled to his right foot because he reports he does not have any feeling due to his neuropathy. He is amenable to proceed with surgical resection of the infected bone. He has remained n.p.o. overnight. - Physical Exam General: Alert, Oriented x3, Cooperative Extremities: No cyanosis, Capillary Refill Less than 3 Seconds - All toes right foot, No Calf Tenderness - Negative Dontae and Ram, Edema - Forefoot minimal right, Peripheral Pulses Normal Skin: Ulcer/ Wound - Devitalized infected dorsal second toe ulcer with bone exposed (cross and discolored) and dorsal and distal hallux ulcers with probe to bone, devitalized tissue and eschar is noted. There is continued odor and no further development of purulence on expression compared to yesterday. His skin turgor is normal to the right forefoot. Musculoskeletal: No Tenderness to Palpation of Joints or Extremities, Muscle Wasting, - - Dorsal contraction of all toes right foot reducible. Compartments the right lower extremity remain soft Neurological: - - lack of epicritic sensation light touch right lower extremity Psych/Mental Status: Normal Affect, Appropriate Vital Signs Temp Pulse Resp BP Pulse Ox 98.0 F 97 16 136/93 H 98 08/21/17 05:37 08/21/17 05:37 08/21/17 05:37 08/21/17 05:37 08/21/17 04:00 Oxygen Delivery Method Room Air Weight: 98.5 kg Body Mass Index (BMI) 27.1 Intake and Output for Last 24 Hours 08/19/17 08/20/17 08/21/17 23:59 23:59 23:59 Intake Total 1919 310 / 3107 2144 / 2144 Balance 1919 / 3107 2144 / 2144 Microbiology Past 72 Hours 08/19/17 19:05 Gram Stain - Final Abs - Toe Wound Culture - Preliminary Proteus vulgaris GNR lactose retort feeder ground bone Gram positive organism Laboratory Tests Past 24 Hrs 08/20/17 08/21/17 08/21/17 11:20 07:20 07:20 WBC 3.2 L RBC 4.02 L Hgb 12.4 L Hct 38.2 L MCV 95.0 H MCH 30.8 MCHC 32.5 RDW 15.1 H RDW Differential 50.7 H Plt Count 160 MPV 10.3 Immature Gran % (Auto) 0.300 Neut % (Auto) 59.5 Lymph % (Auto) 20.4 [place] % (Auto) 15.1 H Eos % (Auto) 2.2 Baso % (Auto) 2.5 H Absolute Neuts (auto) 1.9 L Absolute Lymphs (auto) 0.65 L Total Counted Not Reportable Hemoglobin A1c Vitamin B12 Folate Vancomycin Trough 12.7 S.aureus Protein A PCR NEGATIVE MRSA (PCR) Negative 08/21/17 08/21/17 08/21/17 07:20 07:20 07:20 WBC RBC Hgb Hct MCV MCH MCHC RDW RDW Differential Plt Count MPV Immature Gran % (Auto) Neut % (Auto) Lymph % (Auto) [place] % (Auto) Eos % (Auto) Baso % (Auto) Absolute Neuts (auto) Absolute Lymphs (auto) Total Counted Hemoglobin A1c 5.4 Vitamin B12 Pending Folate 12.20 Vancomycin Trough S.aureus Protein A PCR MRSA (PCR) Medical Necessity - Tobacco Use Smoking Status: Current every day smoker Tobacco Use: Cigarettes Assessment/Plan Active and Suspected Problems Encephalopathy (Acute) Chest pain (Acute) Anxiety (Acute) Alcohol withdrawal (Acute) Right second toe infected ulcer with osteomyelitis Right hallux infected ulcers with osteomyelitis Hammer toe right foot Malnutrition Other comorbidities including alcoholic encephalopathy, alcohol abuse, and anxiety I reviewed and discussed his case today. His x-rays and MRI were reviewed. Based on his clinical appearance and MRI images, osteomyelitis of the hallux (distal and proximal phalanx) and second toe (all phalanges) is noted. His labs are reviewed and he has a white blood cell count was 4.2, sedimentation rate 15, C-reactive protein 1.92. Infectious disease is on consultation and input will be greatly appreciated. He continues on vancomycin and Zosyn. We discussed his treatment options at length his morning including wound care with antibiotics versus surgical amputation of the infected toes. He will proceed with the more definitive procedure at this time and has remained NPO overnight. There is operating room availability this morning and he is amendable to proceed. The preoperative indications, planned procedure, possible benefits, risks, and anticipated healing time and management were discussed in detail with patient. He understands and elects to proceed with surgery at this time. Informed surgical consent and the surgical limb were signed. No guarantees were made. He understands complications and risks may include but are not limited to the following: Pain, swelling, scarring, continued infection, need for further surgery, further loss of limb life or function. I answered all his questions. This case was discussed with hospitalist, Dr. Davalos. Microbiology and pathology specimens including clearance fragments will be obtained in surgery. Following the surgery, I recommend nutritional support, placement consideration, and nonweightbearing to optimize his healing process. I will continue to follow him in house after the surgery. Please do not hesitate to call if you have any questions. Erika Rodríguez DPM [facility] [phone]
--- NOTE | 2017-08-21 09:11 | PN_ITS ---
Patient Problems: Active and Suspected Problems Encephalopathy (Acute) Chest pain (Acute) Anxiety (Acute) Alcohol withdrawal (Acute) Subjective: Patient with no acute events overnight per self and per nursing report. He states he feels remarkably improved in regards to withdrawal symptoms with no further tremoring. He also denies any further chest discomfort. discussed recent MRI with evidence of osteomyelitis in both the first and second toe with pending reevaluation per podiatry with possible further intervention to which patient is amenable. Given IV antibiotic therapy needs versus possible operative intervention patient will likely need correction facility. Patient denies fevers, chills, nausea, emesis, abdominal pain, chest pain or dyspnea. Objective: Physical Examination: General: awake, alert, oriented x 3 and cooperative, seated upright in bed in no apparent distress. Skin: normal color, turgor, no icterus, cyanosis except dressed RLE, mild serosanguious drainage [Admit wound with right 2nd toe wound, foul-smelling but no purulent draining, noted fibrous rough tissue and tendon exposed with ability to probe to the bone (1.1 x 1.0 x 0.2 cm) and discolored phalanx head that is cross in appearance in addition to 1st great toe wound with eschar, fibrous and glandular base with inability to probe to the bone with atrophic skin (1.5 x 1.4 x 0.1 cm)] HEENT: AT/NC, EOMI, PERRLA, MMM. Lungs: CTA bilaterally, moderate effort, mild decrease BL bases, no rales, ronchi or wheezing. Heart: Regular rate and rhythm; no gallop, rub audible. Abdomen: soft, overweight, NTTP, ND, normal BS. Extremities: no cyanosis, clubbing, see skin. Neurological: patient awake, alert, oriented x 3; cognitive function intact; pupils equally reactive to light and accomodation; cranial nerves II-XII grossly normal, moving all 4 extremities, no focal deficits, strength improving , improving, mildly to moderately globally decreased. Psychiatric: affect appears normal, no acute evidence of depressive or anxiety feelings. Vitals/I&O's: Vital Signs Temp Pulse Resp BP Pulse Ox 98.0 F 97 16 136/93 H 98 08/21/17 05:37 08/21/17 05:37 08/21/17 05:37 08/21/17 05:37 08/21/17 04:00 Oxygen Delivery Method Room Air Weight: 217 lb 2.485 oz Body Mass Index (BMI) 27.1 Intake and Output for Last 24 Hours 08/19/17 08/20/17 08/21/17 23:59 23:59 23:59 Intake Total 1919 3108 / 3108 2145 / 2145 Balance 1919 3108 / 3108 2145 / 2145 Microbiology Past 72 Hours 08/19/17 19:05 Abs - Toe Gram Stain - Final 08/19/17 19:05 Abs - Toe Wound Culture - Preliminary Proteus vulgaris GNR lactose shank faker Gram positive organism Laboratory Results 08/20/17 11:20: S.aureus Protein A PCR NEGATIVE, MRSA (PCR) Negative 08/21/17 07:20: Vancomycin Trough 12.7 08/21/17 07:20: WBC 3.2 L, RBC 4.02 L, Hgb 12.4 L, Hct 38.2 L, MCV 95.0 H, MCH 30.8, MCHC 32.5, RDW 15.1 H, RDW Differential 50.7 H, Plt Count 160, MPV 10.3, Immature Gran % (Auto) 0.300, Neut % (Auto) 59.5, Lymph % (Auto) 20.4, [place] % ( Auto) 15.1 H, Eos % (Auto) 2.2, Baso % (Auto) 2.5 H, Absolute Neuts (auto) 1.9 L , Absolute Lymphs (auto) 0.65 L, Total Counted Not Reportable 08/21/17 07:20: Vitamin B12 Pending 08/21/17 07:20: Folate 12.20 08/21/17 07:20: Hemoglobin A1c 5.4 Current Medications Acetaminophen (Tylenol) 650 mg PO Q6H PRN PRN PRN Reason: Mild Pain (1-3)/Temp > 100.7 F Al Hydroxide/Mg Hydroxide (Mylanta Ii) 30 ml PO Q6H PRN PRN PRN Reason: dyspesia Aspirin (Aspirin, Baby) 81 mg PO DAILY@0800 JOE Last Admin: 08/21/17 08:52 Dose: Not Given Baclofen (Lioresal) 10 mg PO BID PRN PRN PRN Reason: PAIN Last Admin: 08/19/17 22:11 Dose: 10 mg Bisacodyl (Dulcolax) 10 mg RECTAL DAILY PRN PRN Reason: Constipation Clonidine (Catapres) 0.1 mg PO Q4 [facility] Last Admin: 08/21/17 05:58 Dose: 0.1 mg Dicyclomine HCl (Bentyl) 20 mg PO Q6H PRN PRN PRN Reason: abdominal discomfort Last Admin: 08/19/17 07:22 Dose: 20 mg Diltiazem HCl (Cardizem Cd) 240 mg PO DAILY [facility] Last Admin: 08/20/17 11:15 Dose: Not Given Enoxaparin Sodium (Lovenox) 40 mg SC DAILY@1000 [facility] Last Admin: 08/20/17 11:02 Dose: 40 mg Famotidine (Pepcid) 20 mg PO BID [facility] Last Admin: 08/20/17 21:44 Dose: 20 mg Folic Acid (Folic Acid) 1 mg PO DAILY@0800 [facility] Last Admin: 08/21/17 08:52 Dose: Not Given Gabapentin (Neurontin) 800 mg PO TIDCM [facility] Last Admin: 08/21/17 08:52 Dose: Not Given Hydralazine HCl (Apresoline Iv) 10 mg IV Q4H PRN PRN PRN Reason: SBP > 160 Hydroxyzine Pamoate (Vistaril Pamoate Capsule) 50 mg PO Q6H PRN PRN PRN Reason: Mild Anxiety (score 1/3) Last Admin: 08/21/17 01:28 Dose: 50 mg Piperacillin Sod/Tazobactam Sod (Zosyn) 3.375 gm in 50 mls @ 12.5 mls/hr IV Q8 [facility] Last Admin: 08/21/17 05:58 Dose: 12.5 mls/hr Vancomycin HCl 1,500 mg/ (Sodium Chloride) 530 mls @ 250 mls/hr IV Q12H [facility] Last Admin: 08/20/17 20:03 Dose: 250 mls/hr Sodium Chloride () 250 mls @ 15 mls/hr IV .[id number] PRN PRN Reason: SALINE FLUSH Last Admin: 08/20/17 05:42 Dose: 15 mls/hr Sodium Chloride () 1,000 mls @ 100 mls/hr IV .Q10H [facility] Ibuprofen (Motrin) 600 mg PO Q8H PRN PRN PRN Reason: Mild-Moderate Pain (1-5/10) Last Admin: 08/19/17 16:14 Dose: 600 mg Lisinopril (Zestril) 20 mg PO DAILY [facility] Last Admin: 08/20/17 11:15 Dose: Not Given Loperamide HCl (Imodium) 2 mg PO Q2H PRN PRN PRN Reason: Diarrhea Last Admin: 08/20/17 19:11 Dose: 2 mg Lorazepam (Ativan) 1 mg PO Q8H [facility] PRN Reason: Taper Stop: 08/21/17 18:14 Last Admin: 08/21/17 01:30 Dose: 1 mg Magnesium Hydroxide (Milk Of Magnesia) 30 ml PO DAILY PRN PRN PRN Reason: Constipation Methocarbamol (Methocarbamol) 750 mg PO Q6H PRN PRN PRN Reason: Muscle Aches Last Admin: 08/20/17 05:45 Dose: 750 mg Morphine Sulfate () 1 - 2 mg IV Q4H PRN PRN PRN Reason: chest pain Multivitamins/Minerals (Multivitamin With Minerals) [facility] Last Admin: 08/21/17 08:52 Dose: Not Given Nicotine (Nicoderm Cq (Pbkc)) 21 mg TRANSDERM. DAILY [facility] Last Admin: 08/20/17 09:22 Dose: 21 mg Nicotine Polacrilex ([place] Nicotine (Pbkc)) 4 mg PO Q2H PRN PRN PRN Reason: Nicotine Craving Last Admin: 08/20/17 19:02 Dose: 4 mg Nitroglycerin (Nitrostat) 0.4 mg SUBLINGUAL Q5M PRN PRN Reason: CHEST PAIN Nutritional Formula (Rafi - [place] Flavor) 1 packet PO BIDCM [facility] Last Admin: 08/21/17 08:52 Dose: Not Given Nutritional Formula (Lactose Free) (Ensure Clear) 120 ml PO 4X/DAY [facility] Last Admin: 08/20/17 21:42 Dose: 120 ml Ondansetron HCl (Zofran) 4 mg IV Q8H PRN PRN PRN Reason: NAUSEA Ondansetron HCl (Zofran Odt) 4 mg PO Q6H PRN PRN PRN Reason: NAUSEA Pramipexole Dihydrochloride (Mirapex) 0.25 mg PO Q12H PRN PRN PRN Reason: Restless legs Quetiapine Fumarate (Seroquel) 25 mg PO Q6H PRN PRN PRN Reason: Moderate Anxiety (score 2/3) Last Admin: 08/20/17 03:20 Dose: 25 mg Senna (Senokot) 1 tablet PO QHS PRN PRN Reason: Constipation Sodium Chloride () 5 - 30 ml IV UD PRN PRN Reason: SALINE FLUSH Last Admin: 08/19/17 19:44 Dose: 10 ml Thiamine HCl (Vitamin B1) 100 mg PO DAILYCM [facility]E Last Admin: 08/21/17 08:52 Dose: Not Given Trazodone HCl (Desyrel) 50 mg PO QHS [facility] Last Admin: 08/20/17 21:43 Dose: Not Given Medical Necessity - Tobacco Use Smoking Status: Current every day smoker Tobacco Use: Cigarettes Assessment/Plan Active and Suspected Problems Encephalopathy (Acute) Chest pain (Acute) Anxiety (Acute) Alcohol withdrawal (Acute) The patient is a 62 y/o M w/ PMHx: HTN, Hx Prostate CA, Chronic Back Pain, Urinary Incontinence, Anxiety and Depression, EtOH Abuse who presents to the [facility] ED on 08/18/17, brought in per his Bahai with confusion and onset midsternal chest pain ongoing for several months with recent decision for sobriety with acute EtOH withdrawal sxs. (1) Infected Right Foot Wounds w/ R 2nd Toe Ulcer and R Hallus Ulcer w/ Acute Osteomyelitis: Present on admission, unclear injury timeline as noted ongoing EtOH binge x 3 weeks with likely no clothing, including sock change during that time. Wound Cx, MRSA Wound pending. Maintained on IV Vanc and Zosyn, plain film with concern for osteo, follow-up MRI Foot w/ osteomyelitis of the phalanges of the first and second toes, Podiatry consulted and ID consulted. Given high risk for loss to follow-up and wound care, best option surgical intervention. Reviewed with Dr. Rodríguez and awaiting decision for OR 08/21/17 versus 08/22/17. ation as likely long-term abx needed. CRP, ESR normal levels. Trend CBC, not marked upon presentation. (2) Acute EtOH Withdrawal: Continued on [facility] service protocol with taper course of ativan, continue also PRN Seroquel, Catapres, Bentyl, Vistaril, antiemetics, Tylenol. Mag, phos normal levels. Maintain on CIWA protocol. Maintain on MVI, thiamine, folic acid. (3) Encephalopathy: Likely secondary to #1, #2, #4, resolved, although possibly chronic component secondary to prolonged EtOH Abuse and exposure, CT Head without acute findings, UA unremarkable, CXR not performed but unremarkable exam per admission ED/physician. (4) Chest Pain: Suspected more secondary to anxiety. No ongoing chest pain overnight following admission. EKG in ED no acute findings, initial trop normal ?1. Maintained on a monitored bed to assure no acute myocardial infarction with serial cardiac enzymes and EKGs which remained unremarkable. 08/19/17 AM nuclear stress testing unremarkable. FLP not marked appearing. Mag and phos normal level. (5) Abnormal Liver Enzymes: Admission AST/ALT 158/158, Alk phos 122, likely secondary to his EtOH Abuse and recent binge, improved, 08/20/17 AST/ALT 59/83, AST/ALT pending. (5) Tobacco Abuse: Encouraged cessation, inpatient consultation per RT, NR if desired. (6) Confirmed HTN history: Maintain on home ACEI, Cardizem, PRN hydralazine. (7) Anxiety and Depression: Not on regimen, would benefit from outpatient therapy and likely initiation SSRI. (8) GERD: Famotidine. (9) Chronic Moderate to Severe Protein-Calorie Malnutrition: Evidenced by habitus, muscle and fat loss, secondary to co-morbidities and EtOH Abuse, maintain on supplementations, nutrition consulted. (10) Chronic Macrocytic Anemia: Admission Hgb 12.3, repeat 12.4, stable, vitamin B12 pending, folic acid normal level, pending Fe panel and ferritin, likely secondary to EtOH Abuse, maintained on folic acid and vitamin B12 as noted. (11) DVT Prophylaxis: SCDs, lovenox on hold for possible OR today. Code Visit Inpatient E&M: 80456 Subs Hosp L3
--- NOTE | 2017-08-21 09:30 | RAD_ITS ---
STUDY: X-RAY RIGHT FOOT, REASON FOR EXAM: Male, 62 years old. Amputation TECHNIQUE: 4 intraoperative view(s) of the toe were obtained. COMPARISON: August 19, 2017. FINDINGS: Status post amputation of the first and second toes since the previous study. Bony details are limited. RAD/Toe(s) Min 2 Views IMPRESSION: Status post amputation of the first and second toes at the metatarsophalangeal articulation. Electronically Signed: Boris Mcpherson DO at 21:28 EDT Tel [phone], Service support ,
[2017-08-21 09:37] LABS: ALB/GLOB Ratio 0.9 RATIO (0.9-2.4); AST(SGOT) 52 U/L (15-37); Alanine Aminotransfer ALT/SGPT 76 U/L (16-61); Albumin, Serum 2.9 g/dL (3.2-5.0); Alkaline Phosphatase 92 U/L (45-117); Anion Gap 8 (5-15); BUN 14 mg/dL (7-18); BUN/Creat Ratio 23.5 RATIO (10-20); Calcium,Total 8.5 mg/dL (8.5-10.1); Chloride 109 mmol/L (98-107); EST Glomerular Filtration Rate 147 mL/min (>60); Est Glom Filt Rate - Afr Amer 178 mL/min (>60); Estimated Creatinine Clearance 156.48 ml/min; Ferritin 336 ng/mL (26-388); Globulin 3.1 g/dL (2.2-4.2); Glucose 93 mg/dL (74-106); Iron 82 ug/dL (65-175); Iron Binding Capacity,Total 184 ug/dL (250-450); PERCENT IRON SATURATION 44.6 % (15.0-55.0); Potassium 3.8 mmol/L (3.5-5.1); Sodium Level 141 mmol/L (136-145)
--- NOTE | 2017-08-21 09:58 | NURSING ---
Was asked to see patient for wounds to the right great and second toes. Pt is currently down in OR getting these toes amputated per Dr Rodríguez. MRI showed osteomyelitis. will follow patient as needed postoperatively.
[2017-08-21] MEDS: Bupivacaine Mpf 0.5% 30 ML VIAL (10:00)
--- NOTE | 2017-08-21 10:34 | PHA.PHARE_ITS ---
Consult Pharmacy has been consulted to manage selected antiobiotic: Vancomycin Type of Consult: Follow-up Suspected Infection: Skin/Soft tissue Labs: Sodium 141 mmol/L (136-145) 08/21/17 07:20 Potassium 3.8 mmol/L (3.5-5.1) 08/21/17 07:20 Chloride 109 mmol/L (98-107) H 08/21/17 07:20 Carbon Dioxide 24.0 mmol/L (21.0-32.0) 08/21/17 07:20 Anion Gap 8 (5-15) 08/21/17 07:20 BUN 14 mg/dL (7-18) 08/21/17 07:20 Creatinine 0.60 mg/dL (0.70-1.30) L 08/21/17 07:20 Est GFR (MDRD) Af Amer 178 mL/min (>60) 08/21/17 07:20 Est GFR (MDRD) Non-Af 147 mL/min (>60) 08/21/17 07:20 BUN/Creatinine Ratio 23.5 RATIO (10-20) H 08/21/17 07:20 Glucose 93 mg/dL (74-106) 08/21/17 07:20 Vancomycin Trough 12.7 ug/mL (5.0-15.0) 08/21/17 07:20 Microbiology: Microbiology 08/19/17 19:05 Abs - Toe Gram Stain - Final 08/19/17 19:05 Abs - Toe Wound Culture - Preliminary Proteus vulgaris GNR lactose steward/stewardess second class Gram positive organism Goal Trough: 10-15 mcg/mL Pharmacy Plan for Drug Dosing: Pharmacy Service will continue to monitor and adjust dosing as required. Pharmacy to manage vancomycin per consult for the treatment of a toe infection. The patient has a level drawn, which resulted in a value of 12.7 (drawn 11.5hrs from last administered dose). This is within the goal trough of 10-15, will continue patient on current dose. No additional trough level ordered at this time. Should the patient remain on vancomycin for a long duration of time, or if there is a significant change in renal function, another trough will be ordered then. Pharmacy will continue to monitor. PLAN/RECOMMENDATIONS 1. Continue vancomycin 1.5g IV Q12hrs 2. No additional trough at this time 3. Pharmacy will continue to monitor the patient on a daily basis, and will make changes as appropriate
--- NOTE | 2017-08-21 11:07 | PCM.IMDPSTOP ---
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 (2) Ulcer of right foot with fat layer exposed Status: Chronic (3) Hammer toe of right foot Status: Chronic (4) Neuropathy Status: Chronic (5) Malnutrition Status: Chronic (6) Alcohol withdrawal Status: Acute Immediate Post-Op Note Date of Procedure: 08/21/17 Primary Surgeon/Physician: Erika Rodríguez DPM retail receiving clerk: none Pre-Operative Diagnosis: hallux and second toe osteomyelitis right foot Post-Operative Diagnosis: hallux and second toe osteomyelitis right foot Surgery/Procedure Performed:: amputation of hallux and second toe right foot Description of Surgical Findings:: hemostasis controlled see detailed operation report The patient tolerated the procedure and anesthesia well. He was transferred to the PACU vital signs stable and vascular status intact to the right lower extremity. Electronic orders will be placed and he will be transferred back to the regular medical surgical floor upon continued PACU stability. He continues on antibiotics and his micro pathology specimen results are pending. Estimated Blood Loss: <100 mL Specimen's removed: 1. Right foot soft tissue and bone sent to pathology. 2. Right foot soft tissue and bone sent to microbiology (aerobic, anaerobic, acid-fast, fungal). 3. Right hallux clearance fragment sent to pathology. 4. Right hallux clearance fragment sent to microbiology (aerobic, anaerobic, acid-fast, fungal). 5. Right second toe clearance fragment sent to pathology. 6. Right second toe clearance fragment sent to microbiology (aerobic, anaerobic, acid-fast, fungal) Drains: none Type of Anesthesia:: Local MAC - Preoperative injection to right foot including first and second ray blocks with 1: 1 mixture of 0.5% Marcaine plain and 1% lidocaine plain, 18 cc - Admit VTE Documentation VTE Present on Admission: No VTE Mechan Device Prophylaxis: SCD's VTE Pharm Prophylaxis ordered?: Yes
--- NOTE | 2017-08-21 11:12 | OP.PN_ITS ---
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 (2) Ulcer of right foot with fat layer exposed Status: Chronic (3) Hammer toe of right foot Status: Chronic (4) Neuropathy Status: Chronic (5) Malnutrition Status: Chronic (6) Alcohol withdrawal Status: Acute Immediate Post-Op Note Date of Procedure: 08/21/17 Primary Surgeon/Physician: Erika Rodríguez DPM stoner hand: none Pre-Operative Diagnosis: hallux and second toe osteomyelitis right foot Post-Operative Diagnosis: hallux and second toe osteomyelitis right foot Surgery/Procedure Performed:: amputation of hallux and second toe right foot Description of Surgical Findings:: hemostasis controlled see detailed operation report The patient tolerated the procedure and anesthesia well. He was transferred to the PACU vital signs stable and vascular status intact to the right lower extremity. Electronic orders will be placed and he will be transferred back to the regular medical surgical floor upon continued PACU stability. He continues on antibiotics and his micro pathology specimen results are pending. Estimated Blood Loss: <100 mL Specimen's removed: 1. Right foot soft tissue and bone sent to pathology. 2. Right foot soft tissue and bone sent to microbiology (aerobic, anaerobic, acid- fast, fungal). 3. Right hallux clearance fragment sent to pathology. 4. Right hallux clearance fragment sent to microbiology (aerobic, anaerobic, acid- fast, fungal). 5. Right second toe clearance fragment sent to pathology. 6. Right second toe clearance fragment sent to microbiology (aerobic, anaerobic, acid-fast, fungal) Drains: none Type of Anesthesia:: Local MAC - Preoperative injection to right foot including first and second ray blocks with 1: 1 mixture of 0.5% Marcaine plain and 1% lidocaine plain, 18 cc - Admit VTE Documentation VTE Present on Admission: No VTE Mechan Device Prophylaxis: SCD's VTE Pharm Prophylaxis ordered?: Yes
--- NOTE | 2017-08-21 11:15 | PCM.OPRPT ---
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 (2) Ulcer of right foot with fat layer exposed Status: Chronic (3) Hammer toe of right foot Status: Chronic (4) Neuropathy Status: Chronic (5) Malnutrition Status: Chronic (6) Alcohol withdrawal Status: Acute Report of Operation Date of Procedure: 08/21/17 Pre-Operative Diagnosis: hallux and second toe osteomyelitis right foot Post-Operative Diagnosis: hallux and second toe osteomyelitis right foot Surgery/Procedure Performed:: amputation of hallux and second toe right foot Description of Surgical Findings:: Hemostasis: Well-padded pneumatic right ankle tourniquet, 250 mmHg (13 minutes) Materials: 2-0 Vicryl, 3-0 Prolene, 2-0 Prolene Complications: None rate reviewer: none Type of Anesthesia:: Local MAC - Preoperative injection to right foot including first and second ray blocks with 1: 1 mixture of 0.5% Marcaine plain and 1% lidocaine plain, 18 cc Specimen's removed: 1. Right foot soft tissue and bone sent to pathology. 2. Right foot soft tissue and bone sent to microbiology (aerobic, anaerobic, acid-fast, fungal). 3. Right hallux clearance fragment sent to pathology. 4. Right hallux clearance fragment sent to microbiology (aerobic, anaerobic, acid-fast, fungal). 5. Right second toe clearance fragment sent to pathology. 6. Right second toe clearance fragment sent to microbiology (aerobic, anaerobic, acid-fast, fungal) Drains: none Estimated Blood Loss (mL): <100 mL Description of Procedure: Indications: This is a 62-year-old male with significant past medical history of significant alcohol abuse, tachycardia who is recently been diagnosed with osteomyelitis of the right hallux and second toe including all of the phalanges. He is not aware of the onset of his ulcer sites due to his alcohol abuse status. He has exposed visualized bones in the feet, odor, redness, and swelling. Clinically and radiographically he demonstrates dorsal contraction of the digits. Clinically there is discoloration of the bone and MRI supports the diagnosis of osteomyelitis of the hallux and second toe. He is being managed by infectious disease and culture demonstrate multi organism growth from the wounds. He continues on IV vancomycin and Zosyn. We discussed IV antibiotics in combination with wound care versus surgical amputation. I recommend proceeding with amputation at this time due to his lack of ability to participate in follow-up care and transportation. He agrees he is not likely to proceed with a weekly wound care plan. He understands this is a more definitive procedure and postoperative follow-up will still be necessary. He was medically optimized by the hospitalist team. His preoperative diagnostic data was reviewed including laboratory workup and imaging studies. The preoperative indications, planned procedure, possible benefits, risks, and anticipated healing time and management were discussed in detail with patient. He understands and elects to proceed with surgery at this time. Informed surgical consent and the surgical limb were signed. No guarantees were made. He understands complications and risks may include but are not limited to the following: Pain, swelling, scarring, continued infection, need for further surgery, further loss of limb life or function. I answered all his questions. Procedure in detail: The patient was taken to the operating room via cart and placed on the operating table in supine position. Final verification the patient, surgery, limb designation was performed via the timeout procedure. Preoperative local anesthetic was administered by myself. IV sedation was initiated by the anesthesia team. It is noted he is already receiving antibiotics while on the floor including vancomycin and Zosyn in which she continues. A well-padded pneumatic right ankle tourniquet was placed. The right lower extremity was prepped and draped in the usual aseptic manner and gravity exsanguination was performed at this time. The tourniquet was deflated and surgery began as a following: Attention was first directed to the medial distal aspect of the right foot which a full-thickness linear incision was made from the medial first metatarsal head and a fishmouth incision around the proximal hallux. The first metatarsophalangeal joint was immediately identified and the hallux was disarticulated from the foot and removed from the table. Next attention was directed to the second ray in which a fishmouth incision was made over the second metatarsophalangeal joint in which the joint was promptly disarticulated and the second infected toe was removed from the table as well. Specimens from this area was sent to both pathology microbiology as noted above. Copious saline irrigation was performed. Clean gloves, instruments, and drapery was next applied. All nonviable tissue was carefully excised and dissected out of the wound bed. It is noted there was no purulence, necrosis, or discoloration of the bone or joint at this level. The tourniquet was deflated at this time and electrocauterization was utilized to maintain hemostasis. Hemostasis was considered controlled and there is no pulsatile bleeding. Brisk capillary refill time is noted to all the remaining digits of the right foot and also to the dorsal and plantar flaps at the amputation sites. Minimal Vicryl suture was used to close deep. Next Prolene was utilized to reapproximate the skin utilizing vertical mattress and simple suture technique. Care was taken use no touch technique to protect his friable surgical site. A postoperative x-ray 3 views of the forefoot was obtained demonstrating adequate amputation of the hallux and second toe. No acute injuries or foreign bodies were identified. Utilizing clean instrumentation the most proximal aspect of the hallux and the second toe proximal phalanges were and sent as clearance fragments to both microbiology and pathology. A postoperative dressing was applied including Adaptic, 4 x 4's, abdominal pad, Kerlix, Riccardo wrap. After procedure: The patient tolerated the procedure and anesthesia well. He was transported to the PACU vital signs stable and vascular status intact to the right lower extremity. He was advised to ice and elevate his right lower extremity for pain and inflammation management. I recommend he remains nonweightbearing at this time to protect his recent surgical site. He is already provided with a surgical shoe and will further need crutches or walker. Orders are placed electronically and he will be transferred back to medical surgical floor upon continued stability. Medical management, DVT prophylaxis, pain management per primary team are appreciated. He will continue on IV antibiotics and management with infectious disease is appreciated. His cultures and pathology specimens are pending. His postoperative x-rays were reviewed as noted above. I recommend half-way facility placement because he is not able to properly care for himself at home. He will work with social work to see if there is an opportunity for this. I will continue to follow him close while in house. Erika Rodríguez, [facility]
--- NOTE | 2017-08-21 11:25 | OP.PCM_ITS ---
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 (2) Ulcer of right foot with fat layer exposed Status: Chronic (3) Hammer toe of right foot Status: Chronic (4) Neuropathy Status: Chronic (5) Malnutrition Status: Chronic (6) Alcohol withdrawal Status: Acute Report of Operation Date of Procedure: 08/21/17 Pre-Operative Diagnosis: hallux and second toe osteomyelitis right foot Post-Operative Diagnosis: hallux and second toe osteomyelitis right foot Surgery/Procedure Performed:: amputation of hallux and second toe right foot Description of Surgical Findings:: Hemostasis: Well-padded pneumatic right ankle tourniquet, 250 mmHg (13 minutes) Materials: 2-0 Vicryl, 3-0 Prolene, 2-0 Prolene Complications: None population health coach: none Type of Anesthesia:: Local MAC - Preoperative injection to right foot including first and second ray blocks with 1: 1 mixture of 0.5% Marcaine plain and 1% lidocaine plain, 18 cc Specimen's removed: 1. Right foot soft tissue and bone sent to pathology. 2. Right foot soft tissue and bone sent to microbiology (aerobic, anaerobic, acid- fast, fungal). 3. Right hallux clearance fragment sent to pathology. 4. Right hallux clearance fragment sent to microbiology (aerobic, anaerobic, acid- fast, fungal). 5. Right second toe clearance fragment sent to pathology. 6. Right second toe clearance fragment sent to microbiology (aerobic, anaerobic, acid-fast, fungal) Drains: none Estimated Blood Loss (mL): <100 mL Description of Procedure: Indications: This is a 62-year-old male with significant past medical history of significant alcohol abuse, tachycardia who is recently been diagnosed with osteomyelitis of the right hallux and second toe including all of the phalanges. He is not aware of the onset of his ulcer sites due to his alcohol abuse status. He has exposed visualized bones in the feet, odor, redness, and swelling. Clinically and radiographically he demonstrates dorsal contraction of the digits. Clinically there is discoloration of the bone and MRI supports the diagnosis of osteomyelitis of the hallux and second toe. He is being managed by infectious disease and culture demonstrate multi organism growth from the wounds. He continues on IV vancomycin and Zosyn. We discussed IV antibiotics in combination with wound care versus surgical amputation. I recommend proceeding with amputation at this time due to his lack of ability to participate in follow -up care and transportation. He agrees he is not likely to proceed with a weekly wound care plan. He understands this is a more definitive procedure and postoperative follow-up will still be necessary. He was medically optimized by the hospitalist team. His preoperative diagnostic data was reviewed including laboratory workup and imaging studies. The preoperative indications, planned procedure, possible benefits, risks, and anticipated healing time and management were discussed in detail with patient. He understands and elects to proceed with surgery at this time. Informed surgical consent and the surgical limb were signed. No guarantees were made. He understands complications and risks may include but are not limited to the following: Pain, swelling, scarring, continued infection, need for further surgery, further loss of limb life or function. I answered all his questions. Procedure in detail: The patient was taken to the operating room via cart and placed on the operating table in supine position. Final verification the patient, surgery, limb designation was performed via the timeout procedure. Preoperative local anesthetic was administered by myself. IV sedation was initiated by the anesthesia team. It is noted he is already receiving antibiotics while on the floor including vancomycin and Zosyn in which she continues. A well-padded pneumatic right ankle tourniquet was placed. The right lower extremity was prepped and draped in the usual aseptic manner and gravity exsanguination was performed at this time. The tourniquet was deflated and surgery began as a following: Attention was first directed to the medial distal aspect of the right foot which a full-thickness linear incision was made from the medial first metatarsal head and a fishmouth incision around the proximal hallux. The first metatarsophalangeal joint was immediately identified and the hallux was disarticulated from the foot and removed from the table. Next attention was directed to the second ray in which a fishmouth incision was made over the second metatarsophalangeal joint in which the joint was promptly disarticulated and the second infected toe was removed from the table as well. Specimens from this area was sent to both pathology microbiology as noted above. Copious saline irrigation was performed. Clean gloves, instruments, and drapery was next applied. All nonviable tissue was carefully excised and dissected out of the wound bed. It is noted there was no purulence, necrosis, or discoloration of the bone or joint at this level. The tourniquet was deflated at this time and electrocauterization was utilized to maintain hemostasis. Hemostasis was considered controlled and there is no pulsatile bleeding. Brisk capillary refill time is noted to all the remaining digits of the right foot and also to the dorsal and plantar flaps at the amputation sites. Minimal Vicryl suture was used to close deep. Next Prolene was utilized to reapproximate the skin utilizing vertical mattress and simple suture technique. Care was taken use no touch technique to protect his friable surgical site. A postoperative x-ray 3 views of the forefoot was obtained demonstrating adequate amputation of the hallux and second toe. No acute injuries or foreign bodies were identified. Utilizing clean instrumentation the most proximal aspect of the hallux and the second toe proximal phalanges were and sent as clearance fragments to both microbiology and pathology. A postoperative dressing was applied including Adaptic, 4 x 4's, abdominal pad, Kerlix, Riccardo wrap. After procedure: The patient tolerated the procedure and anesthesia well. He was transported to the PACU vital signs stable and vascular status intact to the right lower extremity. He was advised to ice and elevate his right lower extremity for pain and inflammation management. I recommend he remains nonweightbearing at this time to protect his recent surgical site. He is already provided with a surgical shoe and will further need crutches or walker. Orders are placed electronically and he will be transferred back to medical surgical floor upon continued stability. Medical management, DVT prophylaxis, pain management per primary team are appreciated. He will continue on IV antibiotics and management with infectious disease is appreciated. His cultures and pathology specimens are pending. His postoperative x-rays were reviewed as noted above. I recommend jail facility placement because he is not able to properly care for himself at home. He will work with social work to see if there is an opportunity for this. I will continue to follow him close while in house. Erika Rodríguez, [facility]
[2017-08-21] MEDS: dilTIAZem CD 240 MG Capsule PO (12:11)
[2017-08-21] MEDS: Famotidine 20 MG Tablet PO ×2 (12:11→22:33)
[2017-08-21] MEDS: Gabapentin 800 MG Tablet PO ×2 (12:12→17:12)
[2017-08-21] MEDS: Lisinopril 20 MG Tablet PO (12:12)
[2017-08-21] MEDS: Ibuprofen 600 MG Tablet PO ×2 (12:15→20:11)
[2017-08-21] MEDS: oxyCODONE 5 MG Tablet PO ×3 (13:15→22:33)
--- NOTE | 2017-08-21 13:47 | CASEMGMT ---
Pt did have surgery today w/Dr. Rodríguez. Once pt's aftercare needs are better known, SW will speak again w/pt and make referrals to nursing homes in the area that take pt's insurance. DOMINICK Sapp, FOOD SUPERVISOR
[2017-08-21] MEDS: Morphine 2 MG/ML Syringe IV (15:11)
[2017-08-21] MEDS: 0.9% NaCl Peripheral Flush Adult/Peds IV ×2 (15:12→22:46)
--- NOTE | 2017-08-21 16:39 | CHAPLAIN ---
Type of Pastoral Visit ___ Initial Visit _x__ Follow-up Visit ___ On-call Visit ___ General Patient Visit ___ Spiritual Assessment ___ Family Conference ___ Bereavement ___ Rapid Response ___ Code Blue ___ Other (describe below) Pastoral Care Referral From _x__ Patient ___ Family ___ Nurse ___ Physician ___ Category Manager ___ Senior Nurse Manager ___ Other (describe below) Sacrament/Intervention _x__ Active listening ___ Anointing ___ Cheondoism ___ Bereavement ___ Communion ___ Lucy exploration ___ _x__ Life review _x__ Prayer ___ Reconciliation ___ Sacrament of Sick _x__ Supportive presence ___ Wedding ___ Other (describe below) Pastoral Comments
[2017-08-21] MEDS: QUEtiapine 25 MG Tablet PO (20:11)
[2017-08-21] MEDS: Baclofen 10 MG Tablet PO (20:11)
[2017-08-21] MEDS: Methocarbamol 750 MG Tablet PO (20:11)
[2017-08-21] MEDS: traZODone 50 MG Tablet PO (22:33)
[2017-08-22] VITALS (8 sets, daily range): BP systolic 108–168; BP diastolic 57–88; PULSE 82–97; RESP 16–18; TEMP 36.3–37.5; O2SAT 97–99
[2017-08-22] MEDS: Piperacil/Tazobactam 3.375 GM/50 ML ML IV (05:42)
[2017-08-22] MEDS: Nystatin Powder 15gm Bottle 1 APPLIC TOPICAL ×2 (05:44→14:41)
[2017-08-22] MEDS: cloNIDine HCl 0.1 MG Tablet PO ×5 (05:46→22:30)
[2017-08-22 06:12] LABS: Absolute Lymphocyte Count 0.63 X10^3/ul (0.83-4.51); Absolute Neutrophil Count 2.4 X10^3/uL (2.0-7.7); Basophil# 0.07 X10^3/uL; Basophil% 1.8 % (0-1); Eosinophil# 0.07 X10^3/uL; Eosinophils% 1.8 % (0-5); Hematocrit 35.9 % (40-54); Hemoglobin 11.2 g/dl (13.0-16.5); Lymphocyte # 0.63 X10^3/ul (4.0); Lymphocyte % 15.8 % (19-41); Mean Corp Hgb Conc 31.2 g/gl (32-36); Mean Corpuscular Hgb 30.8 pg (27.0-32.0); Mean Corpuscular Volume 98.6 fL (80-94); Mean Platelet Vol. 10.1 fl (6.2-12.0); Monocyte# 0.81 X10^3/uL; Monocyte% 20.3 % (0-10); Neutrophil # 2.39 X10^3/uL (2.7-7.7); Neutrophil % 59.5 % (47-70); Platelet Count 158 K/mm3 (150-450); RBC Distribution Width CV 15.2 % (11.6-14.6); RBC Distribution Width SD 53.5 fl (35.1-43.9); Red Blood Count 3.64 M/mm3 (4.6-6.2)
[2017-08-22 06:19] LABS: POSITIVE COUNT NO; POSITIVE DIFFERENTIAL NO; POSITIVE MORPHOLOGY NO
[2017-08-22] MEDS: oxyCODONE 5 MG Tablet PO ×4 (06:24→22:26)
[2017-08-22 06:44] LABS: ALB/GLOB Ratio 0.9 RATIO (0.9-2.4); AST(SGOT) 31 U/L (15-37); Alanine Aminotransfer ALT/SGPT 55 U/L (16-61); Albumin, Serum 2.5 g/dL (3.2-5.0); Alkaline Phosphatase 78 U/L (45-117); BUN 13 mg/dL (7-18); BUN/Creat Ratio 20.7 RATIO (10-20); Calcium,Total 8.2 mg/dL (8.5-10.1); Chloride 110 mmol/L (98-107); Creatinine, Serum 0.63 mg/dL (0.70-1.30); EST Glomerular Filtration Rate 138 mL/min (>60); Est Glom Filt Rate - Afr Amer 167 mL/min (>60); Estimated Creatinine Clearance 149.03 ml/min; Globulin 2.8 g/dL (2.2-4.2); Glucose 93 mg/dL (74-106); Potassium 3.8 mmol/L (3.5-5.1); Protein, Total 5.3 g/dL (6.4-8.2); Sodium Level 144 mmol/L (136-145)
[2017-08-22 06:45] LABS: Anion Gap 5 (5-15)
[2017-08-22] MEDS: Gabapentin 800 MG Tablet PO ×3 (08:05→16:25)
[2017-08-22] MEDS: Aspirin 81 MG TAB.CHEW PO (08:05)
[2017-08-22] MEDS: Folic Acid 1 MG Tablet PO (08:05)
[2017-08-22] MEDS: Multivitamins,Ther W-Minerals Tablet 1 TABLET PO (08:05)
[2017-08-22] MEDS: Thiamine Hydrochloride 100 MG Tablet PO (08:06)
[2017-08-22 08:47] LABS: Vitamin B12 487 pg/mL (211-911)
[2017-08-22] MEDS: dilTIAZem CD 240 MG Capsule PO (09:09)
[2017-08-22] MEDS: Enoxaparin 40 MG/0.4 ML Syringe SC (09:10)
[2017-08-22] MEDS: Famotidine 20 MG Tablet PO ×2 (09:11→22:29)
[2017-08-22] MEDS: Lisinopril 20 MG Tablet PO (09:11)
--- NOTE | 2017-08-22 10:19 | CASEMGMT ---
Addendum entered by Farzaneh Chairez 08/22/17 13:25: Pt's brother will likely be able to bring pt some clothing over the weekend, SW brought him a shirt and pants from the rehab unit in case his brother is not able to do this(physician had said that pt has no clothing here). Pt's tile decorator David Colon called this SW back. He states pt's mother is getting out of the senior care on Friday and they are working to get the home cleaned up for her. He states pt had mentioned going to a senior care in or near [place]. David states pt is trying to manipulate his mother into taking him back in, he states pt cannot return to her home. He states pt cannot care for himself or his mother, and pt's mother cannot care for him as she is getting over a broken hip. David states they are looking into housing options for pt as well, they are willing to help pt from a distance, and will help pt more closely if he can stay sober. David asked to be notified when pt is discharged, SW explained we will let him know when pt is discharged and where he definitively goes, will pass his name and number on to the senior care as well. DOMINICK Sapp, BLUE LINE OPERATOR Original Note: Addendum entered by Farzaneh Chairez 08/22/17 13:12: Pt's tile decorator, David Martinezer, left a message for SW regarding pt and asked SW to call him back. SW spoke w/pt, he gave this SW permission to call David Isaiah and signed a release. SW called Mr. Colon back([phone]), message left to call this SW back. DOMINICK Sapp, BLUE LINE OPERATOR Original Note: SW spoke w/pt this morning in regard to senior care placement. Pt is fully in agreement with going to SNF, pt asked about [facility], as pt's mother is there. Pt would like to stay close to [place] if possible. SW explained will call to see if they take pt's insurance. SW called [facility], they do not take pt's insurance. SW spoke w/pt again regarding facilities after looking up the closest facilities to [place] that take pt's insurance. SW explained that there are three facilities in [place] that are actually closer than most of the facilities in [facility]. Pt is agreeable to have SW send referrals to places in [place]. SW called [facility] in [place], spoke w/Letty. SW did let her know that pt's mother at this time is saying pt is not able to return home. Letty states they may be able to take pt, will review referral, they have beds and take [place]. MIRNA explained once this SW knows more definitively about dressing changes, IV antibiotics and how pt is doing with therapy, will send her these updates. Once Letty has these updates, she can start precert. SW faxed initial clinical information, and will continue to follow. DOMINICK Sapp, BLUE LINE OPERATOR
--- NOTE | 2017-08-22 10:52 | PCM.PN.HOSP ---
Patient Problems: Active and Suspected Problems Osteomyelitis of right foot (Acute) Encephalopathy (Acute) Chest pain (Acute) Anxiety (Acute) Alcohol withdrawal (Acute) Subjective: Patient with no acute events overnight per self and per nursing report. He states that his pain is controlled on oral narcotic therapy. He does state that he feels his right great toe even though has been amputated. Discussed plan of care with podiatry and infectious disease as well as patient with planned IV antibiotic therapy likely for an additional 1-2 weeks for possible tissue contamination during amputation with pending OR cultures. Patient denies fevers, chills, nausea, emesis, abdominal pain, chest pain or dyspnea. Objective: Physical Examination: General: awake, alert, oriented x 3 and cooperative, seated upright in bed in no apparent distress. Skin: normal color, turgor, no icterus, cyanosis except RLE dressed, s/p amputation w/ no drainage noted. HEENT: AT/NC, EOMI, PERRLA, MMM. Lungs: CTA bilaterally, moderate effort, mild decrease BL bases, no rales, ronchi or wheezing. Heart: Regular rate and rhythm; no gallop, rub audible. Abdomen: soft, overweight, NTTP, ND, normal BS. Extremities: no cyanosis, clubbing, see skin. Neurological: patient awake, alert, oriented x 3; cognitive function intact; pupils equally reactive to light and accomodation; cranial nerves II-XII grossly normal, moving all 4 extremities, no focal deficits, strength improving, improving, mildly to moderately globally decreased. Psychiatric: affect appears normal, no acute evidence of depressive or anxiety feelings. Vitals/I&O's: Vital Signs Temp Pulse Resp BP Pulse Ox 98.0 F 88 16 111/66 98 08/22/17 05:41 08/22/17 05:41 08/22/17 05:41 08/22/17 05:41 08/22/17 05:41 Oxygen Delivery Method Room Air Weight: 217 lb 2.485 oz Body Mass Index (BMI) 27.1 Intake and Output for Last 24 Hours 08/20/17 08/21/17 08/22/17 23:59 23:59 23:59 Intake Total 3108 / 3108 5865 / 5865 642 / 642 Output Total 2280 / 2280 Balance 3108 / 3108 3585 / 3585 642 / 642 Microbiology Past 72 Hours 08/19/17 19:05 Abs - Toe Gram Stain - Final 08/19/17 19:05 Abs - Toe Wound Culture - Preliminary Proteus vulgaris Klebsiella pneumoniae sp pneum GPC Poss Enterococcus sp Laboratory Results 08/21/17 07:20: Vitamin B12 487 08/22/17 05:40: WBC 4.0 L, RBC 3.64 L, Hgb 11.2 L, Hct 35.9 L, MCV 98.6 H, MCH 30.8, MCHC 31.2 L, RDW 15.2 H, RDW Differential 53.5 H, Plt Count 158, MPV 10.1, Immature Gran % (Auto) 0.800, Neut % (Auto) 59.5, Lymph % (Auto) 15.8 L, [place] % (Auto) 20.3 H, Eos % (Auto) 1.8, Baso % (Auto) 1.8 H, Absolute Neuts (auto) 2.4, Absolute Lymphs (auto) 0.63 L, Total Counted Not Reportable 08/22/17 05:40: Sodium 144, Potassium 3.8, Chloride 110 H, Carbon Dioxide 29.0, Anion Gap 5, BUN 13, Creatinine 0.63 L, Estim Creat Clear Calc 149.03, Est GFR (MDRD) Af Amer 167, Est GFR (MDRD) Non-Af 138, BUN/Creatinine Ratio 20.7 H, Glucose 93, Calcium 8.2 L, Total Bilirubin 0.30, AST 31, ALT 55, Alkaline Phosphatase 78, Total Protein 5.3 L, Albumin 2.5 L, Globulin 2.8, Albumin/Globulin Ratio 0.9 Current Medications Acetaminophen (Tylenol) 650 mg PO Q6H PRN PRN PRN Reason: Mild Pain (1-3)/Temp > 100.7 F Al Hydroxide/Mg Hydroxide (Mylanta Ii) 30 ml PO Q6H PRN PRN PRN Reason: dyspesia Aspirin (Aspirin, Baby) 81 mg PO DAILY@0800 [facility] Last Admin: 08/22/17 08:05 Dose: 81 mg Baclofen (Lioresal) 10 mg PO BID PRN PRN PRN Reason: PAIN Last Admin: 08/21/17 20:11 Dose: 10 mg Bisacodyl (Dulcolax) 10 mg RECTAL DAILY PRN PRN Reason: Constipation Clonidine (Catapres) 0.1 mg PO Q4 [facility] Last Admin: 08/22/17 09:18 Dose: 0.1 mg Dicyclomine HCl (Bentyl) 20 mg PO Q6H PRN PRN PRN Reason: abdominal discomfort Last Admin: 08/19/17 07:22 Dose: 20 mg Diltiazem HCl (Cardizem Cd) 240 mg PO DAILY [facility] Last Admin: 08/22/17 09:09 Dose: 240 mg Enoxaparin Sodium (Lovenox) 40 mg SC DAILY@1000 [facility] Last Admin: 08/22/17 09:10 Dose: 40 mg Famotidine (Pepcid) 20 mg PO BID [facility] Last Admin: 08/22/17 09:11 Dose: 20 mg Folic Acid (Folic Acid) 1 mg PO DAILY@0800 [facility] Last Admin: 08/22/17 08:05 Dose: 1 mg Gabapentin (Neurontin) 800 mg PO TIDCM [facility] Last Admin: 08/22/17 08:05 Dose: 800 mg Hydralazine HCl (Apresoline Iv) 10 mg IV Q4H PRN PRN PRN Reason: SBP > 160 Hydroxyzine Pamoate (Vistaril Pamoate Capsule) 50 mg PO Q6H PRN PRN PRN Reason: Mild Anxiety (score 1/3) Last Admin: 08/21/17 01:28 Dose: 50 mg Piperacillin Sod/Tazobactam Sod (Zosyn) 3.375 gm in 50 mls @ 12.5 mls/hr IV Q8 [facility] Last Admin: 08/22/17 05:42 Dose: 12.5 mls/hr Vancomycin HCl 1,500 mg/ (Sodium Chloride) 530 mls @ 250 mls/hr IV Q12H [facility] Last Admin: 08/22/17 08:04 Dose: 250 mls/hr Sodium Chloride () 250 mls @ 15 mls/hr IV .[id number] PRN PRN Reason: SALINE FLUSH Last Admin: 08/20/17 05:42 Dose: 15 mls/hr Ibuprofen (Motrin) 600 mg PO Q8H PRN PRN PRN Reason: Mild-Moderate Pain (1-5/10) Last Admin: 08/21/17 20:11 Dose: 600 mg Lisinopril (Zestril) 20 mg PO DAILY [facility] Last Admin: 08/22/17 09:11 Dose: 20 mg Loperamide HCl (Imodium) 2 mg PO Q2H PRN PRN PRN Reason: Diarrhea Last Admin: 08/20/17 19:11 Dose: 2 mg Magnesium Hydroxide (Milk Of Magnesia) 30 ml PO DAILY PRN PRN PRN Reason: Constipation Methocarbamol (Methocarbamol) 750 mg PO Q6H PRN PRN PRN Reason: Muscle Aches Last Admin: 08/21/17 20:11 Dose: 750 mg Morphine Sulfate () 1 - 2 mg IV Q4H PRN PRN PRN Reason: chest pain Last Admin: 08/21/17 15:11 Dose: 2 mg Multivitamins/Minerals ([facility]it[facility] With Minerals) [facility] Admin: 08/22/17 08:05 Dose: 1 tablet Nicotine (Nicoderm Cq (Pbkc)) 21 mg TRANSDERM. DAILY [facility] Last Admin: 08/22/17 09:10 Dose: 21 mg Nicotine Polacrilex ([place] Nicotine (Pbkc)) 4 mg PO Q2H PRN PRN PRN Reason: Nicotine Craving Last Admin: 08/20/17 19:02 Dose: 4 mg Nitroglycerin (Nitrostat) 0.4 mg SUBLINGUAL Q5M PRN PRN Reason: CHEST PAIN Nutritional Formula (Rafi - Mcalester Flavor) 1 packet PO BIDCM [facility] Last Admin: 08/22/17 08:05 Dose: 1 packet Nutritional Formula (Lactose Free) (Ensure Enlive) 120 ml PO 4X/DAY [facility] Last Admin: 08/22/17 09:12 Dose: 120 ml Nystatin (Mycostatin Powder) 1 applic TOPICAL TID [facility] PRN Reason: Protocol Last Admin: 08/22/17 05:44 Dose: 1 applicatio Ondansetron HCl (Zofran) 4 mg IV Q8H PRN PRN PRN Reason: NAUSEA Ondansetron HCl (Zofran Odt) 4 mg PO Q6H PRN PRN PRN Reason: NAUSEA Oxycodone HCl (Oxyir) 5 mg PO Q4H PRN PRN PRN Reason: SEVERE PAIN (6-10/10) Last Admin: 08/22/17 06:24 Dose: 5 mg Pramipexole Dihydrochloride (Mirapex) 0.25 mg PO Q12H PRN PRN PRN Reason: Restless legs Quetiapine Fumarate (Seroquel) 25 mg PO Q6H PRN PRN PRN Reason: Moderate Anxiety (score 2/3) Last Admin: 08/21/17 20:11 Dose: 25 mg Senna (Senokot) 1 tablet PO QHS PRN PRN Reason: Constipation Sodium Chloride () 5 - 30 ml IV UD PRN PRN Reason: SALINE FLUSH Last Admin: 08/21/17 22:46 Dose: 10 ml Thiamine HCl (Vitamin B1) 100 mg PO DAILYCM [facility] Last Admin: 08/22/17 08:06 Dose: 100 mg Trazodone HCl (Desyrel) 50 mg PO QHS [facility] Last Admin: 08/21/17 22:33 Dose: 50 mg Medical Necessity - Tobacco Use Smoking Status: Current every day smoker Tobacco Use: Cigarettes Assessment/Plan Active and Suspected Problems Osteomyelitis of right foot (Acute) Encephalopathy (Acute) Chest pain (Acute) Anxiety (Acute) Alcohol withdrawal (Acute) The patient is a 62 y/o M w/ PMHx: HTN, Hx Prostate CA, Chronic Back Pain, Urinary Incontinence, Anxiety and Depression, EtOH Abuse who presents to the [facility] ED on 08/18/17, brought in per his [employer] with confusion and onset midsternal chest pain ongoing for several months with recent decision for sobriety with acute EtOH withdrawal sxs. (1) Infected Right Foot Wounds w/ R 2nd Toe Ulcer and R Hallus Ulcer w/ Acute Osteomyelitis: Present on admission, unclear injury timeline as noted ongoing EtOH binge x 3 weeks with likely no clothing, including sock change during that time. Wound Cx, MRSA Wound pending. Maintained on IV Vanc and Zosyn, plain film with concern for osteo, follow-up MRI Foot w/ osteomyelitis of the phalanges of the first and second toes, Podiatry consulted and ID consulted. Given high risk for loss to follow-up and wound care, best option surgical intervention. OR 08/21/17 with amputation of hallux and second toe right foot with closure. CRP, ESR normal levels. Discussed w/ ID and podiatry, will plan IV abx therapy for at least 1-2 weeks, pending final Wound Cx from OR. Will need SNF for continued dressing changes (qweek w/ betadine gauze and kerlex wrap), plan follow-up upcoming week with podiatry. PT, OT evaluation pending. CM aware of SNF needs. (2) Acute EtOH Withdrawal: Patient was initiated and completed new vision protocol of ativan, continue PRN Seroquel, Catapres, Bentyl, Vistaril, antiemetics, Tylenol. Mag, phos normal levels. Maintain on CIWA protocol. Maintain on MVI, thiamine, folic acid. (3) Encephalopathy: Likely secondary to #1, #2, #4, resolved, although possibly chronic component secondary to prolonged EtOH Abuse and exposure, CT Head without acute findings, UA unremarkable, CXR not performed but unremarkable exam per admission ED/physician. (4) Chest Pain: Suspected more secondary to anxiety. No ongoing chest pain overnight following admission. EKG in ED no acute findings, initial trop normal ?1. Maintained on a monitored bed to assure no acute myocardial infarction with serial cardiac enzymes and EKGs which remained unremarkable. 08/19/17 AM nuclear stress testing unremarkable. FLP not marked appearing. Mag and phos normal level. (5) Abnormal Liver Enzymes: Admission AST/ALT 158/158, Alk phos 122, likely secondary to his EtOH Abuse and recent binge, improved, 08/20/17 AST/ALT 59/83, 08/22/17 AST/ALT 31/55. (5) Tobacco Abuse: Encouraged cessation, inpatient consultation per RT, NR if desired. (6) Confirmed HTN history: Maintain on home ACEI, Cardizem, PRN hydralazine. (7) Anxiety and Depression: Not on regimen, would benefit from outpatient therapy and likely initiation SSRI. (8) GERD: Famotidine. (9) Chronic Moderate to Severe Protein-Calorie Malnutrition: Evidenced by habitus, muscle and fat loss, secondary to co-morbidities and EtOH Abuse, maintain on supplementations, nutrition consulted. (10) Chronic Macrocytic Anemia: Admission Hgb 12.3, repeat 12.4, stable, vitamin B12 normal level, folic acid normal level, Fe panel and ferritin not marked appearing levels, likely secondary to EtOH Abuse, maintained on folic acid and vitamin B12 as noted. (11) DVT Prophylaxis: SCDs, lovenox. Code Visit Inpatient E&M: 60266 Subs Hosp L2
--- NOTE | 2017-08-22 10:54 | PN_ITS ---
Patient Problems: Active and Suspected Problems Osteomyelitis of right foot (Acute) Encephalopathy (Acute) Chest pain (Acute) Anxiety (Acute) Alcohol withdrawal (Acute) Subjective: This 62-year-old male was seen bedside this morning postoperative day #1 right hallux and second toe amputation second osteomyelitis. His course was complicated with significant history of alcohol abuse and inability to care for himself at home. He has some phantom sensations to his remove toes. His pain is very controllable. He denies fever, chill, nausea, vomiting. He has been icing and elevating for swelling and discomfort controlled. - Physical Exam General: Alert, Oriented x3, Cooperative HEENT: Atraumatic Extremities: No cyanosis, Capillary Refill Less than 3 Seconds - All digits remaining right foot; 3, 4, 5. Capillary refill time is less than 3 seconds the dorsal and plantar aspects of both amputation sites., No Calf Tenderness - Negative Dontae and Ram right, Edema - Minimal to surgical amputation site right foot, Peripheral Pulses Normal Skin: Incision - Hallux and second toe amputation incisions are well aligned and coapted with Prolene suture in place. There is no gapping, erythema, purulence, streaking, or odor noted. There is no necrosis or eschar formation. There is mild to moderate hematogenous drainage on the inner bandages only. Musculoskeletal: No Tenderness to Palpation of Joints or Extremities, Muscle Wasting, - - Hallux and second toe amputation intact. Compartments of the foot and ankle and leg remain soft right lower extremity Neurological: - - Lack of epicritic sensation light touch right foot Psych/Mental Status: Normal Affect, Appropriate Vital Signs Temp Pulse Resp BP Pulse Ox 98.0 F 88 16 111/66 98 08/22/17 05:41 08/22/17 05:41 08/22/17 05:41 08/22/17 05:41 08/22/17 05:41 Oxygen Delivery Method Room Air Weight: 98.5 kg Body Mass Index (BMI) 27.1 Intake and Output for Last 24 Hours 08/20/17 08/21/17 08/22/17 23:59 23:59 23:59 Intake Total 3108 / 3108 5865 / 5865 642 / 642 Output Total 2280 / 2280 Balance 3108 / 3108 3585 / 3585 642 / 642 Microbiology Past 72 Hours 08/19/17 19:05 Gram Stain - Final Abs - Toe Wound Culture - Preliminary Proteus vulgaris Klebsiella pneumoniae sp pneum GPC Poss Enterococcus sp Laboratory Tests Past 24 Hrs 08/21/17 08/22/17 08/22/17 07:20 05:40 05:40 WBC 4.0 L RBC 3.64 L Hgb 11.2 L Hct 35.9 L MCV 98.6 H MCH 30.8 MCHC 31.2 L RDW 15.2 H RDW Differential 53.5 H Plt Count 158 MPV 10.1 Immature Gran % (Auto) 0.800 Neut % (Auto) 59.5 Lymph % (Auto) 15.8 L [place] % (Auto) 20.3 H Eos % (Auto) 1.8 Baso % (Auto) 1.8 H Absolute Neuts (auto) 2.4 Absolute Lymphs (auto) 0.63 L Total Counted Not Reportable Sodium 144 Potassium 3.8 Chloride 110 H Carbon Dioxide 29.0 Anion Gap 5 BUN 13 Creatinine 0.63 L Estim Creat Clear Calc 149.03 Est GFR (MDRD) Af Amer 167 Est GFR (MDRD) Non-Af 138 BUN/Creatinine Ratio 20.7 H Glucose 93 Calcium 8.2 L Total Bilirubin 0.30 AST 31 ALT 55 Alkaline Phosphatase 78 Total Protein 5.3 L Albumin 2.5 L Globulin 2.8 Albumin/Globulin Ratio 0.9 Vitamin B12 487 Medical Necessity - Tobacco Use Smoking Status: Current every day smoker Tobacco Use: Cigarettes Assessment/Plan Active and Suspected Problems Osteomyelitis of right foot (Acute) Encephalopathy (Acute) Chest pain (Acute) Anxiety (Acute) Alcohol withdrawal (Acute) Postoperative day #1 second toe amputation secondary to right second toe infected ulcer with osteomyelitis Operative day #1 hallux amputation secondary to right hallux infected ulcers with osteomyelitis Hammer toe right foot Malnutrition Other comorbidities including alcoholic encephalopathy, alcohol abuse, and anxiety I reviewed and discussed his case today. His postoperative x-rays demonstrate adequate amputation of the first and second toe. His vitals remained stable and he has no leukocytosis. Intraoperative clinically appear that we are aware proximal to the level of the infected bone. The first and second metatarsal phalangeal joints were disarticulated and clearance fragments were sent to pathology microbiology from the proximal phalanges. These results are pending. It is noted he continues on IV antibiotics and I would not hesitate to provide an additional 1-2 weeks for additional soft tissue coverage per infectious disease recommendations. Continue management is appreciated. I recommend strict nonweightbearing to the right lower extremity with a surgical shoe and crutches. His dressing was changed today and I recommend this is changed within the next 3-4 days with Betadine gauze over the incision sites and well-padded gauze Kerlix and Riccardo wrap. I encouraged residential facility placement he is not able to; remain safe at home alone at this time. To continue nutritional supplements of Rafi to optimize healing. Alcohol use cessation was discussed and recommended. It is okay to discharge from a podiatry surgical standpoint. I recommend he [facility] up at the [facility] in 1 week; call [phone] to confirm appointment time and date. Please do not hesitate to call if you have any questions. Erika Rodríguez DPM [facility] [phone]
--- NOTE | 2017-08-22 10:58 | NURSING ---
Dr Rodríguez had been in and just changed dressing. will leave in place.
--- NOTE | 2017-08-22 11:00 | PN_ITS ---
Patient Problems: Active and Suspected Problems Osteomyelitis of right foot (Acute) Encephalopathy (Acute) Chest pain (Acute) Anxiety (Acute) Alcohol withdrawal (Acute) Subjective: Patient with no acute events overnight per self and per nursing report. He states that his pain is controlled on oral narcotic therapy. He does state that he feels his right great toe even though has been amputated. Discussed plan of care with podiatry and infectious disease as well as patient with planned IV antibiotic therapy likely for an additional 1-2 weeks for possible tissue contamination during amputation with pending OR cultures. Patient denies fevers, chills, nausea, emesis, abdominal pain, chest pain or dyspnea. Objective: Physical Examination: General: awake, alert, oriented x 3 and cooperative, seated upright in bed in no apparent distress. Skin: normal color, turgor, no icterus, cyanosis except RLE dressed, s/p amputation w/ no drainage noted. HEENT: AT/NC, EOMI, PERRLA, MMM. Lungs: CTA bilaterally, moderate effort, mild decrease BL bases, no rales, ronchi or wheezing. Heart: Regular rate and rhythm; no gallop, rub audible. Abdomen: soft, overweight, NTTP, ND, normal BS. Extremities: no cyanosis, clubbing, see skin. Neurological: patient awake, alert, oriented x 3; cognitive function intact; pupils equally reactive to light and accomodation; cranial nerves II-XII grossly normal, moving all 4 extremities, no focal deficits, strength improving , improving, mildly to moderately globally decreased. Psychiatric: affect appears normal, no acute evidence of depressive or anxiety feelings. Vitals/I&O's: Vital Signs Temp Pulse Resp BP Pulse Ox 98.0 F 88 16 111/66 98 08/22/17 05:41 08/22/17 05:41 08/22/17 05:41 08/22/17 05:41 08/22/17 05:41 Oxygen Delivery Method Room Air Weight: 217 lb 2.485 oz Body Mass Index (BMI) 27.1 Intake and Output for Last 24 Hours 08/20/17 08/21/17 08/22/17 23:59 23:59 23:59 Intake Total 3108 / 3108 5865 / 5865 642 / 642 Output Total 2280 / 2280 Balance 3108 / 3108 3585 / 3585 642 / 642 Microbiology Past 72 Hours 08/19/17 19:05 Abs - Toe Gram Stain - Final 08/19/17 19:05 Abs - Toe Wound Culture - Preliminary Proteus vulgaris Klebsiella pneumoniae sp pneum GPC Poss Enterococcus sp Laboratory Results 08/21/17 07:20: Vitamin B12 487 08/22/17 05:40: WBC 4.0 L, RBC 3.64 L, Hgb 11.2 L, Hct 35.9 L, MCV 98.6 H, MCH 30.8, MCHC 31.2 L, RDW 15.2 H, RDW Differential 53.5 H, Plt Count 158, MPV 10.1 , Immature Gran % (Auto) 0.800, Neut % (Auto) 59.5, Lymph % (Auto) 15.8 L, [place] % (Auto) 20.3 H, Eos % (Auto) 1.8, Baso % (Auto) 1.8 H, Absolute Neuts (auto) 2.4, Absolute Lymphs (auto) 0.63 L, Total Counted Not Reportable 08/22/17 05:40: Sodium 144, Potassium 3.8, Chloride 110 H, Carbon Dioxide 29.0, Anion Gap 5, BUN 13, Creatinine 0.63 L, Estim Creat Clear Calc 149.03, Est GFR ( MDRD) Af Amer 167, Est GFR (MDRD) Non-Af 138, BUN/Creatinine Ratio 20.7 H, Glucose 93, Calcium 8.2 L, Total Bilirubin 0.30, AST 31, ALT 55, Alkaline Phosphatase 78, Total Protein 5.3 L, Albumin 2.5 L, Globulin 2.8, Albumin/ Globulin Ratio 0.9 Current Medications Acetaminophen (Tylenol) 650 mg PO Q6H PRN PRN PRN Reason: Mild Pain (1-3)/Temp > 100.7 F Al Hydroxide/Mg Hydroxide (Mylanta Ii) 30 ml PO Q6H PRN PRN PRN Reason: dyspesia Aspirin (Aspirin, Baby) 81 mg PO DAILY@0800 [facility] Last Admin: 08/22/17 08:05 Dose: 81 mg Baclofen (Lioresal) 10 mg PO BID PRN PRN PRN Reason: PAIN Last Admin: 08/21/17 20:11 Dose: 10 mg Bisacodyl (Dulcolax) 10 mg RECTAL DAILY PRN PRN Reason: Constipation Clonidine (Catapres) 0.1 mg PO Q4 [facility] Last Admin: 08/22/17 09:18 Dose: 0.1 mg Dicyclomine HCl (Bentyl) 20 mg PO Q6H PRN PRN PRN Reason: abdominal discomfort Last Admin: 08/19/17 07:22 Dose: 20 mg Diltiazem HCl (Cardizem Cd) 240 mg PO DAILY [facility] Last Admin: 08/22/17 09:09 Dose: 240 mg Enoxaparin Sodium (Lovenox) 40 mg SC DAILY@1000 [facility] Last Admin: 08/22/17 09:10 Dose: 40 mg Famotidine (Pepcid) 20 mg PO BID [facility] Last Admin: 08/22/17 09:11 Dose: 20 mg Folic Acid (Folic Acid) 1 mg PO DAILY@0800 [facility] Last Admin: 08/22/17 08:05 Dose: 1 mg Gabapentin (Neurontin) 800 mg PO TIDCM [facility] Last Admin: 08/22/17 08:05 Dose: 800 mg Hydralazine HCl (Apresoline Iv) 10 mg IV Q4H PRN PRN PRN Reason: SBP > 160 Hydroxyzine Pamoate (Vistaril Pamoate Capsule) 50 mg PO Q6H PRN PRN PRN Reason: Mild Anxiety (score 1/3) Last Admin: 08/21/17 01:28 Dose: 50 mg Piperacillin Sod/Tazobactam Sod (Zosyn) 3.375 gm in 50 mls @ 12.5 mls/hr IV Q8 [facility] Last Admin: 08/22/17 05:42 Dose: 12.5 mls/hr Vancomycin HCl 1,500 mg/ (Sodium Chloride) 530 mls @ 250 mls/hr IV Q12H [facility] Last Admin: 08/22/17 08:04 Dose: 250 mls/hr Sodium Chloride () 250 mls @ 15 mls/hr IV .[id number] PRN PRN Reason: SALINE FLUSH Last Admin: 08/20/17 05:42 Dose: 15 mls/hr Ibuprofen (Motrin) 600 mg PO Q8H PRN PRN PRN Reason: Mild-Moderate Pain (1-5/10) Last Admin: 08/21/17 20:11 Dose: 600 mg Lisinopril (Zestril) 20 mg PO DAILY [facility] Last Admin: 08/22/17 09:11 Dose: 20 mg Loperamide HCl (Imodium) 2 mg PO Q2H PRN PRN PRN Reason: Diarrhea Last Admin: 08/20/17 19:11 Dose: 2 mg Magnesium Hydroxide (Milk Of Magnesia) 30 ml PO DAILY PRN PRN PRN Reason: Constipation Methocarbamol (Methocarbamol) 750 mg PO Q6H PRN PRN PRN Reason: Muscle Aches Last Admin: 08/21/17 20:11 Dose: 750 mg Morphine Sulfate () 1 - 2 mg IV Q4H PRN PRN PRN Reason: chest pain Last Admin: 08/21/17 15:11 Dose: 2 mg Multivitamins/Minerals (Multivitamin With Minerals) [facility] Last Admin: 08/22/17 08:05 Dose: 1 tablet Nicotine (Nicoderm Cq (Pbkc)) 21 mg TRANSDERM. DAILY [facility] Last Admin: 08/22/17 09:10 Dose: 21 mg Nicotine Polacrilex (Rugby Nicotine (Pbkc)) 4 mg PO Q2H PRN PRN PRN Reason: Nicotine Craving Last Admin: 08/20/17 19:02 Dose: 4 mg Nitroglycerin (Nitrostat) 0.4 mg SUBLINGUAL Q5M PRN PRN Reason: CHEST PAIN Nutritional Formula (Rafi - Blain Flavor) 1 packet PO BIDCM [facility] Last Admin: 08/22/17 08:05 Dose: 1 packet Nutritional Formula (Lactose Free) (Ensure Enlive) 120 ml PO 4X/DAY [facility] Last Admin: 08/22/17 09:12 Dose: 120 ml Nystatin (Mycostatin Powder) 1 applic TOPICAL TID [facility] PRN Reason: Protocol Last Admin: 08/22/17 05:44 Dose: 1 applicatio Ondansetron HCl (Zofran) 4 mg IV Q8H PRN PRN PRN Reason: NAUSEA Ondansetron HCl (Zofran Odt) 4 mg PO Q6H PRN PRN PRN Reason: NAUSEA Oxycodone HCl (Oxyir) 5 mg PO Q4H PRN PRN PRN Reason: SEVERE PAIN (6-10/10) Last Admin: 08/22/17 06:24 Dose: 5 mg Pramipexole Dihydrochloride (Mirapex) 0.25 mg PO Q12H PRN PRN PRN Reason: Restless legs Quetiapine Fumarate (Seroquel) 25 mg PO Q6H PRN PRN PRN Reason: Moderate Anxiety (score 2/3) Last Admin: 08/21/17 20:11 Dose: 25 mg Senna (Senokot) 1 tablet PO QHS PRN PRN Reason: Constipation Sodium Chloride () 5 - 30 ml IV UD PRN PRN Reason: SALINE FLUSH Last Admin: 08/21/17 22:46 Dose: 10 ml Thiamine HCl (Vitamin B1) 100 mg PO DAILYCM [facility] Last Admin: 08/22/17 08:06 Dose: 100 mg Trazodone HCl (Desyrel) 50 mg PO QHS [facility] Last Admin: 08/21/17 22:33 Dose: 50 mg Medical Necessity - Tobacco Use Smoking Status: Current every day smoker Tobacco Use: Cigarettes Assessment/Plan Active and Suspected Problems Osteomyelitis of right foot (Acute) Encephalopathy (Acute) Chest pain (Acute) Anxiety (Acute) Alcohol withdrawal (Acute) The patient is a 62 y/o M w/ PMHx: HTN, Hx Prostate CA, Chronic Back Pain, Urinary Incontinence, Anxiety and Depression, EtOH Abuse who presents to [facility] ED on 08/18/17, brought in per his Gnosticist with confusion and onset midsternal chest pain ongoing for several months with recent decision for sobriety with acute EtOH withdrawal sxs. (1) Infected Right Foot Wounds w/ R 2nd Toe Ulcer and R Hallus Ulcer w/ Acute Osteomyelitis: Present on admission, unclear injury timeline as noted ongoing EtOH binge x 3 weeks with likely no clothing, including sock change during that time. Wound Cx, MRSA Wound pending. Maintained on IV Vanc and Zosyn, plain film with concern for osteo, follow-up MRI Foot w/ osteomyelitis of the phalanges of the first and second toes, Podiatry consulted and ID consulted. Given high risk for loss to follow-up and wound care, best option surgical intervention. OR 08/21 with amputation of hallux and second toe right foot with closure. CRP, ESR normal levels. Discussed w/ ID and podiatry, will plan IV abx therapy for at least 1-2 weeks, pending final Wound Cx from OR. Will need SNF for continued dressing changes (qweek w/ betadine gauze and kerlex wrap), plan follow-up upcoming week with podiatry. PT, OT evaluation pending. CM aware of SNF needs. (2) Acute EtOH Withdrawal: Patient was initiated and completed new vision protocol of ativan, continue PRN Seroquel, Catapres, Bentyl, Vistaril, antiemetics, Tylenol. Mag, phos normal levels. Maintain on CIWA protocol. Maintain on MVI, thiamine, folic acid. (3) Encephalopathy: Likely secondary to #1, #2, #4, resolved, although possibly chronic component secondary to prolonged EtOH Abuse and exposure, CT Head without acute findings, UA unremarkable, CXR not performed but unremarkable exam per admission ED/physician. (4) Chest Pain: Suspected more secondary to anxiety. No ongoing chest pain overnight following admission. EKG in ED no acute findings, initial trop normal ?1. Maintained on a monitored bed to assure no acute myocardial infarction with serial cardiac enzymes and EKGs which remained unremarkable. 08/19/17 AM nuclear stress testing unremarkable. FLP not marked appearing. Mag and phos normal level. (5) Abnormal Liver Enzymes: Admission AST/ALT 158/158, Alk phos 122, likely secondary to his EtOH Abuse and recent binge, improved, 08/20/17 AST/ALT 59/83, AST/ALT 31/55. (5) Tobacco Abuse: Encouraged cessation, inpatient consultation per RT, NR if desired. (6) Confirmed HTN history: Maintain on home ACEI, Cardizem, PRN hydralazine. (7) Anxiety and Depression: Not on regimen, would benefit from outpatient therapy and likely initiation SSRI. (8) GERD: Famotidine. (9) Chronic Moderate to Severe Protein-Calorie Malnutrition: Evidenced by habitus, muscle and fat loss, secondary to co-morbidities and EtOH Abuse, maintain on supplementations, nutrition consulted. (10) Chronic Macrocytic Anemia: Admission Hgb 12.3, repeat 12.4, stable, vitamin B12 normal level, folic acid normal level, Fe panel and ferritin not marked appearing levels, likely secondary to EtOH Abuse, maintained on folic acid and vitamin B12 as noted. (11) DVT Prophylaxis: SCDs, lovenox. Code Visit Inpatient E&M: 02387 Subs Hosp L2
--- NOTE | 2017-08-22 11:01 | PCM.DC.POD ---
Discharge Diet: No Restrictions, - - jeb supplementation Discharge Activity: Use Crutches Weight Bearing Status: No weight bearing - right surgical shoe Keep extremity elevated above heart level: Right Leg Call your doctor if your incision/area has: Continuous Slow Oozing, Sudden Increased Bleeding, Increased Pain/ Swelling, Increased Redness, Foul Smelling Discharge, Swelling at the incision site Call your doctor if you observe: Fever of 101 or Higher, Calf discomfort, Uncontrolled pain Cleanse incision/area with: - - change dressing once a week (within 3-4 days) with betadine gauze, gauze to amputation sites and foot dorsum, kerlix, and tico wrap applied from amputation site and end on the leg. Allergies/Adverse Reactions: Allergies ciprofloxacin [From Cipro] Adverse Reaction (Verified 08/18/17 14:29) FELL FLAT ON MY FACE PT STATES MAKES ME FALL DOWN Medications to take at Discharge Baclofen [Baclofen] 10 mg PO BID PRN 08/19/17 Diltiazem HCl [Diltiazem 24Hr ER] 240 mg PO DAILY 08/19/17 Gabapentin [Neurontin] 800 mg PO TID 08/19/17 Lisinopril [Lisinopril] 20 mg PO DAILY 08/19/17 Primary Care Physician: Care Physician,No Primary [Primary Care Provider] - Please Follow Up With: Erika Rodríguez DPM When: [facility] week [facility]; [phone] Proposed Discharge Date: 08/22/17
[2017-08-22] MEDS: Senna Tablet 1 TABLET PO (11:34)
--- NOTE | 2017-08-22 13:23 | PN.ID_ITS ---
Patient Problems: Active and Suspected Problems Encephalopathy (Acute) Chest pain (Acute) Anxiety (Acute) Alcohol withdrawal (Acute) Subjective: Feeling ok, mild foot pain, no fever, no n/v/d. - Physical Exam General: Alert, Cooperative Lungs: Clear to auscultation, Normal air movement Cardiovascular: Regular rate, Regular Rhythm Abdomen: Soft, Non Tender, Non-Distended Skin: Incision - foot wrapped Vital Signs Temp Pulse Resp BP Pulse Ox 98.9 F 82 18 108/57 L 97 08/22/17 10:58 08/22/17 10:58 08/22/17 10:58 08/22/17 10:58 08/22/17 10:58 Oxygen Delivery Method Room Air Weight: 98.5 kg Body Mass Index (BMI) 27.1 Intake and Output for Last 24 Hours 08/20/17 08/21/17 08/22/17 23:59 23:59 23:59 Intake Total 3108 / 3108 5865 / 5865 2792 / 2792 Output Total 2280 / 2280 550 / 550 Balance 3108 / 3108 3585 / 3585 2242 / 2242 Microbiology Past 72 Hours 08/21/17 Unknown Gram Stain - Final Tissue - Other Wound Culture - Preliminary Gram negative tres 08/21/17 Unknown Gram Stain - Final Tissue - Other Wound Culture - Preliminary No growth-Final to follow 08/21/17 Unknown Gram Stain - Final Tissue - Other Wound Culture - Preliminary No growth-Final to follow 08/19/17 19:05 Gram Stain - Final Abs - Toe Wound Culture - Preliminary Proteus vulgaris Klebsiella pneumoniae sp pneum GPC Poss Enterococcus sp Laboratory Tests Past 24 Hrs 08/21/17 08/22/17 08/22/17 07:20 05:40 05:40 WBC 4.0 L RBC 3.64 L Hgb 11.2 L Hct 35.9 L MCV 98.6 H MCH 30.8 MCHC 31.2 L RDW 15.2 H RDW Differential 53.5 H Plt Count 158 MPV 10.1 Immature Gran % (Auto) 0.800 Neut % (Auto) 59.5 Lymph % (Auto) 15.8 L [place] % (Auto) 20.3 H Eos % (Auto) 1.8 Baso % (Auto) 1.8 H Absolute Neuts (auto) 2.4 Absolute Lymphs (auto) 0.63 L Total Counted Not Reportable Sodium 144 Potassium 3.8 Chloride 110 H Carbon Dioxide 29.0 Anion Gap 5 BUN 13 Creatinine 0.63 L Estim Creat Clear Calc 149.03 Est GFR (MDRD) Af Amer 167 Est GFR (MDRD) Non-Af 138 BUN/Creatinine Ratio 20.7 H Glucose 93 Calcium 8.2 L Total Bilirubin 0.30 AST 31 ALT 55 Alkaline Phosphatase 78 Total Protein 5.3 L Albumin 2.5 L Globulin 2.8 Albumin/Globulin Ratio 0.9 Vitamin B12 487 Medical Necessity - Tobacco Use Smoking Status: Current every day smoker Tobacco Use: Cigarettes Route of nutrition/ use of supplements: [] Nutritional Intake: [] IV Site: [] Oneil Catheter: [] - Assessment/Plan Antibiotics: [] Assessment/Plan: [] Active and Suspected Problems Encephalopathy (Acute) Chest pain (Acute) Anxiety (Acute) Alcohol withdrawal (Acute) R 1st and 2nd toe wound with underlying osteo - wound cx with klebs, providencia , enterococcus. Taken to OR 08/[address] Rodríguez for amputation of toes. Surg cx now with GNR. Narrow abx to vanc, ceftriaxone, flagyl. Likely will need picc on Friday for course of iv abx, but will re-eval based on cx results. Etoh withdrawal - alt/ast improving. Thank you,
[2017-08-22] MEDS: metroNIDAZOLE 500 MG Tablet PO ×2 (14:41→22:27)
--- NOTE | 2017-08-22 15:25 | CASEMGMT ---
MIRNA faxed updated information to Letty at [facility] in [place](part of [place]), they can take pt. They will start precert on Friday however as the IV antibiotics needed will be confirmed on Friday. MIRNA let Letty know that pt's traffic supervisor, David Colon, is involved with pt and family and is looking for housing options for pt, as he also told this SW that pt cannot go back to live w/his mother. MIRNA gave David's number to Letty. SW to follow up on Friday w/Letty at [facility] in [place](p: [phone], f: [phone]), will fax her updated progress notes, ID notes with definitive IV antibiotics, and PT/OT notes. SW also to let pt's traffic supervisor David Colon know when and where pt is discharged([phone]). DOMINICK Sapp, COUNT TEAM MEMBER
[2017-08-22] MEDS: 0.9% NaCl Peripheral Flush Adult/Peds IV (20:35)
[2017-08-22] MEDS: Acetaminophen 325 MG Tablet 650 MG PO (22:26)
[2017-08-22] MEDS: QUEtiapine 25 MG Tablet PO (22:27)
[2017-08-23] VITALS (14 sets, daily range): BP systolic 119–144; BP diastolic 64–87; PULSE 78–92; RESP 16–18; TEMP 36.2–37.6; O2SAT 93–97
[2017-08-23] MEDS: cloNIDine HCl 0.1 MG Tablet PO ×6 (01:35→21:21)
[2017-08-23] MEDS: oxyCODONE 5 MG Tablet PO ×6 (01:35→21:48)
[2017-08-23] MEDS: metroNIDAZOLE 500 MG Tablet PO ×3 (05:31→21:21)
[2017-08-23] MEDS: Nystatin Powder 15gm Bottle 1 APPLIC TOPICAL ×3 (05:31→21:21)
[2017-08-23 07:14] LABS: Absolute Lymphocyte Count 0.71 X10^3/ul (0.83-4.51); Absolute Neutrophil Count 2.2 X10^3/uL (2.0-7.7); Basophil# 0.04 X10^3/uL; Eosinophil# 0.04 X10^3/uL; Hematocrit 34.3 % (40-54); Lymphocyte # 0.71 X10^3/ul (4.0); Lymphocyte % 18.3 % (19-41); Mean Corp Hgb Conc 32.1 g/gl (32-36); Mean Corpuscular Hgb 31.3 pg (27.0-32.0); Mean Corpuscular Volume 97.7 fL (80-94); Mean Platelet Vol. 10.3 fl (6.2-12.0); Monocyte# 0.81 X10^3/uL; Monocyte% 20.9 % (0-10); Neutrophil # 2.24 X10^3/uL (2.7-7.7); POSITIVE COUNT NO; POSITIVE DIFFERENTIAL NO; POSITIVE MORPHOLOGY NO; Platelet Count 158 K/mm3 (150-450); RBC Distribution Width CV 14.9 % (11.6-14.6); RBC Distribution Width SD 51.8 fl (35.1-43.9); Red Blood Count 3.51 M/mm3 (4.6-6.2); White Blood Count 3.9 K/mm3 (4.4-11.0)
[2017-08-23 07:39] LABS: ALB/GLOB Ratio 0.8 RATIO (0.9-2.4); AST(SGOT) 24 U/L (15-37); Alanine Aminotransfer ALT/SGPT 45 U/L (16-61); Albumin, Serum 2.5 g/dL (3.2-5.0); Alkaline Phosphatase 82 U/L (45-117); Anion Gap 5 (5-15); BUN 11 mg/dL (7-18); BUN/Creat Ratio 18.4 RATIO (10-20); Calcium,Total 8.4 mg/dL (8.5-10.1); Chloride 109 mmol/L (98-107); EST Glomerular Filtration Rate 146 mL/min (>60); Est Glom Filt Rate - Afr Amer 177 mL/min (>60); Estimated Creatinine Clearance 156.48 ml/min; Globulin 3.1 g/dL (2.2-4.2); Glucose 119 mg/dL (74-106); Potassium 3.2 mmol/L (3.5-5.1); Protein, Total 5.6 g/dL (6.4-8.2); Sodium Level 141 mmol/L (136-145)
[2017-08-23] MEDS: Gabapentin 800 MG Tablet PO ×3 (08:00→16:42)
[2017-08-23] MEDS: Aspirin 81 MG TAB.CHEW PO (08:03)
[2017-08-23] MEDS: Multivitamins,Ther W-Minerals Tablet 1 TABLET PO (08:04)
[2017-08-23] MEDS: Thiamine Hydrochloride 100 MG Tablet PO (08:04)
[2017-08-23] MEDS: Folic Acid 1 MG Tablet PO (08:04)
[2017-08-23] MEDS: 0.9% NaCl Peripheral Flush Adult/Peds IV (08:22)
[2017-08-23] MEDS: Ibuprofen 600 MG Tablet PO ×2 (08:22→16:42)
--- NOTE | 2017-08-23 08:35 | PCM.PN.HOSP ---
Patient Problems: Active and Suspected Problems Encephalopathy (Acute) Chest pain (Acute) Anxiety (Acute) Alcohol withdrawal (Acute) Subjective: Patient without acute events overnight per self and RN report. Patient amenable to need for SNF with likely additional 1-2 weeks abx therapy or as otherwise recommended per ID and Podiatry. He is aware awaiting likely final wound Cx 08/25/17 prior to PICC and final abx regimen decisions with likely SNF transition Friday-Friday secondary to inability to initiate precertification request until final abx regimen determined. PT/OT evaluation w/ recommended continued gait training, transfer training to avoid falls. Patient denies fevers, chills, nausea, emesis, abdominal pain, chest pain or dyspnea. Objective: Physical Examination: General: awake, alert, oriented x 3 and cooperative, seated upright, NAD. Skin: normal color, turgor, no icterus, cyanosis except RLE dressed, s/p amputation w/ small amount of serosanguinous drainage noted on dressing. HEENT: AT/NC, EOMI, PERRLA, MMM. Lungs: CTA bilaterally, moderate effort, mild decrease BL bases, no rales, ronchi or wheezing. Heart: Regular rate and rhythm; no gallop, rub audible. Abdomen: soft, overweight, NTTP, ND, normal BS. Extremities: no cyanosis, clubbing, see skin. Neurological: patient awake, alert, oriented x 3; cognitive function intact; pupils equally reactive to light and accomodation; cranial nerves II-XII grossly normal, moving all 4 extremities, no focal deficits, strength improving, mildly to moderately globally decreased. Psychiatric: affect appears normal, no acute evidence of depressive or anxiety feelings. Vitals/I&O's: Vital Signs Temp Pulse Resp BP Pulse Ox 98.1 F 92 18 143/85 H 95 08/23/17 05:35 08/23/17 05:35 08/23/17 05:35 08/23/17 05:35 08/23/17 05:32 Oxygen Delivery Method Room Air Weight: 217 lb 2.485 oz Body Mass Index (BMI) 27.1 Intake and Output for Last 24 Hours 08/21/17 08/22/17 08/23/17 23:59 23:59 23:59 Intake Total 5865 / 5865 3992 / 3992 1525 / 1525 Output Total 2280 / 2280 1050 / 1050 175 / 175 Balance 3585 / 3585 2942 / 2942 1350 / 1350 Microbiology Past 72 Hours 08/21/17 Unknown Tissue - Other Gram Stain - Final 08/21/17 Unknown Tissue - Other Wound Culture - Preliminary Gram negative tres 08/21/17 Unknown Tissue - Other Gram Stain - Final 08/21/17 Unknown Tissue - Other Wound Culture - Preliminary No growth aerobically. 08/19/17 19:05 Abs - Toe Gram Stain - Final 08/19/17 19:05 Abs - Toe Wound Culture - Final Proteus vulgaris Klebsiella pneumoniae sp pneum Enterococcus faecalis 08/21/17 Unknown Tissue - Other Gram Stain - Final 08/21/17 Unknown Tissue - Other Wound Culture - Preliminary No growth-Final to follow Laboratory Results 08/21/17 07:20: Vitamin B12 487 08/23/17 06:50: WBC 3.9 L, RBC 3.51 L, Hgb 11.0 L, Hct 34.3 L, MCV 97.7 H, MCH 31.3, MCHC 32.1, RDW 14.9 H, RDW Differential 51.8 H, Plt Count 158, MPV 10.3, Immature Gran % (Auto) 0.800, Neut % (Auto) 58.0, Lymph % (Auto) 18.3 L, [place] % (Auto) 20.9 H, Eos % (Auto) 1.0, Baso % (Auto) 1.0, Absolute Neuts (auto) 2.2, Absolute Lymphs (auto) 0.71 L, Total Counted Not Reportable 08/23/17 06:50: Sodium 141, Potassium 3.2 L, Chloride 109 H, Carbon Dioxide 27.0, Anion Gap 5, BUN 11, Creatinine 0.60 L, Estim Creat Clear Calc 156.48, Est GFR (MDRD) Af Amer 177, Est GFR (MDRD) Non-Af 146, BUN/Creatinine Ratio 18.4, Glucose 119 H, Calcium 8.4 L, Total Bilirubin 0.30, AST 24, ALT 45, Alkaline Phosphatase 82, Total Protein 5.6 L, Albumin 2.5 L, Globulin 3.1, Albumin/Globulin Ratio 0.8 L Current Medications Acetaminophen (Tylenol) 650 mg PO Q6H PRN PRN PRN Reason: Mild Pain (1-3)/Temp > 100.7 F Last Admin: 08/22/17 22:26 Dose: 650 mg Al Hydroxide/Mg Hydroxide (Mylanta Ii) 30 ml PO Q6H PRN PRN PRN Reason: dyspesia Aspirin (Aspirin, Baby) 81 mg PO DAILY@0800 [facility] Last Admin: 08/23/17 08:03 Dose: 81 mg Baclofen (Lioresal) 10 mg PO BID PRN PRN PRN Reason: PAIN Last Admin: 08/21/17 20:11 Dose: 10 mg Bisacodyl (Dulcolax) 10 mg RECTAL DAILY PRN PRN Reason: Constipation Clonidine (Catapres) 0.1 mg PO Q4 [facility] Last Admin: 08/23/17 05:31 Dose: 0.1 mg Dicyclomine HCl (Bentyl) 20 mg PO Q6H PRN PRN PRN Reason: abdominal discomfort Last Admin: 08/19/17 07:22 Dose: 20 mg Diltiazem HCl (Cardizem Cd) 240 mg PO DAILY [facility] Last Admin: 08/22/17 09:09 Dose: 240 mg Enoxaparin Sodium (Lovenox) 40 mg SC DAILY@1000 [facility] Last Admin: 08/22/17 09:10 Dose: 40 mg Famotidine (Pepcid) 20 mg PO BID [facility] Last Admin: 08/22/17 22:29 Dose: 20 mg Folic Acid (Folic Acid) 1 mg PO DAILY@0800 [facility] Last Admin: 08/23/17 08:04 Dose: 1 mg Gabapentin (Neurontin) 800 mg PO TIDCM [facility] Last Admin: 08/23/17 08:00 Dose: 800 mg Hydralazine HCl (Apresoline Iv) 10 mg IV Q4H PRN PRN PRN Reason: SBP > 160 Hydroxyzine Pamoate (Vistaril Pamoate Capsule) 50 mg PO Q6H PRN PRN PRN Reason: Mild Anxiety (score 1/3) Last Admin: 08/21/17 01:28 Dose: 50 mg Vancomycin HCl 1,500 mg/ (Sodium Chloride) 530 mls @ 250 mls/hr IV Q12H [facility] Last Admin: 08/23/17 07:58 Dose: 250 mls/hr Sodium Chloride () 250 mls @ 15 mls/hr IV .[id number] PRN PRN Reason: SALINE FLUSH Last Admin: 08/20/17 05:42 Dose: 15 mls/hr Ceftriaxone Sodium 2 gm/ (Sodium Chloride) 50 mls @ 100 mls/hr IV Q24 [facility] Last Admin: 08/22/17 14:30 Dose: 100 mls/hr Ibuprofen (Motrin) 600 mg PO Q8H PRN PRN PRN Reason: Mild-Moderate Pain (1-5/10) Last Admin: 08/23/17 08:22 Dose: 600 mg Lisinopril (Zestril) 20 mg PO DAILY [facility] Last Admin: 08/22/17 09:11 Dose: 20 mg Loperamide HCl (Imodium) 2 mg PO Q2H PRN PRN PRN Reason: Diarrhea Last Admin: 08/20/17 19:11 Dose: 2 mg Magnesium Hydroxide (Milk Of Magnesia) 30 ml PO DAILY PRN PRN PRN Reason: Constipation Methocarbamol (Methocarbamol) 750 mg PO Q6H PRN PRN PRN Reason: Muscle Aches Last Admin: 08/21/17 20:11 Dose: 750 mg Metronidazole (Flagyl) 500 mg PO TID [facility] Last Admin: 08/23/17 05:31 Dose: 500 mg Morphine Sulfate () 1 - 2 mg IV Q4H PRN PRN PRN Reason: chest pain Last Admin: 08/21/17 15:11 Dose: 2 mg Multivitamins/Minerals ([facility]itamin With Minerals) [facility] Last Admin: 08/23/17 08:04 Dose: 1 tablet Nicotine (Nicoderm Cq (Pbkc)) 21 mg TRANSDERM. DAILY [facility] Last Admin: 08/23/17 08:03 Dose: 21 mg Nicotine Polacrilex (Rugby Nicotine (Pbkc)) 4 mg PO Q2H PRN PRN PRN Reason: Nicotine Craving Last Admin: 08/22/17 11:35 Dose: 4 mg Nitroglycerin (Nitrostat) 0.4 mg SUBLINGUAL Q5M PRN PRN Reason: CHEST PAIN Nutritional Formula (Rafi - O'Brien Flavor) 1 packet PO BIDCM [facility] Last Admin: 08/23/17 08:04 Dose: 1 packet Nutritional Formula (Lactose Free) (Ensure Enlive) 120 ml PO 4X/DAY [facility] Last Admin: 08/22/17 22:27 Dose: 120 ml Nystatin (Mycostatin Powder) 1 applic TOPICAL TID [facility] PRN Reason: Protocol Last Admin: 08/23/17 05:31 Dose: 1 applicatio Ondansetron HCl (Zofran) 4 mg IV Q8H PRN PRN PRN Reason: NAUSEA Ondansetron HCl (Zofran Odt) 4 mg PO Q6H PRN PRN PRN Reason: NAUSEA Oxycodone HCl (Oxyir) 5 mg PO Q4H PRN PRN PRN Reason: SEVERE PAIN (6-10/10) Last Admin: 08/23/17 05:31 Dose: 5 mg Pramipexole Dihydrochloride (Mirapex) 0.25 mg PO Q12H PRN PRN PRN Reason: Restless legs Quetiapine Fumarate (Seroquel) 25 mg PO Q6H PRN PRN PRN Reason: Moderate Anxiety (score 2/3) Last Admin: 08/22/17 22:27 Dose: 25 mg Senna (Senokot) 1 tablet PO QHS PRN PRN Reason: Constipation Last Admin: 08/22/17 11:34 Dose: 1 tablet Sodium Chloride () 5 - 30 ml IV UD PRN PRN Reason: SALINE FLUSH Last Admin: 08/23/17 08:22 Dose: 5 ml Thiamine HCl (Vitamin B1) [facility] Last Admin: 08/23/17 08:04 Dose: 100 mg Trazodone HCl (Desyrel) 50 mg PO QHS [facility] Last Admin: 08/22/17 22:33 Dose: Not Given Medical Necessity - Tobacco Use Smoking Status: Current every day smoker Tobacco Use: Cigarettes Assessment/Plan Active and Suspected Problems Encephalopathy (Acute) Chest pain (Acute) Anxiety (Acute) Alcohol withdrawal (Acute) The patient is a 62 y/o M w/ PMHx: HTN, Hx Prostate CA, Chronic Back Pain, Urinary Incontinence, Anxiety and Depression, EtOH Abuse who presents to the [facility] ED on 08/18/17, brought in per his Congregation with confusion and onset midsternal chest pain ongoing for several months with recent decision for sobriety with acute EtOH withdrawal sxs. (1) Infected Right Foot Wounds w/ R 2nd Toe Ulcer and R Hallus Ulcer w/ Acute Osteomyelitis w/ Initial Wound Cx w/ klebs, providencia, enterococcus: Present on admission, unclear injury timeline as noted ongoing EtOH binge x 3 weeks with likely no clothing, including sock change during that time. ED plain film with concern for osteo, follow-up MRI Foot w/ osteomyelitis of the phalanges of the first and second toes, Podiatry consulted and ID consulted. CRP, ESR normal levels. Given high risk for loss to follow-up and wound care, best option surgical intervention. OR 08/21/17 with amputation of hallux and second toe right foot with closure. Discussed w/ ID and podiatry, will plan IV abx therapy for at least 1-2 weeks or as otherwise directed per ID. Pending final Wound Cx from OR. Will need SNF for continued dressing changes (qweek w/ betadine gauze and kerlex wrap), plan follow-up upcoming week with podiatry. Wound Cx, MRSA Wound obtained w/ klebs, providencia, enterococcus. Maintained on IV Vanc and Zosyn initially-->transitioned 08/22/17 per ID to vanc, rocephin and flagyl. Plan once OR Wound Cx result likely 08/25/17, to place PICC for course IV abx at SNF. (2) Acute EtOH Withdrawal: Patient was initiated and completed new vision protocol of ativan, continue PRN Seroquel, Catapres, Bentyl, Vistaril, antiemetics, Tylenol. Mag, phos normal levels. LFT levels improving. Maintain on CIWA protocol. Maintain on MVI, thiamine, folic acid. (3) Encephalopathy: Likely secondary to #1, #2, #4, resolved, although possibly chronic component secondary to prolonged EtOH Abuse and exposure, CT Head without acute findings, UA unremarkable, CXR not performed but unremarkable exam per admission ED/physician. (4) Chest Pain: Suspected more secondary to anxiety. No ongoing chest pain overnight following admission. EKG in ED no acute findings, initial trop normal ?1. Maintained on a monitored bed to assure no acute myocardial infarction with serial cardiac enzymes and EKGs which remained unremarkable. 08/19/17 AM nuclear stress testing unremarkable. FLP not marked appearing. Mag and phos normal level. (5) Abnormal Liver Enzymes: Admission AST/ALT 158/158, Alk phos 122, likely secondary to his EtOH Abuse and recent binge, improved, 08/23/17 AST/ALT 24/45. (5) Tobacco Abuse: Encouraged cessation, inpatient consultation per RT, NR if desired. (6) Confirmed HTN history: Maintain on home ACEI, Cardizem, PRN hydralazine. (7) Anxiety and Depression: Not on regimen, would benefit from outpatient therapy and likely initiation SSRI. (8) GERD: Famotidine. (9) Chronic Moderate to Severe Protein-Calorie Malnutrition: Evidenced by habitus, muscle and fat loss, secondary to co-morbidities and EtOH Abuse, maintain on supplementations, nutrition consulted. (10) Chronic Macrocytic Anemia: Admission Hgb 12.3, 08/23/17 Hgb 11, vitamin B12 normal level, folic acid normal level, Fe panel and ferritin not marked appearing levels, likely secondary to EtOH Abuse, maintained on folic acid and vitamin B12 as noted. (11) DVT Prophylaxis: SCDs, lovenox. Code Visit Inpatient E&M: 16851 Subs Hosp L2
--- NOTE | 2017-08-23 08:42 | PN_ITS ---
Patient Problems: Active and Suspected Problems Encephalopathy (Acute) Chest pain (Acute) Anxiety (Acute) Alcohol withdrawal (Acute) Subjective: Patient without acute events overnight per self and RN report. Patient amenable to need for SNF with likely additional 1-2 weeks abx therapy or as otherwise recommended per ID and Podiatry. He is aware awaiting likely final wound Cx 08/25 prior to PICC and final abx regimen decisions with likely SNF transition Friday-Friday secondary to inability to initiate precertification request until final abx regimen determined. PT/OT evaluation w/ recommended continued gait training, transfer training to avoid falls. Patient denies fevers, chills, nausea, emesis, abdominal pain, chest pain or dyspnea. Objective: Physical Examination: General: awake, alert, oriented x 3 and cooperative, seated upright, NAD. Skin: normal color, turgor, no icterus, cyanosis except RLE dressed, s/p amputation w/ small amount of serosanguinous drainage noted on dressing. HEENT: AT/NC, EOMI, PERRLA, MMM. Lungs: CTA bilaterally, moderate effort, mild decrease BL bases, no rales, ronchi or wheezing. Heart: Regular rate and rhythm; no gallop, rub audible. Abdomen: soft, overweight, NTTP, ND, normal BS. Extremities: no cyanosis, clubbing, see skin. Neurological: patient awake, alert, oriented x 3; cognitive function intact; pupils equally reactive to light and accomodation; cranial nerves II-XII grossly normal, moving all 4 extremities, no focal deficits, strength improving , mildly to moderately globally decreased. Psychiatric: affect appears normal, no acute evidence of depressive or anxiety feelings. Vitals/I&O's: Vital Signs Temp Pulse Resp BP Pulse Ox 98.1 F 92 18 143/85 H 95 08/23/17 05:35 08/23/17 05:35 08/23/17 05:35 08/23/17 05:35 08/23/17 05:32 Oxygen Delivery Method Room Air Weight: 217 lb 2.485 oz Body Mass Index (BMI) 27.1 Intake and Output for Last 24 Hours 08/21/17 08/22/17 08/23/17 23:59 23:59 23:59 Intake Total 5865 / 5865 3992 / 3992 1525 / 1525 Output Total 2280 / 2280 1050 / 1050 175 / 175 Balance 3585 / 3585 2942 / 2942 1350 / 1350 Microbiology Past 72 Hours 08/21/17 Unknown Tissue - Other Gram Stain - Final 08/21/17 Unknown Tissue - Other Wound Culture - Preliminary Gram negative tres 08/21/17 Unknown Tissue - Other Gram Stain - Final 08/21/17 Unknown Tissue - Other Wound Culture - Preliminary No growth aerobically. 08/19/17 19:05 Abs - Toe Gram Stain - Final 08/19/17 19:05 Abs - Toe Wound Culture - Final Proteus vulgaris Klebsiella pneumoniae sp pneum Enterococcus faecalis 08/21/17 Unknown Tissue - Other Gram Stain - Final 08/21/17 Unknown Tissue - Other Wound Culture - Preliminary No growth-Final to follow Laboratory Results 08/21/17 07:20: Vitamin B12 487 08/23/17 06:50: WBC 3.9 L, RBC 3.51 L, Hgb 11.0 L, Hct 34.3 L, MCV 97.7 H, MCH 31.3, MCHC 32.1, RDW 14.9 H, RDW Differential 51.8 H, Plt Count 158, MPV 10.3, Immature Gran % (Auto) 0.800, Neut % (Auto) 58.0, Lymph % (Auto) 18.3 L, [place] % (Auto) 20.9 H, Eos % (Auto) 1.0, Baso % (Auto) 1.0, Absolute Neuts (auto) 2.2, Absolute Lymphs (auto) 0.71 L, Total Counted Not Reportable 08/23/17 06:50: Sodium 141, Potassium 3.2 L, Chloride 109 H, Carbon Dioxide 27.0 , Anion Gap 5, BUN 11, Creatinine 0.60 L, Estim Creat Clear Calc 156.48, Est GFR (MDRD) Af Amer 177, Est GFR (MDRD) Non-Af 146, BUN/Creatinine Ratio 18.4, Glucose 119 H, Calcium 8.4 L, Total Bilirubin 0.30, AST 24, ALT 45, Alkaline Phosphatase 82, Total Protein 5.6 L, Albumin 2.5 L, Globulin 3.1, Albumin/ Globulin Ratio 0.8 L Current Medications Acetaminophen (Tylenol) 650 mg PO Q6H PRN PRN PRN Reason: Mild Pain (1-3)/Temp > 100.7 F Last Admin: 08/22/17 22:26 Dose: 650 mg Al Hydroxide/Mg Hydroxide (Mylanta Ii) 30 ml PO Q6H PRN PRN PRN Reason: dyspesia Aspirin (Aspirin, Baby) 81 mg PO DAILY@0800 [facility] Last Admin: 08/23/17 08:03 Dose: 81 mg Baclofen (Lioresal) 10 mg PO BID PRN PRN PRN Reason: PAIN Last Admin: 08/21/17 20:11 Dose: 10 mg Bisacodyl (Dulcolax) 10 mg RECTAL DAILY PRN PRN Reason: Constipation Clonidine (Catapres) 0.1 mg PO Q4 [facility] Last Admin: 08/23/17 05:31 Dose: 0.1 mg Dicyclomine HCl (Bentyl) 20 mg PO Q6H PRN PRN PRN Reason: abdominal discomfort Last Admin: 08/19/17 07:22 Dose: 20 mg Diltiazem HCl (Cardizem Cd) 240 mg PO DAILY [facility] Last Admin: 08/22/17 09:09 Dose: 240 mg Enoxaparin Sodium (Lovenox) 40 mg SC DAILY@1000 [facility] Last Admin: 08/22/17 09:10 Dose: 40 mg Famotidine (Pepcid) 20 mg PO BID [facility] Last Admin: 08/22/17 22:29 Dose: 20 mg Folic Acid (Folic Acid) 1 mg PO DAILY@0800 [facility] Last Admin: 08/23/17 08:04 Dose: 1 mg Gabapentin (Neurontin) 800 mg PO TIDCM [facility] Last Admin: 08/23/17 08:00 Dose: 800 mg Hydralazine HCl (Apresoline Iv) 10 mg IV Q4H PRN PRN PRN Reason: SBP > 160 Hydroxyzine Pamoate (Vistaril Pamoate Capsule) 50 mg PO Q6H PRN PRN PRN Reason: Mild Anxiety (score 1/3) Last Admin: 08/21/17 01:28 Dose: 50 mg Vancomycin HCl 1,500 mg/ (Sodium Chloride) 530 mls @ 250 mls/hr IV Q12H [facility] Last Admin: 08/23/17 07:58 Dose: 250 mls/hr Sodium Chloride () 250 mls @ 15 mls/hr IV .[id number] PRN PRN Reason: SALINE FLUSH Last Admin: 08/20/17 05:42 Dose: 15 mls/hr Ceftriaxone Sodium 2 gm/ (Sodium Chloride) 50 mls @ 100 mls/hr IV Q24 [facility] Last Admin: 08/22/17 14:30 Dose: 100 mls/hr Ibuprofen (Motrin) 600 mg PO Q8H PRN PRN PRN Reason: Mild-Moderate Pain (1-5/10) Last Admin: 08/23/17 08:22 Dose: 600 mg Lisinopril (Zestril) 20 mg PO DAILY [facility] Last Admin: 08/22/17 09:11 Dose: 20 mg Loperamide HCl (Imodium) 2 mg PO Q2H PRN PRN PRN Reason: Diarrhea Last Admin: 08/20/17 19:11 Dose: 2 mg Magnesium Hydroxide (Milk Of Magnesia) 30 ml PO DAILY PRN PRN PRN Reason: Constipation Methocarbamol (Methocarbamol) 750 mg PO Q6H PRN PRN PRN Reason: Muscle Aches Last Admin: 08/21/17 20:11 Dose: 750 mg Metronidazole (Flagyl) 500 mg PO TID [facility] Last Admin: 08/23/17 05:31 Dose: 500 mg Morphine Sulfate () 1 - 2 mg IV Q4H PRN PRN PRN Reason: chest pain Last Admin: 08/21/17 15:11 Dose: 2 mg Multivitamins/Minerals ([facility]ivitamin With Minerals) [facility] Last Admin: 08/23/17 08:04 Dose: 1 tablet Nicotine (Nicoderm Cq (Pbkc)) 21 mg TRANSDERM. DAILY [facility] Last Admin: 08/23/17 08:03 Dose: 21 mg Nicotine Polacrilex (Rugby Nicotine (Pbkc)) 4 mg PO Q2H PRN PRN PRN Reason: Nicotine Craving Last Admin: 08/22/17 11:35 Dose: 4 mg Nitroglycerin (Nitrostat) 0.4 mg SUBLINGUAL Q5M PRN PRN Reason: CHEST PAIN Nutritional Formula (Rafi - [place] Flavor) 1 packet PO BIDCM [facility] Last Admin: 08/23/17 08:04 Dose: 1 packet Nutritional Formula (Lactose Free) (Ensure Enlive) 120 ml PO 4X/DAY [facility] Last Admin: 08/22/17 22:27 Dose: 120 ml Nystatin (Mycostatin Powder) 1 applic TOPICAL TID [facility] PRN Reason: Protocol Last Admin: 08/23/17 05:31 Dose: 1 applicatio Ondansetron HCl (Zofran) 4 mg IV Q8H PRN PRN PRN Reason: NAUSEA Ondansetron HCl (Zofran Odt) 4 mg PO Q6H PRN PRN PRN Reason: NAUSEA Oxycodone HCl (Oxyir) 5 mg PO Q4H PRN PRN PRN Reason: SEVERE PAIN (6-10/10) Last Admin: 08/23/17 05:31 Dose: 5 mg Pramipexole Dihydrochloride (Mirapex) 0.25 mg PO Q12H PRN PRN PRN Reason: Restless legs Quetiapine Fumarate (Seroquel) 25 mg PO Q6H PRN PRN PRN Reason: Moderate Anxiety (score 2/3) Last Admin: 08/22/17 22:27 Dose: 25 mg Senna (Senokot) 1 tablet PO QHS PRN PRN Reason: Constipation Last Admin: 08/22/17 11:34 Dose: 1 tablet Sodium Chloride () 5 - 30 ml IV UD PRN PRN Reason: SALINE FLUSH Last Admin: 08/23/17 08:22 Dose: 5 ml Thiamine HCl (Vitamin B1) [facility] Last Admin: 08/23/17 08:04 Dose: 100 mg Trazodone HCl (Desyrel) 50 mg PO QHS [facility] Last Admin: 08/22/17 22:33 Dose: Not Given Medical Necessity - Tobacco Use Smoking Status: Current every day smoker Tobacco Use: Cigarettes Assessment/Plan Active and Suspected Problems Encephalopathy (Acute) Chest pain (Acute) Anxiety (Acute) Alcohol withdrawal (Acute) The patient is a 62 y/o M w/ PMHx: HTN, Hx Prostate CA, Chronic Back Pain, Urinary Incontinence, Anxiety and Depression, EtOH Abuse who presents to the [facility] ED on 08/18/17, brought in per his Orth[employer] with confusion and onset midsternal chest pain ongoing for several months with recent decision for sobriety with acute EtOH withdrawal sxs. (1) Infected Right Foot Wounds w/ R 2nd Toe Ulcer and R Hallus Ulcer w/ Acute Osteomyelitis w/ Initial Wound Cx w/ klebs, providencia, enterococcus: Present on admission, unclear injury timeline as noted ongoing EtOH binge x 3 weeks with likely no clothing, including sock change during that time. ED plain film with concern for osteo, follow-up MRI Foot w/ osteomyelitis of the phalanges of the first and second toes, Podiatry consulted and ID consulted. CRP, ESR normal levels. Given high risk for loss to follow-up and wound care, best option surgical intervention. OR 08/21/17 with amputation of hallux and second toe right foot with closure. Discussed w/ ID and podiatry, will plan IV abx therapy for at least 1-2 weeks or as otherwise directed per ID. Pending final Wound Cx from OR. Will need SNF for continued dressing changes (qweek w/ betadine gauze and kerlex wrap), plan follow-up upcoming week with podiatry. Wound Cx, MRSA Wound obtained w/ klebs, providencia, enterococcus. Maintained on IV Vanc and Zosyn initially-->transitioned 08/22/17 per ID to vanc, rocephin and flagyl. Plan once OR Wound Cx result likely 08/25/17, to place PICC for course IV abx at SNF. (2) Acute EtOH Withdrawal: Patient was initiated and completed new vision protocol of ativan, continue PRN Seroquel, Catapres, Bentyl, Vistaril, antiemetics, Tylenol. Mag, phos normal levels. LFT levels improving. Maintain on CIWA protocol. Maintain on MVI, thiamine, folic acid. (3) Encephalopathy: Likely secondary to #1, #2, #4, resolved, although possibly chronic component secondary to prolonged EtOH Abuse and exposure, CT Head without acute findings, UA unremarkable, CXR not performed but unremarkable exam per admission ED/physician. (4) Chest Pain: Suspected more secondary to anxiety. No ongoing chest pain overnight following admission. EKG in ED no acute findings, initial trop normal ?1. Maintained on a monitored bed to assure no acute myocardial infarction with serial cardiac enzymes and EKGs which remained unremarkable. 08/19/17 AM nuclear stress testing unremarkable. FLP not marked appearing. Mag and phos normal level. (5) Abnormal Liver Enzymes: Admission AST/ALT 158/158, Alk phos 122, likely secondary to his EtOH Abuse and recent binge, improved, 08/23/17 AST/ALT 24/45. (5) Tobacco Abuse: Encouraged cessation, inpatient consultation per RT, NR if desired. (6) Confirmed HTN history: Maintain on home ACEI, Cardizem, PRN hydralazine. (7) Anxiety and Depression: Not on regimen, would benefit from outpatient therapy and likely initiation SSRI. (8) GERD: Famotidine. (9) Chronic Moderate to Severe Protein-Calorie Malnutrition: Evidenced by habitus, muscle and fat loss, secondary to co-morbidities and EtOH Abuse, maintain on supplementations, nutrition consulted. (10) Chronic Macrocytic Anemia: Admission Hgb 12.3, 08/23/17 Hgb 11, vitamin B12 normal level, folic acid normal level, Fe panel and ferritin not marked appearing levels, likely secondary to EtOH Abuse, maintained on folic acid and vitamin B12 as noted. (11) DVT Prophylaxis: SCDs, lovenox. Code Visit Inpatient E&M: 50778 Subs Hosp L2
[2017-08-23] MEDS: dilTIAZem CD 240 MG Capsule PO (09:38)
[2017-08-23] MEDS: Lisinopril 20 MG Tablet PO (09:38)
[2017-08-23] MEDS: Enoxaparin 40 MG/0.4 ML Syringe SC (09:41)
[2017-08-23] MEDS: Famotidine 20 MG Tablet PO ×2 (09:42→21:21)
[2017-08-23] MEDS: QUEtiapine 25 MG Tablet PO ×2 (09:51→21:48)
--- NOTE | 2017-08-23 14:42 | NURSING ---
[employer] notified of order for PICC line placement. Plan is for [employer] chemical sales representative to call back with time for procedure.
[2017-08-23] MEDS: traZODone 50 MG Tablet PO (21:21)
--- NOTE | 2017-08-23 21:51 | NURSING ---
Picc line nurse here to insert PICC.
[2017-08-23] MEDS: hydrOXYzine PAM 25 MG Capsule 50 MG PO (23:41)
[2017-08-24 01:36] VITALS: BP 143/88; PULSE 81; RESP 18; TEMP 37.1; O2SAT 93
[2017-08-24 01:41] VITALS: BP 143/88; PULSE 81; RESP 18; TEMP 37.1
[2017-08-24] MEDS: cloNIDine HCl 0.1 MG Tablet PO ×6 (01:48→21:37)
[2017-08-24] MEDS: oxyCODONE 5 MG Tablet PO ×6 (01:49→22:55)
[2017-08-24 05:56] VITALS: BP 134/72; PULSE 88
[2017-08-24] MEDS: metroNIDAZOLE 500 MG Tablet PO ×3 (05:57→21:35)
[2017-08-24] MEDS: 0.9% NaCl Peripheral Flush Adult/Peds IV ×3 (05:57→20:13)
[2017-08-24] MEDS: Nystatin Powder 15gm Bottle 1 APPLIC TOPICAL ×3 (06:01→21:35)
[2017-08-24 06:04] LABS: Absolute Lymphocyte Count 0.61 X10^3/ul (0.83-4.51); Absolute Neutrophil Count 2.6 X10^3/uL (2.0-7.7); Basophil# 0.07 X10^3/uL; Basophil% 1.6 % (0-1); Eosinophils% 2.3 % (0-5); Hematocrit 34.1 % (40-54); Lymphocyte # 0.61 X10^3/ul (4.0); Lymphocyte % 13.9 % (19-41); Mean Corp Hgb Conc 32.3 g/gl (32-36); Mean Corpuscular Hgb 31.3 pg (27.0-32.0); Mean Corpuscular Volume 97.2 fL (80-94); Mean Platelet Vol. 10.2 fl (6.2-12.0); Monocyte# 0.98 X10^3/uL; Monocyte% 22.4 % (0-10); Neutrophil % 59.3 % (47-70); POSITIVE COUNT NO; POSITIVE DIFFERENTIAL NO; POSITIVE MORPHOLOGY NO; Platelet Count 171 K/mm3 (150-450); RBC Distribution Width CV 14.9 % (11.6-14.6); RBC Distribution Width SD 50.2 fl (35.1-43.9); Red Blood Count 3.51 M/mm3 (4.6-6.2); White Blood Count 4.4 K/mm3 (4.4-11.0)
[2017-08-24 06:15] LABS: ALB/GLOB Ratio 0.8 RATIO (0.9-2.4); AST(SGOT) 20 U/L (15-37); Alanine Aminotransfer ALT/SGPT 41 U/L (16-61); Albumin, Serum 2.5 g/dL (3.2-5.0); Alkaline Phosphatase 69 U/L (45-117); Anion Gap 6 (5-15); BUN 10 mg/dL (7-18); BUN/Creat Ratio 16.9 RATIO (10-20); Calcium,Total 8.2 mg/dL (8.5-10.1); Chloride 108 mmol/L (98-107); Creatinine, Serum 0.59 mg/dL (0.70-1.30); EST Glomerular Filtration Rate 148 mL/min (>60); Est Glom Filt Rate - Afr Amer 180 mL/min (>60); Estimated Creatinine Clearance 159.13 ml/min; Glucose 106 mg/dL (74-106); Potassium 3.3 mmol/L (3.5-5.1); Protein, Total 5.5 g/dL (6.4-8.2); Sodium Level 143 mmol/L (136-145)
[2017-08-24] MEDS: Lisinopril 20 MG Tablet PO (08:37)
[2017-08-24] MEDS: Folic Acid 1 MG Tablet PO (08:37)
[2017-08-24] MEDS: Aspirin 81 MG TAB.CHEW PO (08:37)
[2017-08-24] MEDS: dilTIAZem CD 240 MG Capsule PO (08:37)
[2017-08-24] MEDS: Multivitamins,Ther W-Minerals Tablet 1 TABLET PO (08:37)
[2017-08-24] MEDS: Famotidine 20 MG Tablet PO ×2 (08:37→21:35)
[2017-08-24] MEDS: Thiamine Hydrochloride 100 MG Tablet PO (08:37)
[2017-08-24] MEDS: Enoxaparin 40 MG/0.4 ML Syringe SC (08:37)
[2017-08-24] MEDS: Gabapentin 800 MG Tablet PO ×3 (08:38→16:58)
[2017-08-24 08:45] VITALS: BP 146/83; PULSE 89; RESP 18; TEMP 37.3; O2SAT 92
--- NOTE | 2017-08-24 09:02 | PCM.PN.HOSP ---
Patient Problems: Active and Suspected Problems Encephalopathy (Acute) Chest pain (Acute) Anxiety (Acute) Alcohol withdrawal (Acute) Subjective: The patient is a 62 y/o M w/ PMHx: HTN, Hx Prostate CA, Chronic Back Pain, Urinary Incontinence, Anxiety and Depression, EtOH Abuse who presents to the [facility] ED on 08/18/17, brought in per his Yazidism with confusion and onset midsternal chest pain ongoing for several months with recent decision for sobriety with acute EtOH withdrawal sxs. Patient admitted initially for acute EtOH Withdrawal primarily but following admission noted Infected Right Foot Wounds w/ R 2nd Toe Ulcer and R Hallus Ulcer w/ eventually noted Acute Osteomyelitis w/ Initial Wound Cx w/ klebs, providencia, enterococcus, OR Wound Cx w/ Morganella and Proteus. Noted unclear injury timeline as noted ongoing EtOH binge x 3 weeks with likely no clothing, including sock change during that time. ED plain film with concern for osteo, follow-up MRI Foot w/ osteomyelitis of the phalanges of the first and second toes, Podiatry consulted and ID consulted. CRP, ESR normal levels. Admission ED Wound Cx, MRSA Wound obtained w/ klebs, providencia, enterococcus and - MRSA. Given high risk for loss to follow-up and wound care, best option surgical intervention. OR 08/21/17 with amputation of hallux and second toe right foot with closure. ID and podiatry following. Maintained initially on IV Vanc and Zosyn-->transitioned 08/22/17 per ID to vanc, rocephin and flagyl. Per Podiatry and ID, plan for additional IV abx therapy for at least 1-2 weeks or as otherwise directed per ID. OR Wound Cx w/ Morganella and Proteus, thus will confer with ID 08/25/17 for final abx therapy decisions as currently appearance for possible IV cephalosporin usage. PICC placed 08/23/17 secondary to difficult access and had been placed 08/25/17 regardless. CM aware, will need SNF for continued dressing changes (qweek w/ betadine gauze and kerlex wrap), plan follow-up upcoming week with podiatry. Patient was initiated and completed new vision protocol of ativan, continue PRN Seroquel, Catapres, Bentyl, Vistaril, antiemetics, Tylenol. Mag, phos normal levels. LFT levels improved. Maintain on CIWA protocol. Maintained on MVI, thiamine, folic acid. Also noted chest pain upon admission, initially maintained on a monitored bed to assure no acute myocardial infarction with serial cardiac enzymes and EKGs which remained unremarkable. 08/19/17 AM nuclear stress testing unremarkable. FLP not marked appearing. Mag and phos normal level. Expect SNF Friday-Friday likely pending ID abx decisions per discussion with CM. Patient with no acute events overnight per self and per nursing report. Patient with PICC placement day prior with no events as IVs had fallen out and was a difficult stick therefore decision to move up PICC placement date. Patient notes some mild pain to the extremity but this improves with oral narcotic therapy. Patient remains amenable to transition to shelter facility for IV antibiotic therapy and dressing changes per podiatry once weekly. Patient denies fevers, chills, nausea, emesis, abdominal pain, chest pain or dyspnea. Objective: Physical Examination: General: awake, alert, oriented x 3 and cooperative, seated upright, NAD. Skin: normal color, turgor, no icterus, cyanosis except RLE dressed, s/p amputation w/ small amount of serosanguinous drainage, requested outer dressing change. HEENT: AT/NC, EOMI, PERRLA, MMM. Lungs: CTA bilaterally, moderate effort, mild decrease BL bases, no rales, ronchi or wheezing. Heart: Regular rate and rhythm; no gallop, rub audible. Abdomen: soft, overweight, NTTP, ND, normal BS. Extremities: no cyanosis, clubbing, see skin. Neurological: patient awake, alert, oriented x 3; cognitive function intact; pupils equally reactive to light and accomodation; cranial nerves II-XII grossly normal, moving all 4 extremities, no focal deficits, strength improving, mildly globally decreased. Psychiatric: affect appears normal, no acute evidence of depressive or anxiety feelings. Vitals/I&O's: Vital Signs Temp Pulse Resp BP Pulse Ox 99.1 F 89 18 146/83 H 92 08/24/17 07:36 08/24/17 07:36 08/24/17 07:36 08/24/17 07:36 08/24/17 07:36 Oxygen Delivery Method Room Air Weight: 217 lb 2.485 oz Body Mass Index (BMI) 27.1 Intake and Output for Last 24 Hours 08/22/17 08/23/17 08/24/17 23:59 23:59 23:59 Intake Total 3992 / 3992 3115 / 3115 1305 / 1305 Output Total 1050 / 1050 175 / 175 Balance 2942 / 2942 2940 / 2940 1305 / 1305 Microbiology Past 72 Hours 08/21/17 Unknown Tissue - Other Gram Stain - Final 08/21/17 Unknown Tissue - Other Wound Culture - Final Morganella morganii sp morgani Proteus vulgaris 08/21/17 Unknown Tissue - Other Anaerobic Culture - Preliminary Checking for anaerobes, further studies to follow. 08/21/17 Unknown Tissue - Other Gram Stain - Final 08/21/17 Unknown Tissue - Other Wound Culture - Preliminary No growth aerobically. 08/21/17 Unknown Tissue - Other Anaerobic Culture - Preliminary 08/21/17 Unknown Tissue - Other Gram Stain - Final 08/21/17 Unknown Tissue - Other Wound Culture - Preliminary No growth-Final to follow 08/21/17 Unknown Tissue - Other Anaerobic Culture - Preliminary No growth in 48 hours. 08/19/17 19:05 Abs - Toe Gram Stain - Final 08/19/17 19:05 Abs - Toe Wound Culture - Final Proteus vulgaris Klebsiella pneumoniae sp pneum Enterococcus faecalis Laboratory Results 08/24/17 05:48: WBC 4.4, RBC 3.51 L, Hgb 11.0 L, Hct 34.1 L, MCV 97.2 H, MCH 31.3, MCHC 32.3, RDW 14.9 H, RDW Differential 50.2 H, Plt Count 171, MPV 10.2, Immature Gran % (Auto) 0.500, Neut % (Auto) 59.3, Lymph % (Auto) 13.9 L, Boyle % (Auto) 22.4 H, Eos % (Auto) 2.3, Baso % (Auto) 1.6 H, Absolute Neuts (auto) 2.6, Absolute Lymphs (auto) 0.61 L, Total Counted Not Reportable 08/24/17 05:48: Sodium 143, Potassium 3.3 L, Chloride 108 H, Carbon Dioxide 29.0, Anion Gap 6, BUN 10, Creatinine 0.59 L, Estim Creat Clear Calc 159.13, Est GFR (MDRD) Af Amer 180, Est GFR (MDRD) Non-Af 148, BUN/Creatinine Ratio 16.9, Glucose 106, Calcium 8.2 L, Total Bilirubin 0.20, AST 20, ALT 41, Alkaline Phosphatase 69, Total Protein 5.5 L, Albumin 2.5 L, Globulin 3.0, Albumin/Globulin Ratio 0.8 L Current Medications Acetaminophen (Tylenol) 650 mg PO Q6H PRN PRN PRN Reason: Mild Pain (1-3)/Temp > 100.7 F Last Admin: 08/22/17 22:26 Dose: 650 mg Al Hydroxide/Mg Hydroxide (Mylanta Ii) 30 ml PO Q6H PRN PRN PRN Reason: dyspesia Aspirin (Aspirin, Baby) 81 mg PO DAILY@0800 [facility] Last Admin: 08/24/17 08:37 Dose: 81 mg Baclofen (Lioresal) 10 mg PO BID PRN PRN PRN Reason: PAIN Last Admin: 08/21/17 20:11 Dose: 10 mg Bisacodyl (Dulcolax) 10 mg RECTAL DAILY PRN PRN Reason: Constipation Clonidine (Catapres) 0.1 mg PO Q4 [facility] Last Admin: 08/24/17 08:57 Dose: 0.1 mg Dicyclomine HCl (Bentyl) 20 mg PO Q6H PRN PRN PRN Reason: abdominal discomfort Last Admin: 08/19/17 07:22 Dose: 20 mg Diltiazem HCl (Cardizem Cd) 240 mg PO DAILY [facility] Last Admin: 08/24/17 08:37 Dose: 240 mg Enoxaparin Sodium (Lovenox) 40 mg SC DAILY@1000 [facility] Last Admin: 08/24/17 08:37 Dose: 40 mg Famotidine (Pepcid) 20 mg PO BID [facility] Last Admin: 08/24/17 08:37 Dose: 20 mg Folic Acid (Folic Acid) 1 mg PO DAILY@0800 [facility] Last Admin: 08/24/17 08:37 Dose: 1 mg Gabapentin (Neurontin) 800 mg PO TIDCM [facility] Last Admin: 08/24/17 08:38 Dose: 800 mg Hydralazine HCl (Apresoline Iv) 10 mg IV Q4H PRN PRN PRN Reason: SBP > 160 Hydroxyzine Pamoate (Vistaril Pamoate Capsule) 50 mg PO Q6H PRN PRN PRN Reason: Mild Anxiety (score 1/3) Last Admin: 08/23/17 23:41 Dose: 50 mg Vancomycin HCl 1,500 mg/ (Sodium Chloride) 530 mls @ 250 mls/hr IV Q12H [facility] Last Admin: 08/23/17 21:20 Dose: 250 mls/hr Sodium Chloride () 250 mls @ 15 mls/hr IV .[id number] PRN PRN Reason: SALINE FLUSH Last Admin: 08/20/17 05:42 Dose: 15 mls/hr Ceftriaxone Sodium 2 gm/ (Sodium Chloride) 50 mls @ 100 mls/hr IV Q24 [facility] Last Admin: 08/24/17 09:00 Dose: 100 mls/hr Ibuprofen (Motrin) 600 mg PO Q8H PRN PRN PRN Reason: Mild-Moderate Pain (1-5/10) Last Admin: 08/23/17 16:42 Dose: 600 mg Lisinopril (Zestril) 20 mg PO DAILY [facility] Last Admin: 08/24/17 08:37 Dose: 20 mg Loperamide HCl (Imodium) 2 mg PO Q2H PRN PRN PRN Reason: Diarrhea Last Admin: 08/20/17 19:11 Dose: 2 mg Magnesium Hydroxide (Milk Of Magnesia) 30 ml PO DAILY PRN PRN PRN Reason: Constipation Methocarbamol (Methocarbamol) 750 mg PO Q6H PRN PRN PRN Reason: Muscle Aches Last Admin: 08/21/17 20:11 Dose: 750 mg Metronidazole (Flagyl) 500 mg PO TID [facility] Last Admin: 08/24/17 05:57 Dose: 500 mg Morphine Sulfate () 1 - 2 mg IV Q4H PRN PRN PRN Reason: chest pain Last Admin: 08/21/17 15:11 Dose: 2 mg [facility]ivitamins/Minerals ([facility]itamin With Minerals) [facility] Last Admin: 08/24/17 08:37 Dose: 1 tablet Nicotine (Nicoderm Cq (Pbkc)) 21 mg TRANSDERM. DAILY [facility] Last Admin: 08/24/17 08:57 Dose: 21 mg Nicotine Polacrilex (Rugby Nicotine (Pbkc)) 4 mg PO Q2H PRN PRN PRN Reason: Nicotine Craving Last Admin: 08/22/17 11:35 Dose: 4 mg Nitroglycerin (Nitrostat) 0.4 mg SUBLINGUAL Q5M PRN PRN Reason: CHEST PAIN Nutritional Formula (Rafi - Leslie Flavor) [facility] Last Admin: 08/24/17 08:36 Dose: 1 packet Nutritional Formula (Lactose Free) (Ensure Enlive) 120 ml PO 4X/DAY [facility] Last Admin: 08/24/17 08:52 Dose: Not Given Nystatin (Mycostatin Powder) 1 applic TOPICAL TID [facility] PRN Reason: Protocol Last Admin: 08/24/17 06:01 Dose: 1 applicatio Ondansetron HCl (Zofran) 4 mg IV Q8H PRN PRN PRN Reason: NAUSEA Ondansetron HCl (Zofran Odt) 4 mg PO Q6H PRN PRN PRN Reason: NAUSEA Oxycodone HCl (Oxyir) 5 mg PO Q4H PRN PRN PRN Reason: SEVERE PAIN (6-10/10) Last Admin: 08/24/17 05:57 Dose: 5 mg Pramipexole Dihydrochloride (Mirapex) 0.25 mg PO Q12H PRN PRN PRN Reason: Restless legs Quetiapine Fumarate (Seroquel) 25 mg PO Q6H PRN PRN PRN Reason: Moderate Anxiety (score 2/3) Last Admin: 08/23/17 21:48 Dose: 25 mg Senna (Senokot) 1 tablet PO QHS PRN PRN Reason: Constipation Last Admin: 08/22/17 11:34 Dose: 1 tablet Sodium Chloride () 5 - 30 ml IV UD PRN PRN Reason: SALINE FLUSH Last Admin: 08/24/17 05:57 Dose: 20 ml Thiamine HCl (Vitamin B1) [facility] Last Admin: 08/24/17 08:37 Dose: 100 mg Trazodone HCl (Desyrel) 50 mg PO QHS [facility] Last Admin: 08/23/17 21:21 Dose: 50 mg Medical Necessity - Tobacco Use Smoking Status: Current every day smoker Tobacco Use: Cigarettes Assessment/Plan Active and Suspected Problems Encephalopathy (Acute) Chest pain (Acute) Anxiety (Acute) Alcohol withdrawal (Acute) The patient is a 62 y/o M w/ PMHx: HTN, Hx Prostate CA, Chronic Back Pain, Urinary Incontinence, Anxiety and Depression, EtOH Abuse who presents to the [facility] ED on 08/18/17, brought in per his Yazidism with confusion and onset midsternal chest pain ongoing for several months with recent decision for sobriety with acute EtOH withdrawal sxs. (1) Infected Right Foot Wounds w/ R 2nd Toe Ulcer and R Hallus Ulcer w/ Acute Osteomyelitis w/ Initial Wound Cx w/ klebs, providencia, enterococcus, OR Wound Cx w/ Morganella and Proteus: Present on admission, unclear injury timeline as noted ongoing EtOH binge x 3 weeks with likely no clothing, including sock change during that time. ED plain film with concern for osteo, follow-up MRI Foot w/ osteomyelitis of the phalanges of the first and second toes, Podiatry consulted and ID consulted. CRP, ESR normal levels. Admission ED Wound Cx, MRSA Wound obtained w/ klebs, providencia, enterococcus and - MRSA. Given high risk for loss to follow-up and wound care, best option surgical intervention. OR 08/21/17 with amputation of hallux and second toe right foot with closure. ID and podiatry following. Maintained initially on IV Vanc and Zosyn-->transitioned 08/22/17 per ID to vanc, rocephin and flagyl. Per Podiatry and ID, plan for additional IV abx therapy for at least 1-2 weeks or as otherwise directed per ID. OR Wound Cx w/ Morganella and Proteus, thus will confer with ID 08/25/17 for final abx therapy decisions as currently appearance for possible IV cephalosporin usage. PICC placed 08/23/17 secondary to difficult access and had been placed 08/25/17 regardless. CM aware, will need SNF for continued dressing changes (qweek w/ betadine gauze and kerlex wrap), plan follow-up upcoming week with podiatry. (2) Acute EtOH Withdrawal: Patient was initiated and completed new vision protocol of ativan, continue PRN Seroquel, Catapres, Bentyl, Vistaril, antiemetics, Tylenol. Mag, phos normal levels. LFT levels improved. Maintain on CIWA protocol. Maintained on MVI, thiamine, folic acid. (3) Encephalopathy: Likely secondary to #1, #2, #4, resolved, although possibly chronic component secondary to prolonged EtOH Abuse and exposure, CT Head without acute findings, UA unremarkable, CXR not performed but unremarkable exam per admission ED/physician. (4) Chest Pain: Suspected more secondary to anxiety. No ongoing chest pain overnight following admission. EKG in ED no acute findings, initial trop normal ?1. Maintained on a monitored bed to assure no acute myocardial infarction with serial cardiac enzymes and EKGs which remained unremarkable. 08/19/17 AM nuclear stress testing unremarkable. FLP not marked appearing. Mag and phos normal level. (5) Abnormal Liver Enzymes: Admission AST/ALT 158/158, Alk phos 122, likely secondary to his EtOH Abuse and recent binge, improved, 08/24/17 AST/ALT 20/41. (5) Tobacco Abuse: Encouraged cessation, inpatient consultation per RT, NR if desired. (6) Confirmed HTN history: Maintain on home ACEI, Cardizem, PRN hydralazine. (7) Anxiety and Depression: Not on regimen, would benefit from outpatient therapy and likely initiation SSRI. (8) GERD: Famotidine. (9) Chronic Moderate to Severe Protein-Calorie Malnutrition: Evidenced by habitus, muscle and fat loss, secondary to co-morbidities and EtOH Abuse, maintain on supplementations, nutrition consulted. (10) Chronic Macrocytic Anemia: Admission Hgb 12.3, 08/24/17 Hgb 11, vitamin B12 normal level, folic acid normal level, Fe panel and ferritin not marked appearing levels, likely secondary to EtOH Abuse, maintained on folic acid and vitamin B12 as noted. (11) DVT Prophylaxis: SCDs, lovenox. Code Visit Inpatient E&M: 61138 Subs Hosp L2
--- NOTE | 2017-08-24 09:12 | PN_ITS ---
Patient Problems: Active and Suspected Problems Encephalopathy (Acute) Chest pain (Acute) Anxiety (Acute) Alcohol withdrawal (Acute) Subjective: The patient is a 62 y/o M w/ PMHx: HTN, Hx Prostate CA, Chronic Back Pain, Urinary Incontinence, Anxiety and Depression, EtOH Abuse who presents to the [facility] ED on 08/18/17, brought in per his [facility] with confusion and onset midsternal chest pain ongoing for several months with recent decision for sobriety with acute EtOH withdrawal sxs. Patient admitted initially for acute EtOH Withdrawal primarily but following admission noted Infected Right Foot Wounds w/ R 2nd Toe Ulcer and R Hallus Ulcer w/ eventually noted Acute Osteomyelitis w/ Initial Wound Cx w/ klebs, providencia, enterococcus, OR Wound Cx w/ Morganella and Proteus. Noted unclear injury timeline as noted ongoing EtOH binge x 3 weeks with likely no clothing, including sock change during that time. ED plain film with concern for osteo, follow-up MRI Foot w/ osteomyelitis of the phalanges of the first and second toes, Podiatry consulted and ID consulted. CRP, ESR normal levels. Admission ED Wound Cx, MRSA Wound obtained w / klebs, providencia, enterococcus and - MRSA. Given high risk for loss to follow-up and wound care, best option surgical intervention. OR 08/21/17 with amputation of hallux and second toe right foot with closure. ID and podiatry following. Maintained initially on IV Vanc and Zosyn-->transitioned 08/22/17 per ID to vanc, rocephin and flagyl. Per Podiatry and ID, plan for additional IV abx therapy for at least 1-2 weeks or as otherwise directed per ID. OR Wound Cx w/ Morganella and Proteus, thus will confer with ID 08/25/17 for final abx therapy decisions as currently appearance for possible IV cephalosporin usage. PICC placed 08/23/17 secondary to difficult access and had been placed 08/25/17 regardless. CM aware, will need SNF for continued dressing changes (qweek w/ betadine gauze and kerlex wrap), plan follow-up upcoming week with podiatry. Patient was initiated and completed new vision protocol of ativan, continue PRN Seroquel, Catapres, Bentyl, Vistaril, antiemetics, Tylenol. Mag, phos normal levels. LFT levels improved. Maintain on CIWA protocol. Maintained on MVI, thiamine, folic acid. Also noted chest pain upon admission, initially maintained on a monitored bed to assure no acute myocardial infarction with serial cardiac enzymes and EKGs which remained unremarkable. 08/19/17 AM nuclear stress testing unremarkable. FLP not marked appearing. Mag and phos normal level. Expect SNF Friday-Friday likely pending ID abx decisions per discussion with CM. Patient with no acute events overnight per self and per nursing report. Patient with PICC placement day prior with no events as IVs had fallen out and was a difficult stick therefore decision to move up PICC placement date. Patient notes some mild pain to the extremity but this improves with oral narcotic therapy. Patient remains amenable to transition to long-term facility for IV antibiotic therapy and dressing changes per podiatry once weekly. Patient denies fevers, chills, nausea, emesis, abdominal pain, chest pain or dyspnea. Objective: Physical Examination: General: awake, alert, oriented x 3 and cooperative, seated upright, NAD. Skin: normal color, turgor, no icterus, cyanosis except RLE dressed, s/p amputation w/ small amount of serosanguinous drainage, requested outer dressing change. HEENT: AT/NC, EOMI, PERRLA, MMM. Lungs: CTA bilaterally, moderate effort, mild decrease BL bases, no rales, ronchi or wheezing. Heart: Regular rate and rhythm; no gallop, rub audible. Abdomen: soft, overweight, NTTP, ND, normal BS. Extremities: no cyanosis, clubbing, see skin. Neurological: patient awake, alert, oriented x 3; cognitive function intact; pupils equally reactive to light and accomodation; cranial nerves II-XII grossly normal, moving all 4 extremities, no focal deficits, strength improving , mildly globally decreased. Psychiatric: affect appears normal, no acute evidence of depressive or anxiety feelings. Vitals/I&O's: Vital Signs Temp Pulse Resp BP Pulse Ox 99.1 F 89 18 146/83 H 92 08/24/17 07:36 08/24/17 07:36 08/24/17 07:36 08/24/17 07:36 08/24/17 07:36 Oxygen Delivery Method Room Air Weight: 217 lb 2.485 oz Body Mass Index (BMI) 27.1 Intake and Output for Last 24 Hours 08/22/17 08/23/17 08/24/17 23:59 23:59 23:59 Intake Total 3992 / 3992 3115 / 3115 1305 / 1305 Output Total 1050 / 1050 175 / 175 Balance 2942 / 2942 2940 / 2940 1305 / 1305 Microbiology Past 72 Hours 08/21/17 Unknown Tissue - Other Gram Stain - Final 08/21/17 Unknown Tissue - Other Wound Culture - Final Morganella morganii sp morgani Proteus vulgaris 08/21/17 Unknown Tissue - Other Anaerobic Culture - Preliminary Checking for anaerobes, further studies to follow. 08/21/17 Unknown Tissue - Other Gram Stain - Final 08/21/17 Unknown Tissue - Other Wound Culture - Preliminary No growth aerobically. 08/21/17 Unknown Tissue - Other Anaerobic Culture - Preliminary 08/21/17 Unknown Tissue - Other Gram Stain - Final 08/21/17 Unknown Tissue - Other Wound Culture - Preliminary No growth-Final to follow 08/21/17 Unknown Tissue - Other Anaerobic Culture - Preliminary No growth in 48 hours. 08/19/17 19:05 Abs - Toe Gram Stain - Final 08/19/17 19:05 Abs - Toe Wound Culture - Final Proteus vulgaris Klebsiella pneumoniae sp pneum Enterococcus faecalis Laboratory Results 08/24/17 05:48: WBC 4.4, RBC 3.51 L, Hgb 11.0 L, Hct 34.1 L, MCV 97.2 H, MCH 31.3, MCHC 32.3, RDW 14.9 H, RDW Differential 50.2 H, Plt Count 171, MPV 10.2, Immature Gran % (Auto) 0.500, Neut % (Auto) 59.3, Lymph % (Auto) 13.9 L, [place] % (Auto) 22.4 H, Eos % (Auto) 2.3, Baso % (Auto) 1.6 H, Absolute Neuts (auto) 2.6 , Absolute Lymphs (auto) 0.61 L, Total Counted Not Reportable 08/24/17 05:48: Sodium 143, Potassium 3.3 L, Chloride 108 H, Carbon Dioxide 29.0 , Anion Gap 6, BUN 10, Creatinine 0.59 L, Estim Creat Clear Calc 159.13, Est GFR (MDRD) Af Amer 180, Est GFR (MDRD) Non-Af 148, BUN/Creatinine Ratio 16.9, Glucose 106, Calcium 8.2 L, Total Bilirubin 0.20, AST 20, ALT 41, Alkaline Phosphatase 69, Total Protein 5.5 L, Albumin 2.5 L, Globulin 3.0, Albumin/ Globulin Ratio 0.8 L Current Medications Acetaminophen (Tylenol) 650 mg PO Q6H PRN PRN PRN Reason: Mild Pain (1-3)/Temp > 100.7 F Last Admin: 08/22/17 22:26 Dose: 650 mg Al Hydroxide/Mg Hydroxide (Mylanta Ii) 30 ml PO Q6H PRN PRN PRN Reason: dyspesia Aspirin (Aspirin, Baby) 81 mg PO DAILY@0800 [facility] Last Admin: 08/24/17 08:37 Dose: 81 mg Baclofen (Lioresal) 10 mg PO BID PRN PRN PRN Reason: PAIN Last Admin: 08/21/17 20:11 Dose: 10 mg Bisacodyl (Dulcolax) 10 mg RECTAL DAILY PRN PRN Reason: Constipation Clonidine (Catapres) 0.1 mg PO Q4 [facility] Last Admin: 08/24/17 08:57 Dose: 0.1 mg Dicyclomine HCl (Bentyl) 20 mg PO Q6H PRN PRN PRN Reason: abdominal discomfort Last Admin: 08/19/17 07:22 Dose: 20 mg Diltiazem HCl (Cardizem Cd) 240 mg PO DAILY [facility] Last Admin: 08/24/17 08:37 Dose: 240 mg Enoxaparin Sodium (Lovenox) 40 mg SC DAILY@1000 [facility] Last Admin: 08/24/17 08:37 Dose: 40 mg Famotidine (Pepcid) 20 mg PO BID [facility] Last Admin: 08/24/17 08:37 Dose: 20 mg Folic Acid (Folic Acid) 1 mg PO DAILY@0800 [facility] Last Admin: 08/24/17 08:37 Dose: 1 mg Gabapentin (Neurontin) 800 mg PO TIDCM [facility] Last Admin: 08/24/17 08:38 Dose: 800 mg Hydralazine HCl (Apresoline Iv) 10 mg IV Q4H PRN PRN PRN Reason: SBP > 160 Hydroxyzine Pamoate (Vistaril Pamoate Capsule) 50 mg PO Q6H PRN PRN PRN Reason: Mild Anxiety (score 1/3) Last Admin: 08/23/17 23:41 Dose: 50 mg Vancomycin HCl 1,500 mg/ (Sodium Chloride) 530 mls @ 250 mls/hr IV Q12H [facility] Last Admin: 08/23/17 21:20 Dose: 250 mls/hr Sodium Chloride () 250 mls @ 15 mls/hr IV .[id number] PRN PRN Reason: SALINE FLUSH Last Admin: 08/20/17 05:42 Dose: 15 mls/hr Ceftriaxone Sodium 2 gm/ (Sodium Chloride) 50 mls @ 100 mls/hr IV Q24 [facility] Last Admin: 08/24/17 09:00 Dose: 100 mls/hr Ibuprofen (Motrin) 600 mg PO Q8H PRN PRN PRN Reason: Mild-Moderate Pain (1-5/10) Last Admin: 08/23/17 16:42 Dose: 600 mg Lisinopril (Zestril) 20 mg PO DAILY [facility] Last Admin: 08/24/17 08:37 Dose: 20 mg Loperamide HCl (Imodium) 2 mg PO Q2H PRN PRN PRN Reason: Diarrhea Last Admin: 08/20/17 19:11 Dose: 2 mg Magnesium Hydroxide (Milk Of Magnesia) 30 ml PO DAILY PRN PRN PRN Reason: Constipation Methocarbamol (Methocarbamol) 750 mg PO Q6H PRN PRN PRN Reason: Muscle Aches Last Admin: 08/21/17 20:11 Dose: 750 mg Metronidazole (Flagyl) 500 mg PO TID [facility] Last Admin: 08/24/17 05:57 Dose: 500 mg Morphine Sulfate () 1 - 2 mg IV Q4H PRN PRN PRN Reason: chest pain Last Admin: 08/21/17 15:11 Dose: 2 mg [facility]ivitamins/Minerals ([facility] With Minerals) [facility] Last Admin: 08/24/17 08:37 Dose: 1 tablet Nicotine (Nicoderm Cq (Pbkc)) 21 mg TRANSDERM. DAILY [facility] Last Admin: 08/24/17 08:57 Dose: 21 mg Nicotine Polacrilex ([place] Nicotine (Pbkc)) 4 mg PO Q2H PRN PRN PRN Reason: Nicotine Craving Last Admin: 08/22/17 11:35 Dose: 4 mg Nitroglycerin (Nitrostat) 0.4 mg SUBLINGUAL Q5M PRN PRN Reason: CHEST PAIN Nutritional Formula ([place]afi - [place] Flavor) [facility] Last Admin: 08/24/17 08:36 Dose: 1 packet Nutritional Formula (Lactose Free) (Ensure Enlive) 120 ml PO 4X/DAY [facility] Last Admin: 08/24/17 08:52 Dose: Not Given Nystatin (Mycostatin Powder) 1 applic TOPICAL TID [facility] PRN Reason: Protocol Last Admin: 08/24/17 06:01 Dose: 1 applicatio Ondansetron HCl (Zofran) 4 mg IV Q8H PRN PRN PRN Reason: NAUSEA Ondansetron HCl (Zofran Odt) 4 mg PO Q6H PRN PRN PRN Reason: NAUSEA Oxycodone HCl (Oxyir) 5 mg PO Q4H PRN PRN PRN Reason: SEVERE PAIN (6-10/10) Last Admin: 08/24/17 05:57 Dose: 5 mg Pramipexole Dihydrochloride (Mirapex) 0.25 mg PO Q12H PRN PRN PRN Reason: Restless legs Quetiapine Fumarate (Seroquel) 25 mg PO Q6H PRN PRN PRN Reason: Moderate Anxiety (score 2/3) Last Admin: 08/23/17 21:48 Dose: 25 mg Senna (Senokot) 1 tablet PO QHS PRN PRN Reason: Constipation Last Admin: 08/22/17 11:34 Dose: 1 tablet Sodium Chloride () 5 - 30 ml IV UD PRN PRN Reason: SALINE FLUSH Last Admin: 08/24/17 05:57 Dose: 20 ml Thiamine HCl (Vitamin B1) [facility] Last Admin: 08/24/17 08:37 Dose: 100 mg Trazodone HCl (Desyrel) 50 mg PO QHS [facility] Last Admin: 08/23/17 21:21 Dose: 50 mg Medical Necessity - Tobacco Use Smoking Status: Current every day smoker Tobacco Use: Cigarettes Assessment/Plan Active and Suspected Problems Encephalopathy (Acute) Chest pain (Acute) Anxiety (Acute) Alcohol withdrawal (Acute) The patient is a 62 y/o M w/ PMHx: HTN, Hx Prostate CA, Chronic Back Pain, Urinary Incontinence, Anxiety and Depression, EtOH Abuse who presents to the [facility] ED on 08/18/17, brought in per his [facility] with confusion and onset midsternal chest pain ongoing for several months with recent decision for sobriety with acute EtOH withdrawal sxs. (1) Infected Right Foot Wounds w/ R 2nd Toe Ulcer and R Hallus Ulcer w/ Acute Osteomyelitis w/ Initial Wound Cx w/ klebs, providencia, enterococcus, OR Wound Cx w/ Morganella and Proteus: Present on admission, unclear injury timeline as noted ongoing EtOH binge x 3 weeks with likely no clothing, including sock change during that time. ED plain film with concern for osteo, follow-up MRI Foot w/ osteomyelitis of the phalanges of the first and second toes, Podiatry consulted and ID consulted. CRP, ESR normal levels. Admission ED Wound Cx, MRSA Wound obtained w/ klebs, providencia, enterococcus and - MRSA. Given high risk for loss to follow-up and wound care, best option surgical intervention. OR 08/21 with amputation of hallux and second toe right foot with closure. ID and podiatry following. Maintained initially on IV Vanc and Zosyn-->transitioned per ID to vanc, rocephin and flagyl. Per Podiatry and ID, plan for additional IV abx therapy for at least 1-2 weeks or as otherwise directed per ID. OR Wound Cx w/ Morganella and Proteus, thus will confer with ID 08/25/17 for final abx therapy decisions as currently appearance for possible IV cephalosporin usage. PICC placed 08/23/17 secondary to difficult access and had been placed 08/25/17 regardless. CM aware, will need SNF for continued dressing changes (qweek w/ betadine gauze and kerlex wrap), plan follow-up upcoming week with podiatry. (2) Acute EtOH Withdrawal: Patient was initiated and completed new vision protocol of ativan, continue PRN Seroquel, Catapres, Bentyl, Vistaril, antiemetics, Tylenol. Mag, phos normal levels. LFT levels improved. Maintain on CIWA protocol. Maintained on MVI, thiamine, folic acid. (3) Encephalopathy: Likely secondary to #1, #2, #4, resolved, although possibly chronic component secondary to prolonged EtOH Abuse and exposure, CT Head without acute findings, UA unremarkable, CXR not performed but unremarkable exam per admission ED/physician. (4) Chest Pain: Suspected more secondary to anxiety. No ongoing chest pain overnight following admission. EKG in ED no acute findings, initial trop normal ?1. Maintained on a monitored bed to assure no acute myocardial infarction with serial cardiac enzymes and EKGs which remained unremarkable. 08/19/17 AM nuclear stress testing unremarkable. FLP not marked appearing. Mag and phos normal level. (5) Abnormal Liver Enzymes: Admission AST/ALT 158/158, Alk phos 122, likely secondary to his EtOH Abuse and recent binge, improved, 08/24/17 AST/ALT 20/41. (5) Tobacco Abuse: Encouraged cessation, inpatient consultation per RT, NR if desired. (6) Confirmed HTN history: Maintain on home ACEI, Cardizem, PRN hydralazine. (7) Anxiety and Depression: Not on regimen, would benefit from outpatient therapy and likely initiation SSRI. (8) GERD: Famotidine. (9) Chronic Moderate to Severe Protein-Calorie Malnutrition: Evidenced by habitus, muscle and fat loss, secondary to co-morbidities and EtOH Abuse, maintain on supplementations, nutrition consulted. (10) Chronic Macrocytic Anemia: Admission Hgb 12.3, 08/24/17 Hgb 11, vitamin B12 normal level, folic acid normal level, Fe panel and ferritin not marked appearing levels, likely secondary to EtOH Abuse, maintained on folic acid and vitamin B12 as noted. (11) DVT Prophylaxis: SCDs, lovenox. Code Visit Inpatient E&M: 67908 Subs Hosp L2
[2017-08-24] MEDS: QUEtiapine 25 MG Tablet PO ×2 (10:16→22:55)
[2017-08-24 14:45] VITALS: BP 138/78; PULSE 81; RESP 18; TEMP 37.1; O2SAT 94
[2017-08-24] MEDS: hydrOXYzine PAM 25 MG Capsule 50 MG PO (18:51)
[2017-08-24] MEDS: 0.9% NaCl IVPB Med Flush (250 mL) 15 ML IV (20:04)
[2017-08-24 20:15] VITALS: BP 157/94; PULSE 86; RESP 18; TEMP 37.2; O2SAT 96
[2017-08-24] MEDS: traZODone 50 MG Tablet PO (22:55)
[2017-08-25] MEDS: cloNIDine HCl 0.1 MG Tablet PO ×3 (02:23→10:02)
[2017-08-25 02:25] VITALS: BP 124/71; PULSE 86; RESP 16; TEMP 37.3; O2SAT 94
[2017-08-25] MEDS: oxyCODONE 5 MG Tablet PO ×3 (04:26→14:48)
[2017-08-25] MEDS: Nystatin Powder 15gm Bottle 1 APPLIC TOPICAL ×2 (05:57→14:49)
[2017-08-25] MEDS: metroNIDAZOLE 500 MG Tablet PO ×2 (05:57→14:44)
[2017-08-25 05:59] VITALS: PULSE 84
[2017-08-25 07:37] VITALS: BP 146/83; PULSE 85; RESP 18; TEMP 37; O2SAT 92
[2017-08-25] MEDS: Folic Acid 1 MG Tablet PO (07:41)
[2017-08-25] MEDS: Gabapentin 800 MG Tablet PO ×2 (07:41→12:33)
[2017-08-25] MEDS: Multivitamins,Ther W-Minerals Tablet 1 TABLET PO (07:41)
[2017-08-25] MEDS: Aspirin 81 MG TAB.CHEW PO (07:41)
[2017-08-25] MEDS: Famotidine 20 MG Tablet PO (07:42)
[2017-08-25] MEDS: dilTIAZem CD 240 MG Capsule PO (07:42)
[2017-08-25] MEDS: Thiamine Hydrochloride 100 MG Tablet PO (07:42)
[2017-08-25] MEDS: Lisinopril 20 MG Tablet PO (07:43)
[2017-08-25 08:03] LABS: Absolute Lymphocyte Count 0.64 X10^3/ul (0.83-4.51); Absolute Neutrophil Count 2.5 X10^3/uL (2.0-7.7); Basophil# 0.09 X10^3/uL; Basophil% 2.1 % (0-1); Eosinophil# 0.09 X10^3/uL; Eosinophils% 2.1 % (0-5); Hematocrit 36.3 % (40-54); Hemoglobin 11.8 g/dl (13.0-16.5); Lymphocyte # 0.64 X10^3/ul (4.0); Lymphocyte % 14.7 % (19-41); Mean Corp Hgb Conc 32.5 g/gl (32-36); Mean Corpuscular Hgb 31.1 pg (27.0-32.0); Mean Corpuscular Volume 95.8 fL (80-94); Mean Platelet Vol. 9.8 fl (6.2-12.0); Neutrophil % 57.6 % (47-70); Platelet Count 224 K/mm3 (150-450); RBC Distribution Width CV 14.8 % (11.6-14.6); RBC Distribution Width SD 49.7 fl (35.1-43.9); Red Blood Count 3.79 M/mm3 (4.6-6.2); White Blood Count 4.3 K/mm3 (4.4-11.0)
[2017-08-25 08:05] LABS: POSITIVE COUNT NO; POSITIVE DIFFERENTIAL NO; POSITIVE MORPHOLOGY NO
[2017-08-25 08:18] LABS: ALB/GLOB Ratio 0.8 RATIO (0.9-2.4); AST(SGOT) 20 U/L (15-37); Alanine Aminotransfer ALT/SGPT 36 U/L (16-61); Albumin, Serum 2.7 g/dL (3.2-5.0); Alkaline Phosphatase 71 U/L (45-117); Anion Gap 6 (5-15); BUN 7 mg/dL (7-18); BUN/Creat Ratio 12.6 RATIO (10-20); Calcium,Total 8.6 mg/dL (8.5-10.1); Chloride 107 mmol/L (98-107); Creatinine, Serum 0.56 mg/dL (0.70-1.30); EST Glomerular Filtration Rate 160 mL/min (>60); Est Glom Filt Rate - Afr Amer 193 mL/min (>60); Estimated Creatinine Clearance 167.66 ml/min; Globulin 3.3 g/dL (2.2-4.2); Glucose 116 mg/dL (74-106); Potassium 3.2 mmol/L (3.5-5.1); Sodium Level 142 mmol/L (136-145)
[2017-08-25 08:28] LABS: Vancomycin, Trough Level 10.1 ug/mL (5.0-15.0)
[2017-08-25] MEDS: 0.9% NaCl Peripheral Flush Adult/Peds IV (08:35)
--- NOTE | 2017-08-25 08:59 | PHA.PHARE_ITS ---
Consult Pharmacy has been consulted to manage selected antiobiotic: Vancomycin Type of Consult: Follow-up Suspected Infection: Osteomyelitis Prior Doses of Antibiotics Received/Current Regimen: VANCO 1500MG IV Q12HRS: 08/24@2003, 08/25@0835 Labs: Sodium 142 mmol/L (136-145) 08/25/17 07:50 Potassium 3.2 mmol/L (3.5-5.1) L 08/25/17 07:50 Chloride 107 mmol/L (98-107) 08/25/17 07:50 Carbon Dioxide 29.0 mmol/L (21.0-32.0) 08/25/17 07:50 Anion Gap 6 (5-15) 08/25/17 07:50 BUN 7 mg/dL (7-18) 08/25/17 07:50 Creatinine 0.56 mg/dL (0.70-1.30) L 08/25/17 07:50 Est GFR (MDRD) Af Amer 193 mL/min (>60) 08/25/17 07:50 Est GFR (MDRD) Non-Af 160 mL/min (>60) 08/25/17 07:50 BUN/Creatinine Ratio 12.6 RATIO (10-20) 08/25/17 07:50 Glucose 116 mg/dL (74-106) H 08/25/17 07:50 Vancomycin Trough 10.1 ug/mL (5.0-15.0) 08/25/17 07:50 Microbiology: Microbiology 08/21/17 Unknown Tissue - Other Gram Stain - Final 08/21/17 Unknown Tissue - Other Wound Culture - Final Morganella morganii sp morgani Proteus vulgaris 08/21/17 Unknown Tissue - Other Anaerobic Culture - Preliminary Checking for anaerobes, further studies to follow. 08/21/17 Unknown Tissue - Other Gram Stain - Final 08/21/17 Unknown Tissue - Other Wound Culture - Final No growth aerobically. 08/21/17 Unknown Tissue - Other Anaerobic Culture - Preliminary 08/21/17 Unknown Tissue - Other Gram Stain - Final 08/21/17 Unknown Tissue - Other Wound Culture - Final No growth aerobically. 08/21/17 Unknown Tissue - Other Anaerobic Culture - Preliminary No growth in 48 hours. 08/19/17 19:05 Abs - Toe Gram Stain - Final 08/19/17 19:05 Abs - Toe Wound Culture - Final Proteus vulgaris Klebsiella pneumoniae sp pneum Enterococcus faecalis Weight used for dosin.5 kg Estimated Creatinine Clearance: 167ML/MIN Goal Trough: 15-20 mcg/mL Pharmacy Plan for Drug Dosing: Pharmacy to manage vancomycin per consult for the treatment of osteomyelitis. The patient had a trough drawn which resulted in a value of 10.1 (drawn 12hrs from last dose administered). Since the patient has confirmed osteo per progress notes, will aim for a trough goal of 15-20. Will increase the patient' s dose and recheck a trough to assess changes. PLAN/RECOMMENDATIONS 1. START vancomycin 1250mg IV Q8hrs 08/25 @1700 2. Trough scheduled for 08/27/17 @0830 to re-evaluate dosing change 3. Pharmacy will continue to monitor the patient daily and make changes as appropriate.
--- NOTE | 2017-08-25 09:05 | CASEMGMT ---
Addendum entered by Amber Vergara 08/25/17 10:59: Weather Reporter faxed over updated clinicals Original Note: Social Work Note SW faxed updated clinicals to [facility] in [place]. Infectious disease should see pt today and this worker will fax over updated notes when available. 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
--- NOTE | 2017-08-25 09:51 | PCM.PN.HOSP ---
Patient Problems: Active and Suspected Problems Encephalopathy (Acute) Chest pain (Acute) Anxiety (Acute) Alcohol withdrawal (Acute) Subjective: Patient was seen and examined. Pain is controlled. Denies any fever or chills or shortness of breath. Denied any tremors. Waiting on precertification for discharge to senior care facility for rehab. Vitals/I&O's: Vital Signs Temp Pulse Resp BP Pulse Ox 98.6 F 85 18 146/83 H 92 08/25/17 07:37 08/25/17 07:37 08/25/17 07:37 08/25/17 07:37 08/25/17 07:37 Oxygen Delivery Method Room Air Weight: 98.5 kg Body Mass Index (BMI) 27.1 Intake and Output for Last 24 Hours 08/23/17 08/24/17 08/25/17 23:59 23:59 23:59 Intake Total 3115 / 3115 2779 / 2779 1825 / 1825 Output Total 175 / 175 Balance 2940 / 2940 2779 / 2779 1825 / 1825 General: Alert, Oriented x3, Cooperative, No apparent distress HEENT: Atraumatic, PERRLA, EOMI, Normocephalic Neck: Supple Lungs: Clear to auscultation, Normal air movement Cardiovascular: Regular rate, Regular Rhythm, Normal S1, Normal S2, No murmurs Abdomen: Bowel Sounds Present, Soft, Non Tender, Non-Distended, No Hepato-splenomegaly Extremities: No edema, - - Right foods and lower leg has been bandaged and Riccardo wrapped. No edema of the lower extremity. Skin: No rashes, No breakdown Musculoskeletal: No Tenderness to Palpation of Joints or Extremities Lymphatic: No Cervical, Supraclavicular, or Inguinal Adenopathy Neurological: Cranial nerves II-XII grossly intact, Neuro grossly intact Psych/Mental Status: Normal Affect, Appropriate Microbiology Past 72 Hours 08/21/17 Unknown Tissue - Other Gram Stain - Final 08/21/17 Unknown Tissue - Other Wound Culture - Final Morganella morganii sp morgani Proteus vulgaris 08/21/17 Unknown Tissue - Other Anaerobic Culture - Preliminary Checking for anaerobes, further studies to follow. 08/21/17 Unknown Tissue - Other Gram Stain - Final 08/21/17 Unknown Tissue - Other Wound Culture - Final No growth aerobically. 08/21/17 Unknown Tissue - Other Anaerobic Culture - Preliminary 08/21/17 Unknown Tissue - Other Gram Stain - Final 08/21/17 Unknown Tissue - Other Wound Culture - Final No growth aerobically. 08/21/17 Unknown Tissue - Other Anaerobic Culture - Preliminary No growth in 48 hours. 08/19/17 19:05 Abs - Toe Gram Stain - Final 08/19/17 19:05 Abs - Toe Wound Culture - Final Proteus vulgaris Klebsiella pneumoniae sp pneum Enterococcus faecalis Laboratory Results 08/25/17 07:50: WBC 4.3 L, RBC 3.79 L, Hgb 11.8 L, Hct 36.3 L, MCV 95.8 H, MCH 31.1, MCHC 32.5, RDW 14.8 H, RDW Differential 49.7 H, Plt Count 224, MPV 9.8, Immature Gran % (Auto) 0.500, Neut % (Auto) 57.6, Lymph % (Auto) 14.7 L, Curry % (Auto) 23.0 H, Eos % (Auto) 2.1, Baso % (Auto) 2.1 H, Absolute Neuts (auto) 2.5, Absolute Lymphs (auto) 0.64 L, Total Counted Not Reportable 08/25/17 07:50: Sodium 142, Potassium 3.2 L, Chloride 107, Carbon Dioxide 29.0, Anion Gap 6, BUN 7, Creatinine 0.56 L, Estim Creat Clear Calc 167.66, Est GFR (MDRD) Af Amer 193, Est GFR (MDRD) Non-Af 160, BUN/Creatinine Ratio 12.6, Glucose 116 H, Calcium 8.6, Total Bilirubin 0.40, AST 20, ALT 36, Alkaline Phosphatase 71, Total Protein 6.0 L, Albumin 2.7 L, Globulin 3.3, Albumin/Globulin Ratio 0.8 L 08/25/17 07:50: Vancomycin Trough 10.1 Current Medications Acetaminophen (Tylenol) 650 mg PO Q6H PRN PRN PRN Reason: Mild Pain (1-3)/Temp > 100.7 F Last Admin: 08/22/17 22:26 Dose: 650 mg Al Hydroxide/Mg Hydroxide (Mylanta Ii) 30 ml PO Q6H PRN PRN PRN Reason: dyspesia Aspirin (Aspirin, Baby) 81 mg PO DAILY@0800 JOE Last Admin: 08/25/17 07:41 Dose: 81 mg Baclofen (Lioresal) 10 mg PO BID PRN PRN PRN Reason: PAIN Last Admin: 08/21/17 20:11 Dose: 10 mg Bisacodyl (Dulcolax) 10 mg RECTAL DAILY PRN PRN Reason: Constipation Clonidine (Catapres) 0.1 mg PO Q4 [facility] Last Admin: 08/25/17 05:57 Dose: 0.1 mg Dicyclomine HCl (Bentyl) 20 mg PO Q6H PRN PRN PRN Reason: abdominal discomfort Last Admin: 08/19/17 07:22 Dose: 20 mg Diltiazem HCl (Cardizem Cd) 240 mg PO DAILY [facility] Last Admin: 08/25/17 07:42 Dose: 240 mg Enoxaparin Sodium (Lovenox) 40 mg SC DAILY@1000 [facility] Last Admin: 08/24/17 08:37 Dose: 40 mg Famotidine (Pepcid) 20 mg PO BID [facility] Last Admin: 08/25/17 07:42 Dose: 20 mg Folic Acid (Folic Acid) 1 mg PO DAILY@0800 [facility] Last Admin: 08/25/17 07:41 Dose: 1 mg Gabapentin (Neurontin) 800 mg PO TIDCM [facility] Last Admin: 08/25/17 07:41 Dose: 800 mg Hydralazine HCl (Apresoline Iv) 10 mg IV Q4H PRN PRN PRN Reason: SBP > 160 Hydroxyzine Pamoate (Vistaril Pamoate Capsule) 50 mg PO Q6H PRN PRN PRN Reason: Mild Anxiety (score 1/3) Last Admin: 08/24/17 18:51 Dose: 50 mg Sodium Chloride () 250 mls @ 15 mls/hr IV .[id number] PRN PRN Reason: SALINE FLUSH Last Admin: 08/24/17 20:04 Dose: 15 mls/hr Ceftriaxone Sodium 2 gm/ (Sodium Chloride) 50 mls @ 100 mls/hr IV Q24 [facility] Last Admin: 08/24/17 09:00 Dose: 100 mls/hr Vancomycin HCl 1,250 mg/ (Sodium Chloride) 275 mls @ 183.333 mls/hr IV Q8H [facility] Ibuprofen (Motrin) 600 mg PO Q8H PRN PRN PRN Reason: Mild-Moderate Pain (1-5/10) Last Admin: 08/23/17 16:42 Dose: 600 mg Lisinopril (Zestril) 20 mg PO DAILY [facility] Last Admin: 08/25/17 07:43 Dose: 20 mg Loperamide HCl (Imodium) 2 mg PO Q2H PRN PRN PRN Reason: Diarrhea Last Admin: 08/20/17 19:11 Dose: 2 mg Magnesium Hydroxide (Milk Of Magnesia) 30 ml PO DAILY PRN PRN PRN Reason: Constipation Methocarbamol (Methocarbamol) 750 mg PO Q6H PRN PRN PRN Reason: Muscle Aches Last Admin: 08/21/17 20:11 Dose: 750 mg Metronidazole (Flagyl) 500 mg PO TID [facility] Last Admin: 08/25/17 05:57 Dose: 500 mg Morphine Sulfate () 1 - 2 mg IV Q4H PRN PRN PRN Reason: chest pain Last Admin: 08/21/17 15:11 Dose: 2 mg Multivitamins/Minerals ([facility]ivitamin With Minerals) [facility] Last Admin: 08/25/17 07:41 Dose: 1 tablet Nicotine (Nicoderm Cq (Pbkc)) 21 mg TRANSDERM. DAILY [facility] Last Admin: 08/24/17 08:57 Dose: 21 mg Nicotine Polacrilex (Rugby Nicotine (Pbkc)) 4 mg PO Q2H PRN PRN PRN Reason: Nicotine Craving Last Admin: 08/22/17 11:35 Dose: 4 mg Nitroglycerin (Nitrostat) 0.4 mg SUBLINGUAL Q5M PRN PRN Reason: CHEST PAIN Nutritional Formula (Rafi - [place] Flavor) 1 packet PO BIDCM [facility] Last Admin: 08/25/17 07:41 Dose: 1 packet Nutritional Formula (Lactose Free) (Ensure Enlive) 120 ml PO 4X/DAY [facility] Last Admin: 08/24/17 21:32 Dose: 120 ml Nystatin (Mycostatin Powder) 1 applic TOPICAL TID [facility] PRN Reason: Protocol Last Admin: 08/25/17 05:57 Dose: 1 applicatio Ondansetron HCl (Zofran) 4 mg IV Q8H PRN PRN PRN Reason: NAUSEA Ondansetron HCl (Zofran Odt) 4 mg PO Q6H PRN PRN PRN Reason: NAUSEA Oxycodone HCl (Oxyir) 5 mg PO Q4H PRN PRN PRN Reason: SEVERE PAIN (6-10/10) Last Admin: 08/25/17 04:26 Dose: 5 mg Pramipexole Dihydrochloride (Mirapex) 0.25 mg PO Q12H PRN PRN PRN Reason: Restless legs Quetiapine Fumarate (Seroquel) 25 mg PO Q6H PRN PRN PRN Reason: Moderate Anxiety (score 2/3) Last Admin: 08/24/17 22:55 Dose: 25 mg Senna (Senokot) 1 tablet PO QHS PRN PRN Reason: Constipation Last Admin: 08/22/17 11:34 Dose: 1 tablet Sodium Chloride () 5 - 30 ml IV UD PRN PRN Reason: SALINE FLUSH Last Admin: 08/25/17 08:35 Dose: 10 ml Thiamine HCl (Vitamin B1) 100 mg PO DAILYCM [facility] Last Admin: 08/25/17 07:42 Dose: 100 mg Trazodone HCl (Desyrel) 50 mg PO QHS [facility] Last Admin: 08/24/17 22:55 Dose: 50 mg Medical Necessity - Tobacco Use Smoking Status: Current every day smoker Tobacco Use: Cigarettes Assessment/Plan Active and Suspected Problems Encephalopathy (Acute) Chest pain (Acute) Anxiety (Acute) Alcohol withdrawal (Acute) 62 y/o male with PMHx, history of hypertension, chronic alcohol use disorder, anxiety depression, admitted on 08/18/17, with confusion, chest pain, acute alcohol withdrawal for medical stabilisation. 1. Acute osteomyelitis of the first and second right phalanges, initial wound cultures growing Proteus, Klebsiella and enterococcus, OR wound cultures growing Morganella and Proteus , pain is controlled, podiatry following, on vancomycin, ceftriaxone, Flagyl, ID consulted, will follow up on antibiotic regimen. 2. Acute alcohol withdrawal, improved, on the [facility] protocol, will continue to monitor on CIWA 3. Acute metabolic encephalopathy, multifactorial, secondary to current foot infection and alcohol withdrawal, resolved we will continue to monitor. 4. Chest pain, believed secondary to anxiety, resolved. 5. Abnormal liver enzymes, resolved, believed to be secondary to alcohol use disorder. 6. Nicotine use disorder, nicotine replacement 7. Hypertension, controlled, will continue with home regimen. 8. Anxiety and Depression, will need to be started on SSRI in the outpatient 9. GERD, on Famotidine. 10. Malnutrition ruled out from dietitian assessment 4 06/01/2017 11. Chronic Macrocytic Anemia, alcohol use disorder, on folic acid and Multivite 12. DVT Prophylaxis -Lovenox SC. 13. Disposition: DC to skilled rehab when bed is ready, ID to assist with antibiotic for discharge Code Visit Inpatient E&M: 70147 Subs Hosp L2
[2017-08-25] MEDS: hydrOXYzine PAM 25 MG Capsule 50 MG PO (09:58)
[2017-08-25] MEDS: Enoxaparin 40 MG/0.4 ML Syringe SC (09:59)
--- NOTE | 2017-08-25 11:13 | PN.ID_ITS ---
Patient Problems: Active and Suspected Problems Encephalopathy (Acute) Chest pain (Acute) Anxiety (Acute) Alcohol withdrawal (Acute) Subjective: Feeling ok, but some nausea and poor appetite this AM. No fever. - Physical Exam General: Alert, Cooperative Lungs: Clear to auscultation, Normal air movement Cardiovascular: Regular rate, Regular Rhythm Abdomen: Soft, Non Tender, Non-Distended Skin: Incision - foot wrapped Vital Signs Temp Pulse Resp BP Pulse Ox 98.6 F 85 18 146/83 H 92 08/25/17 07:37 08/25/17 07:37 08/25/17 07:37 08/25/17 07:37 08/25/17 07:37 Oxygen Delivery Method Room Air Weight: 98.5 kg Body Mass Index (BMI) 27.1 Intake and Output for Last 24 Hours 08/23/17 08/24/17 08/25/17 23:59 23:59 23:59 Intake Total 3115 / 3115 2779 / 2779 1825 / 1825 Output Total 175 / 175 Balance 2940 / 2940 2779 / 2779 1825 / 1825 Microbiology Past 72 Hours 08/21/17 Unknown Gram Stain - Final Tissue - Other Wound Culture - Final Morganella morganii sp morgani Proteus vulgaris Anaerobic Culture - Preliminary Checking for anaerobes, further studies to follow. 08/21/17 Unknown Gram Stain - Final Tissue - Other Wound Culture - Final No growth aerobically. Anaerobic Culture - Preliminary 08/21/17 Unknown Gram Stain - Final Tissue - Other Wound Culture - Final No growth aerobically. Anaerobic Culture - Preliminary No growth in 48 hours. 08/19/17 19:05 Gram Stain - Final Abs - Toe Wound Culture - Final Proteus vulgaris Klebsiella pneumoniae sp pneum Enterococcus faecalis Laboratory Tests Past 24 Hrs 08/25/17 08/25/17 08/25/17 07:50 07:50 07:50 WBC 4.3 L RBC 3.79 L Hgb 11.8 L Hct 36.3 L MCV 95.8 H MCH 31.1 MCHC 32.5 RDW 14.8 H RDW Differential 49.7 H Plt Count 224 MPV 9.8 Immature Gran % (Auto) 0.500 Neut % (Auto) 57.6 Lymph % (Auto) 14.7 L Kendall % (Auto) 23.0 H Eos % (Auto) 2.1 Baso % (Auto) 2.1 H Absolute Neuts (auto) 2.5 Absolute Lymphs (auto) 0.64 L Total Counted Not Reportable Sodium 142 Potassium 3.2 L Chloride 107 Carbon Dioxide 29.0 Anion Gap 6 BUN 7 Creatinine 0.56 L Estim Creat Clear Calc 167.66 Est GFR (MDRD) Af Amer 193 Est GFR (MDRD) Non-Af 160 BUN/Creatinine Ratio 12.6 Glucose 116 H Calcium 8.6 Total Bilirubin 0.40 AST 20 ALT 36 Alkaline Phosphatase 71 Total Protein 6.0 L Albumin 2.7 L Globulin 3.3 Albumin/Globulin Ratio 0.8 L Vancomycin Trough 10.1 Medical Necessity - Tobacco Use Smoking Status: Current every day smoker Tobacco Use: Cigarettes Route of nutrition/ use of supplements: [] Nutritional Intake: [] IV Site: [] Oneil Catheter: [] - Assessment/Plan Antibiotics: [] Assessment/Plan: [] Active and Suspected Problems Encephalopathy (Acute) Chest pain (Acute) Anxiety (Acute) Alcohol withdrawal (Acute) R 1st and 2nd toe wound with underlying osteo - wound cx with klebs, providencia , enterococcus. Taken to OR 08/[address] Rodríguez for amputation of toes. Surg cx now with proteus, klebs, enterococcus. Narrowed abx to vanc, ceftriaxone, flagyl. Plan on d/c to ECF with 6 weeks of current abx, stop date 10/02/17, weekly bmp, cbc, esr and vanc trough. Etoh withdrawal - alt/ast improving. will follow, d/w primary team. Rx written for labs and abx. ID follow up in 2- 3 weeks in my office or at wound center.
--- NOTE | 2017-08-25 11:18 | CASEMGMT ---
Social Work Note MIRNA placed a call to Letty in admissions at [facility] in [place] to inform her that this worker sent over updated clinical notes and to inform Letty to follow up with this worker when pre-cert is obtained. Per Letty she submitted for pre-cert and is waiting to hear back from pt's insurance. MIRNA will continue to follow along and assist with discharge planning. Plan: Discharge to [facility] pending pre-cert Amber Vergara [employer]SH[employer], CODE NUMBER STAMPER
--- NOTE | 2017-08-25 11:21 | NURSING ---
wound photo: right foot
--- NOTE | 2017-08-25 11:22 | NURSING ---
wound photo: right foot (plantar view)
[2017-08-25 12:35] VITALS: BP 132/81; PULSE 84; RESP 18; TEMP 37.3; O2SAT 94
--- NOTE | 2017-08-25 13:46 | PCM.TXEXTCAR ---
- Diet 08/21/17 11:12 Diet:Cardiac Diet Is pt able to select menu?: Yes - Routine Orders/Code Status Routine Lab Work: CBC - within 3 days, then weekly, BMP - within 3 days, then weekly - Wound(s) right greater toe Wound Type: Amputation Dressing Change: betadine with dry dressing Rt second toe Wound Type: Amputation Dressing Change: betadine with dry dressing right great toe lower Wound Type: Neuropathic/Diabetic Foot Ulcer RT FOOT Wound Type: Surgical Incision Dressing Change: Dry Sterile Dressing - Therapies Weight Bearing: Non weight bearing Extremity Affected:: Right Lower Physical Therapy: Eval and Treat Occupational Therapy: Eval and Treat - Allergies/Procedures Done in Hospital Allergies/Adverse Reactions: Allergies ciprofloxacin [From Cipro] Adverse Reaction (Verified 08/18/17 14:29) FELL FLAT ON MY FACE PT STATES MAKES ME FALL DOWN Procedures: - - s/p amputation of right 1st and 2nd phalanges - Type of Care/Length of Stay Estimated LOS: Convalescent Care Less Than 30 days Type of Care Needed: Skilled Rehab Potential: Good Prognosis: Good - Additional Orders/Day of Discharge Day of Discharge: 08/25/17 - Dietary and Speech Recommendations Dietitian Recommendations/Changes: Rec diet change to Cardiac d/t pmhx. - Follow Up Care Primary Care Physician: Care Physician,No Primary [Primary Care Provider] - Please follow up with your Primary Care Physician in: within 2 weeks Please Follow Up With: Erika Rodríguez DPM When: 1 week [facility]; [phone] Please Follow Up With: Hal Casarez MD When: 2-3 weeks at office or wound center
--- NOTE | 2017-08-25 14:05 | PCM.DC.SUM ---
Discharge Date and Diagnosis - Problem List Patient Problems: Active and Suspected Problems Encephalopathy (Acute) Chest pain (Acute) Anxiety (Acute) Alcohol withdrawal (Acute) Date of Admission: 08/20/17 Date of Discharge: 08/25/17 - Primary Discharge Diagnosis Active and Suspected Problems Encephalopathy (Acute) Chest pain (Acute) Anxiety (Acute) Alcohol withdrawal (Acute) Acute osteomyelitis of the first and second right phalanges Jacoby Sandoval right foot infection - Secondary Discharge Diagnosis Chronic Problems Urinary incontinence with continuous leakage (Chronic) Chronic back pain (Chronic) 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 Nonspecific left maxillary sinus disease. No paranasal sinus air-fluid levels. Electronically Signed: Jevon Alexandra MD at 13:01 EDT , Service support , Brain MRI 08/18/17 15:23 IMPRESSION: Mild cerebral and cerebellar atrophy. No significant white matter disease or evidence for acute infarct Electronically Signed: Hugh Ogden MD at 19:54 EDT , Service support , Foot X-Ray 08/19/17 19:05 IMPRESSION: Soft tissue swelling the distal first and second toe. Cannot exclude early changes of acute osteomyelitis of the distal phalanx of the great toe. Electronically Signed: Hugh Ogden MD at 23:49 EDT , Service support , Lower Extremity MRI 08/20/17 05:55 IMPRESSION: Osteomyelitis of the phalanges of the first and second toes. Electronically Signed: Luis Freeman MD at 20:17 EDT , Service support , Toe X-Ray 08/21/17 09:30 IMPRESSION: Status post amputation of the first and second toes at the metatarsophalangeal articulation. Electronically Signed: Boris DO [place] at 21:28 EDT Tel [phone], Service support , Consultations 08/19/17 19:04 Consult: Onc/Wound/hat block bench hand Routine Comment: RIGHT GREATER AND SECOND TOE- WOUNDS Operations: None, - - s/p right 1st and 2nd toes amputation Procedures: - - s/p right 1st and 2nd toes amputation Summary of Care Provided: 62 y/o male with PMHx, history of hypertension, chronic alcohol use disorder, anxiety depression, admitted on 08/18/17, with confusion, chest pain, acute alcohol withdrawal for medical stabilisation. 1. Acute osteomyelitis of the first and second right phalanges/ infected right foot, initial wound cultures growing Proteus, Klebsiella and enterococcus, OR wound cultures growing Morganella and Proteus , pain is controlled, podiatry and ID following, on vancomycin, ceftriaxone, Flagyl, will need antibiotics via PICC line for 6 weeks. Will up with infectious disease and podiatry in the outpatient. 2. Acute alcohol withdrawal, improved, on the [facility] protocol, on folic acid, thiamine, multivitamin 3. Acute metabolic encephalopathy, multifactorial, secondary to current foot infection and alcohol withdrawal, Zoloft 4. Chest pain, believed secondary to anxiety, resolved. 5. Abnormal liver enzymes, resolved, believed to be secondary to alcohol use disorder. 6. Nicotine use disorder, on nicotine replacement 7. Hypertension, controlled, on home regimen 8. Anxiety and Depression, will need to be started on SSRI in the outpatient 9. GERD, on Famotidine. 10. Malnutrition ruled out from dietitian assessment 08/19/2017 11. Chronic Macrocytic Anemia, alcohol use disorder, on folic acid and Multivite Discharge Diet: Low fat/ Low Cholesterol, 2000 mg Sodium Diet, - - rafi supplementation Discharge Activity: Return to Normal Activity, Use Crutches Weight Bearing Status: No weight bearing - right surgical shoe Keep extremity elevated above heart level: Right Leg Call your doctor if your incision/area has: Continuous Slow Oozing, Sudden Increased Bleeding, Increased Pain/ Swelling, Increased Redness, Foul Smelling Discharge, Swelling at the incision site Call your doctor if you observe: Fever of 101 or Higher, Calf discomfort, Uncontrolled pain Cleanse incision/area with: - - change dressing once a week (within 3-4 days) with betadine gauze, gauze to amputation sites and foot dorsum, kerlix, and tico wrap applied from amputation site and end on the leg. Home Medications: Medications to take at Discharge Baclofen 10 mg PO BID PRN 08/19/17 Diltiazem HCl [Diltiazem 24Hr ER] 240 mg PO DAILY 08/19/17 Gabapentin [Neurontin] 800 mg PO TID 08/19/17 Lisinopril 20 mg PO DAILY 08/19/17 Ceftriaxone 2 gm IV Q24 vial 08/25/17 Ensure Enlive 120 ml PO 4X/DAY liquid 08/25/17 Folic Acid 1 mg PO DAILY@0800 tablet 08/25/17 Metronidazole [Flagyl] 500 mg PO TID tablet 08/25/17 Multivitamins,Ther W-Minerals [Multivitamin With Minerals] 1 tablet PO DAILYCM tablet 08/25/17 Nicotine Polacrilex [Nicotine Gum] 4 mg PO Q2H PRN PRN gum 08/25/17 Nicotine [Nicoderm Cq] 21 mg TRANSDERM. DAILY patch 08/25/17 Nutritional Supplement [Rafi - ORANGE FLAVOR] 1 packet PO BIDCM packet 08/25/17 Nystatin Powder [Mycostatin Powder] 1 applic TOPICAL TID bottle 08/25/17 Oxycodone [Oxyir] 5 mg PO Q4H PRN PRN 2 Days #10 tablet 08/25/17 Thiamine Hydrochloride [Vitamin B1] 100 mg PO DAILYCM tablet 08/25/17 Vancomycin 1,250 mg IV Q8H vial 08/25/17 Primary Care Physician: Care Physician,No Primary [Primary Care Provider] - Please follow up with your Primary Care Physician in: within 2 weeks Please Follow Up With: Erika Rodríguez DPM When: 1 week [facility]; [phone] Please Follow Up With: Hal Casarez MD When: 2-3 weeks at office or wound center Disposition: [facility] facility Minutes spent on discharge:: 45 Patient Condition:: Stable Medical Necessity - Tobacco Use Smoking Status: Current every day smoker Tobacco Use: Cigarettes Meaningful Use Info Meaningful Use Diagnoses (Choose all that apply): None applicable Code Visit Inpatient E&M: 01149 Disch Hosp
--- NOTE | 2017-08-25 14:32 | CASEMGMT ---
Social Work Note SW received call from Letty at [facility] in [place] that pre-cert was obtained and pt is able to discharge today. SW updated Dr. Mistry of this and also updated pt. SW faxed over discharge paperwork including transfer to extended care facility, signed medication list, and script from Dr. Casarez to [facility]. Originals in SNF folder and copies on chart. SW set up transportation through [facility] via wheelchair van for 3:30pm. MIRNA updated SANCHEZ Michelle, pt, and Letty at [facility] of transportation time. Transportation form on chart and on SNF folder. SW completed [facility]. Original in SNF folder and copy on chart. MIRNA placed a call to Dr. Rodríguez's office and spoke with Tanya to ask if pt will be prescribed pain pills at discharge. Tanya called this worker back and states that pt won't be discharged with pain pills as pt reports to have no pain and that Dr. Rodríguez would like a follow up appointment with pt this week. SW left message for Letty at [facility] to update her of this and also of transportation time. SW asked pt if he would like this worker to call anyone to inform them that pt will be discharging today. Per previous notes, pt's instructor dramatic arts David Fermin would like to know when pt is being discharged (previous release form for instructor dramatic arts was filled out by pt). Pt states that he will call his mother to update her that he is leaving. MIRNA placed a call to pt's instructor dramatic arts David to update him that pt is being discharged to [facility] at 3:30pm today. David thanked this SW for updating him. Pt asked if [facility] would have Depends for pt and this SW informed pt that the [facility] will provide Depends for pt. Pt denied additional needs or concerns at this time. Plan: Discharge to [facility] in [place] Amber Vergara PHOTOGRAPHER, SUBSTATION OPERATOR CONVERSION
--- NOTE | 2017-08-25 15:09 | NURSING ---
REPORT CALLED TO VERONICA @ [facility]
[2017-08-25 15:15] VITALS: BP 132/81; PULSE 84; RESP 18; TEMP 37.3; O2SAT 94
== END 2017-08-25 15:14 | disposition skilled nursing facility (03) | DRG 217 ==
LOC: ED 12:23 → PCU 14:23 → MS2 14:40 → MS3 08-23 14:04
PROVIDERS: Family Medicine; Internal Medicine Infectious Disease; Podiatrist; Emergency Provider Emergency Medicine; Visit Provider Internal Medicine
PROC: 0Y6P0Z0 Detachment at Right 1st Toe, Complete, Open Approach (ICD-10-PCS; principal; 2017-08-21 11:45)
DX: M86.171 Other acute osteomyelitis, right ankle and foot (principal); L97.512 Non-pressure chronic ulcer of other part of right foot with fat layer exposed; L97.514 Non-pressure chronic ulcer of other part of right foot with necrosis of bone; F10.239 Alcohol dependence with withdrawal, unspecified; B95.2 Enterococcus as the cause of diseases classified elsewhere; B96.1 Klebsiella pneumoniae [K. pneumoniae] as the cause of diseases classified elsewhere; B96.4 Proteus (mirabilis) (morganii) as the cause of diseases classified elsewhere; Y90.6 Blood alcohol level of 120-199 mg/100 ml; R32 Unspecified urinary incontinence; R07.9 Chest pain, unspecified; F41.9 Anxiety disorder, unspecified; F32.9 Major depressive disorder, single episode, unspecified; F17.210 Nicotine dependence, cigarettes, uncomplicated; Z85.46 Personal history of malignant neoplasm of prostate; I10 Essential (primary) hypertension; R94.5 Abnormal results of liver function studies; K21.9 Gastro-esophageal reflux disease without esophagitis; D52.0 Dietary folate deficiency anemia; G93.41 Metabolic encephalopathy; M20.41 Other hammer toe(s) (acquired), right foot; R00.0 Tachycardia, unspecified; G62.9 Polyneuropathy, unspecified
CPT/HCPCS: 36415; 36569; 70450; 70551; 73620; 73660; 73718; 76000; 78452; 80053; 80061; 80202; 80307; 80320; 81001; 82607; 82728; 82746; 83036; 83540; 83550; 83735; 84100; 84443; 84484; 85025; 85610; 85652; 86140; 86141; 87015; 87070; 87075; 87077; 87102; 87116; 87186; 87205; 87206; 87640; 88304; 88305; 88311; 88312; 93005; 93017; 97110; 97116; 97162; 97165; 97168; 97530; 97535; 97802; 99283; A9500; J7030; J7040; J7050; J7120; A4216; G0480; J0696; J2405; J2785